=== PATIENT | female | born 1940 | race Caucasian/White ===

== ENCOUNTER 2016-10-07 08:00 | Outpatient (CLI) | payer MEDICARE, OTHER, MEDICAID | END 2016-10-07 08:01 | disposition home or self-care (01) | DX: J11.1 Influenza due to unidentified influenza virus with other respiratory manifestations (principal) ==

== ENCOUNTER 2016-10-14 08:00 | Outpatient (CLI) | payer MEDICARE, OTHER, MEDICAID | END 2016-10-14 08:01 | disposition home or self-care (01) | DX: N39.0 Urinary tract infection, site not specified (principal) ==

== ENCOUNTER 2016-11-21 10:47 | Outpatient (CLI) | payer MEDICARE, OTHER, MEDICAID | END 2016-11-21 10:48 | disposition home or self-care (01) | DX: N39.0 Urinary tract infection, site not specified (principal) ==

== ENCOUNTER 2016-12-25 18:50 | Outpatient (CLI) | payer MEDICARE, OTHER, MEDICAID | END 2016-12-25 18:51 | disposition home or self-care (01) | DX: N39.0 Urinary tract infection, site not specified (principal) ==

== ENCOUNTER 2017-03-08 06:21 | Outpatient (CLI) | payer MEDICARE, OTHER, MEDICAID ==
[2017-03-08 23:37] LABS: BILIRUBIN,URINE NEGATIVE (NEGATIVE); PH,URINE 6.5 PH (5.0-7.5)
[2017-03-09 00:02] LABS: UA CHARGE (STRIP ONLY) YES; UR CULTURE IF IND NOT INDICATED
== END 2017-03-08 06:22 | disposition home or self-care (01) ==
LOC: LAB.R 06:21
DX: R30.9 Painful micturition, unspecified (principal)
CPT/HCPCS: 81001; 81003; 87086

== ENCOUNTER 2017-04-11 16:30 | Outpatient (CLI) | payer MEDICARE, OTHER, MEDICAID ==
[2017-04-11 17:44] LABS: BILIRUBIN,URINE NEGATIVE (NEGATIVE); PH,URINE 7.5 PH (5.0-7.5)
[2017-04-11 17:52] LABS: UA w/ MICROSCOPIC CHARGE YES
[2017-04-11 17:53] LABS: WBC,URINE >25 /HPF (0-5)
[2017-04-11 17:54] LABS: UR CULTURE IF IND NOT INDICATED
== END 2017-04-11 16:31 | disposition home or self-care (01) ==
LOC: LAB.R 16:30
DX: N39.0 Urinary tract infection, site not specified (principal)
CPT/HCPCS: 81001; 81003; 87086

== ENCOUNTER 2017-04-17 08:00 | Outpatient (CLI) | payer MEDICARE, OTHER, MEDICAID ==
[2017-04-17 07:52] LABS: BASOPHILS % (AUTO) 0.5 %; EOSINOPHILS # (AUTO) 0.1 10^3/uL (0.0-0.7); HCT - HEMATOCRIT 38.2 % (37.0-47.0); HGB - HEMOGLOBIN 12.9 g/dL (12.0-16.0); LYMPHOCYTES # (AUTO) 1.6 10^3/uL (1.5-3.5); LYMPHOCYTES % (AUTO) 21.5 %; MEAN CORPUSCULAR HEMOGLOBIN 30.1 pg (27.0-31.0); MEAN CORPUSCULAR HGB CONC 33.7 g/dL (32.0-36.0); MEAN CORPUSCULAR VOLUME 89.3 fL (81.0-99.0); MEAN PLATELET VOLUME 7.9 fL (7.9-10.8); MONOCYTES # (AUTO) 0.6 10^3/uL (0.0-1.0); MONOCYTES % (AUTO) 8.3 %; NEUTROPHILS % (AUTO) 67.7 %; RED BLOOD COUNT 4.28 10^6/uL (4.20-5.40); RED CELL DISTRIBUTION WIDTH 12.5 % (12.0-15.0); UNCORRECTED WHITE BLOOD COUNT 7.4 x10^3/uL; WHITE BLOOD COUNT 7.4 x10^3/uL (4.8-10.8)
[2017-04-17 08:03] LABS: ALBUMIN/GLOBULIN RATIO 1.1 (1.0-2.2); BILIRUBIN,TOTAL 0.8 mg/dL (0.2-1.0); CALCIUM 9.6 mg/dL (8.5-10.3); CREATININE 1.1 mg/dL (0.4-1.0)
== END 2017-04-17 08:01 | disposition home or self-care (01) ==
LOC: LAB.R 08:00
DX: E07.9 Disorder of thyroid, unspecified (principal); I10 Essential (primary) hypertension
CPT/HCPCS: 80053; 84443; 85025

== ENCOUNTER 2017-04-21 01:49 | Emergency (ER) | payer MEDICARE, OTHER, MEDICAID ==
--- NOTE | 2017-04-21 05:00 | XRAY Preliminary Report ---
Exam: XR Hip w/Pelvis 2-3V RT IMPRESSION: 1. No acute fracture or dislocation seen. [facility] SITE ID: [id number]
--- NOTE | 2017-04-21 05:03 | XRAY Report ---
EXAM: RIGHT HIP AND PELVIS RADIOGRAPHY EXAM DATE: 04/21/2017 04:07 AM. HISTORY: Fall, right hip pain. COMPARISONS: None. TECHNIQUE: 1 view of the pelvis and 1 view of the hip. FINDINGS: Bones: No acute fracture seen. Joints: No dislocation. Hip joint spaces are fairly well preserved. Soft Tissues: Vascular calcifications. IMPRESSION: 1. No acute fracture or dislocation seen. [facility] Referring Provider Line: [phone] SITE ID: [id number]
--- NOTE | 2017-04-21 05:13 | ED Physician Documentation ---
PD HPI LOWER EXT INJURY - Stated complaint Stated Complaint: GLF 2 WEEKS AGO - Chief complaint Chief Complaint: General - History obtained from History obtained from: Patient, EMS - History of Present Illness PD HPI LOW EXT INJURY LOCATION: Right, Hip Type of injury: Fall Where injury occurred: Home Timing - onset: How many weeks ago (2) Timing - details: Gradual onset Improved by: Immobilization, Meds Associated symptoms: No: Weakness, Numbness, Tingling Contributing factors: No: Anticoagulated Similar symptoms before: Work up / diagnostics, Treatment Recently seen: Not recently seen - Additional information Additional information: Patient is a 77 year old snf patient who is presenting to the emergency department for hip pain. Patient fell two weeks ago and x-rays were negative at that time. patient complained of pain tonight so the snf gave the patient her pain meds, then sent the patient in for evaluation. Upon initial evaluation in the emergency department patient was pain free. Review of Systems Constitutional: denies: Fever Ears: denies: Ear pain Nose: denies: Rhinorrhea / runny nose Cardiac: denies: Chest pain / pressure Respiratory: denies: Cough GI: denies: Nausea, Vomiting Skin: denies: Rash, Lesions, Abrasion (s), Laceration (s) Musculoskeletal: reports: Extremity pain, Joint pain Neurologic: denies: Generalized weakness, Focal weakness, Numbness, Syncope, Headache, LOC Immunocompromised: denies: Immunocompromised PD PAST MEDICAL HISTORY - Past Medical History Past Medical History: Yes Cardiovascular: Hypertension, Pulmonary embolism, [place] Respiratory: Asthma Neuro: None Endocrine/Autoimmune: None GI: None 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 : None HEENT: None Psych: None Musculoskeletal: None Derm: None - Past Surgical History Past Surgical History: Yes Cardiovascular: Coronary stent HEENT: Tonsil/Adenoidectomy - Present Medications Home Medications: Ambulatory Orders Medication Instructions Recorded Confirmed Acetaminophen/Cod 300/30 [Tylenol 1 each PO Q4-6H 02/19/13 04/07/13 #3] Albuterol [Ventolin Hfa] 2 puffs INH Q4H PRN #1 inhaler 02/19/13 04/07/13 Atorvastatin Calcium [Lipitor] 20 mg PO 02/19/13 04/07/13 Metformin HCl [Glucophage] 500 mg PO 02/19/13 04/07/13 Metoprolol Tartrate [Lopressor] 12.5 mg PO BID 02/19/13 04/07/13 Oxybutynin [Ditropan] 5 mg PO BID 02/19/13 04/07/13 Valsartan [Diovan] 40 mg PO 02/19/13 04/07/13 Bisacodyl [Dulcolax] 10 mg PO BID 05/09/13 05/09/13 Furosemide [Lasix] 20 mg PO DAILY 05/09/13 05/09/13 Levofloxacin [Levaquin] 05/14/13 05/14/13 Clindamycin [Cleocin] 0 mg PO Q6H 05/20/13 05/20/13 - Allergies Allergies/Adverse Reactions: Allergies Allergy/AdvReac Type Severity Reaction Status Date / Time lisinopril Allergy Intermediate Edema Verified 04/07/13 10:19 - Social History Does the pt smoke?: Yes Smoking Status: Current every day smoker Does the pt drink ETOH?: Yes Does the pt have substance abuse?: No - Immunizations Immunizations are current?: Yes - POLST Patient has POLST: No PD ED PE NORMAL - Vitals Vital signs reviewed: Yes - General General: Alert and oriented X 3, No acute distress - HEENT HEENT: Atraumatic - Neck Neck: No bony TTP - Respiratory Respiratory: No respiratory distress - Abdomen Abdomen: Soft - Derm Derm: Normal color, Warm and dry - Neuro Neuro: Alert and oriented X 3, No sensory deficit, Normal speech - Psych Psych: Normal mood, Normal affect PD ED PE EXPANDED - Extremities Extremities: Right hip (mild tenderness to palpation of right hip, no gross deformity) Results - Vitals Vitals: Vital Signs - 24 hr 04/21/17 04/21/17 04/21/17 02:02 04:19 04:30 Temperature 36.5 C 36.0 C L Heart Rate 73 88 Respiratory 29 H 16 16 Rate Blood Pressure 133/86 H 158/93 H O2 Saturation 95 100 Oxygen O2 Source Room air - Rads (name of study) right hip x-ray Radiology: Final report received (no acute fracture or dislocation) PD MEDICAL DECISION MAKING - ED course Complexity details: reviewed old records, reviewed results, re-evaluated patient , d/w patient ED course: Patient was seen and examined at bedside. Patient was in no acute distress and was sent to imaging. When patient returned the results were reviewed. there was no new abnormalities. Patient required no further work up and was stable for discharge with outpatient follow up. Departure - Departure Disposition: 01 Home, Self Care Clinical Impression: Hip pain, right Condition: Good Instructions: ED Contusion Lower Ext Follow-Up: primary,care provider [Other] - As Needed Comments: Your diagnostics today showed no acute fracture or dislocation. You can take your prescribed pain medication and can try ice and heat. You should not be sent back to the emergency department if there is no new fall, or any other type of trauma. You can return at any time for any new injury, or new or uncontrollable symptoms.
[2017-04-21 09:57] VITALS: BP 130/78
--- NOTE | 2017-04-21 14:31 | ED Physician Documentation ---
ED Addendum - Addendum Addendum: 04/21/17 14:30 Took call from GEOVANNY RN, wanted clarification on discharge instructions. Chart reviewed. Told her that if pt needed or wanted reevaluation we would be happy to see her again despite language in discharge instructions.
== END 2017-04-21 09:48 | disposition home or self-care (01) ==
LOC: EDUNIT# → ED 01:49
DX: M25.551 Pain in right hip (principal); I10 Essential (primary) hypertension; I25.2 Old myocardial infarction; J45.909 Unspecified asthma, uncomplicated; Z86.711 Personal history of pulmonary embolism; F17.200 Nicotine dependence, unspecified, uncomplicated
CPT/HCPCS: 99283; 99284

== ENCOUNTER 2017-04-21 01:51 | Outpatient (CLI) | payer MEDICARE, OTHER, MEDICAID | END 2017-04-21 01:52 | disposition critical access hospital (66) | LOC: EMS 01:51 | PROVIDERS: ATTEND Surgery | DX: M25.551 Pain in right hip (principal) | CPT/HCPCS: A0425; A0429 ==

== ENCOUNTER 2017-04-23 10:48 | Outpatient (CLI) | payer MEDICARE, OTHER, MEDICAID ==
--- NOTE | 2017-04-23 12:38 | CT Preliminary Report ---
Exam: CT Lower Extremity Right W/O IMPRESSION: 1. Right superior and inferior pubic ramus fracture. 2. Sagittally oriented fracture through the lateral third of the sacrum on the right. [facility] SITE ID: [id number]
--- NOTE | 2017-04-23 13:24 | CT Report ---
EXAM: RIGHT HIP CT WITHOUT CONTRAST EXAM DATE: 04/23/2017 12:08 PM. CLINICAL HISTORY: Fall, right hip pain. COMPARISON: Plain x-ray 04/21/2017. TECHNIQUE: Thin-section axial images were acquired of the hip without contrast. Post-processing: Ifeoma nal and sagittal reformats. Other: None. In accordance with CT protocol optimization, one or more of the following dose reduction techniques w ere utilized for this exam: automated exposure control, adjustment of mA and/or KV based on patient s ize, or use of iterative reconstructive technique. FINDINGS: Bones: 1. Right superior and inferior pubic ramus fracture. 2. Sagittally oriented fracture through the lateral third of the sacrum on the right side. 3. Significant osteopenic changes. No other fractures. Joints: Joint spaces show symmetric narrowing, no calcified loose bodies or large joint effusions. Musculature: Normal. No fatty atrophy. Other: The visualized intraperitoneal structures are unremarkable. IMPRESSION: 1. Right superior and inferior pubic ramus fracture. 2. Sagittally oriented fracture through the lateral third of the sacrum on the right. [facility] Referring Provider Line: [phone] SITE ID: [id number]
== END 2017-04-23 10:49 | disposition home or self-care (01) ==
LOC: DI 10:48
PROVIDERS: ATTEND Family Medicine
DX: S32.591A Other specified fracture of right pubis, initial encounter for closed fracture (principal); S32.10XA Unspecified fracture of sacrum, initial encounter for closed fracture; M85.80 Other specified disorders of bone density and structure, unspecified site

== ENCOUNTER 2017-04-26 06:30 | Outpatient (CLI) | payer MEDICARE, OTHER, MEDICAID ==
[2017-04-26 07:27] LABS: CALCIUM 8.9 mg/dL (8.5-10.3); CREATININE 1.4 mg/dL (0.4-1.0); POTASSIUM 4.2 mmol/L (3.5-5.0)
== END 2017-04-26 06:31 ==
LOC: LAB.R 06:30
DX: E87.1 Hypo-osmolality and hyponatremia (principal)
CPT/HCPCS: 80048

== ENCOUNTER 2017-04-27 11:20 | Outpatient (CLI) | payer MEDICARE, OTHER, MEDICAID ==
[2017-04-27 13:24] LABS: BILIRUBIN,URINE NEGATIVE (NEGATIVE); PH,URINE 6.5 PH (5.0-7.5)
[2017-04-27 13:25] LABS: UA w/ MICROSCOPIC CHARGE YES
[2017-04-27 13:32] LABS: UR CULTURE IF IND NOT INDICATED; WBC,URINE 0-3 /HPF (0-5)
== END 2017-04-27 11:21 | disposition home or self-care (01) ==
LOC: LAB.R 11:20
DX: N39.0 Urinary tract infection, site not specified (principal)
CPT/HCPCS: 81001; 81003; 87086

== ENCOUNTER 2017-04-28 11:40 | Outpatient (CLI) | payer MEDICARE, OTHER, MEDICAID ==
[2017-04-28 16:44] LABS: BILIRUBIN,URINE NEGATIVE (NEGATIVE); PH,URINE 6.5 PH (5.0-7.5)
[2017-04-28 16:48] LABS: UA CHARGE (STRIP ONLY) YES; UR CULTURE IF IND NOT INDICATED
== END 2017-04-28 11:41 | disposition home or self-care (01) ==
LOC: LAB.R 11:40
DX: N39.0 Urinary tract infection, site not specified (principal)
CPT/HCPCS: 81001; 81003; 87086

== ENCOUNTER 2017-05-13 08:00 | Outpatient (CLI) | payer MEDICARE, OTHER, MEDICAID ==
[2017-05-13 09:52] LABS: BASOPHILS # (AUTO) 0.1 10^3/uL (0.0-0.1); BASOPHILS % (AUTO) 0.7 %; EOSINOPHILS # (AUTO) 0.3 10^3/uL (0.0-0.7); EOSINOPHILS % (AUTO) 4.3 %; HCT - HEMATOCRIT 40.6 % (37.0-47.0); HGB - HEMOGLOBIN 13.5 g/dL (12.0-16.0); LYMPHOCYTES # (AUTO) 1.5 10^3/uL (1.5-3.5); LYMPHOCYTES % (AUTO) 20.5 %; MEAN CORPUSCULAR HEMOGLOBIN 29.7 pg (27.0-31.0); MEAN CORPUSCULAR HGB CONC 33.2 g/dL (32.0-36.0); MEAN CORPUSCULAR VOLUME 89.5 fL (81.0-99.0); MEAN PLATELET VOLUME 7.8 fL (7.9-10.8); MONOCYTES # (AUTO) 0.5 10^3/uL (0.0-1.0); MONOCYTES % (AUTO) 6.1 %; NEUTROPHILS % (AUTO) 68.4 %; RED BLOOD COUNT 4.54 10^6/uL (4.20-5.40); RED CELL DISTRIBUTION WIDTH 13.2 % (12.0-15.0); UNCORRECTED WHITE BLOOD COUNT 7.4 x10^3/uL; WHITE BLOOD COUNT 7.4 x10^3/uL (4.8-10.8)
[2017-05-13 09:53] LABS: BILIRUBIN,URINE NEGATIVE (NEGATIVE)
== END 2017-05-13 08:01 | disposition home or self-care (01) ==
LOC: LAB.R 08:00
DX: R68.89 Other general symptoms and signs (principal); N39.0 Urinary tract infection, site not specified
CPT/HCPCS: 81003; 85025

== ENCOUNTER 2017-05-29 16:10 | Outpatient (CLI) | payer MEDICARE, OTHER, MEDICAID ==
[2017-05-29 22:18] LABS: BASOPHILS # (AUTO) 0.1 10^3/uL (0.0-0.1); BASOPHILS % (AUTO) 0.6 %; EOSINOPHILS # (AUTO) 0.3 10^3/uL (0.0-0.7); EOSINOPHILS % (AUTO) 3.5 %; HCT - HEMATOCRIT 39.1 % (37.0-47.0); HGB - HEMOGLOBIN 12.9 g/dL (12.0-16.0); LYMPHOCYTES # (AUTO) 1.8 10^3/uL (1.5-3.5); LYMPHOCYTES % (AUTO) 19.7 %; MEAN CORPUSCULAR HGB CONC 32.9 g/dL (32.0-36.0); MEAN CORPUSCULAR VOLUME 91.2 fL (81.0-99.0); MEAN PLATELET VOLUME 8.1 fL (7.9-10.8); MONOCYTES # (AUTO) 0.4 10^3/uL (0.0-1.0); MONOCYTES % (AUTO) 4.7 %; NEUTROPHILS # (AUTO) 6.4 10^3/uL (1.5-6.6); NEUTROPHILS % (AUTO) 71.5 %; RED BLOOD COUNT 4.29 10^6/uL (4.20-5.40); RED CELL DISTRIBUTION WIDTH 13.6 % (12.0-15.0); UNCORRECTED WHITE BLOOD COUNT 8.9 x10^3/uL; WHITE BLOOD COUNT 8.9 x10^3/uL (4.8-10.8)
[2017-05-29 23:08] LABS: BILIRUBIN,TOTAL 0.6 mg/dL (0.2-1.0); CALCIUM 9.8 mg/dL (8.5-10.3); CREATININE 1.6 mg/dL (0.4-1.0); POTASSIUM 4.8 mmol/L (3.5-5.0); TOTAL PROTEIN 6.1 g/dL (6.7-8.2)
== END 2017-05-29 16:11 | disposition home or self-care (01) ==
LOC: LAB.R 16:10
DX: J44.9 Chronic obstructive pulmonary disease, unspecified (principal)
CPT/HCPCS: 80053; 85025

== ENCOUNTER 2017-06-16 06:23 | Outpatient (CLI) | payer MEDICARE, OTHER, MEDICAID ==
[2017-06-16 19:58] LABS: CALCIUM 9.6 mg/dL (8.5-10.3); CREATININE 1.2 mg/dL (0.4-1.0); POTASSIUM 4.1 mmol/L (3.5-5.0)
== END 2017-06-16 06:24 | disposition home or self-care (01) ==
LOC: LAB.R 06:23
DX: E88.9 Metabolic disorder, unspecified (principal)
CPT/HCPCS: 80048

== ENCOUNTER 2017-06-19 13:45 | Outpatient (CLI) | payer MEDICARE, OTHER, MEDICAID ==
[2017-06-19 20:08] LABS: BILIRUBIN,URINE NEGATIVE (NEGATIVE); PH,URINE 8.5 PH (5.0-7.5)
[2017-06-19 20:10] LABS: UA w/ MICROSCOPIC CHARGE YES
[2017-06-19 20:23] LABS: UR CULTURE IF IND INDICATED; WBC,URINE >25 /HPF (0-5)
== END 2017-06-19 13:46 | disposition home or self-care (01) ==
LOC: LAB.R 13:45
DX: R39.0 Extravasation of urine (principal)
CPT/HCPCS: 81001; 81003; 87077; 87086

== ENCOUNTER 2017-07-02 08:00 | Outpatient (CLI) | payer MEDICARE, OTHER, MEDICAID ==
[2017-07-02 17:48] LABS: HEMOGLOBIN A1C 0.45 g/dL
== END 2017-07-02 08:01 | disposition home or self-care (01) ==
LOC: LAB.R 08:00
DX: E03.9 Hypothyroidism, unspecified (principal); E11.9 Type 2 diabetes mellitus without complications
CPT/HCPCS: 83036; 84443

== ENCOUNTER 2017-08-09 08:00 | Outpatient (CLI) | payer MEDICARE, OTHER, MEDICAID ==
[2017-08-09 17:06] LABS: CALCIUM 9.5 mg/dL (8.5-10.3); CREATININE 1.1 mg/dL (0.4-1.0); POTASSIUM 4.3 mmol/L (3.5-5.0)
== END 2017-08-09 08:01 | disposition home or self-care (01) ==
LOC: LAB.R 08:00
DX: R79.89 Other specified abnormal findings of blood chemistry (principal)
CPT/HCPCS: 80048

== ENCOUNTER → 2017-08-14 | Outpatient (CLI) | payer MEDICARE, OTHER, MEDICAID ==
[2017-08-14 14:40] LABS: CALCIUM 9.6 mg/dL (8.5-10.3); CREATININE 1.2 mg/dL (0.4-1.0); POTASSIUM 4.4 mmol/L (3.5-5.0)
== END ==
LOC: LAB.R 10:55
DX: R79.89 Other specified abnormal findings of blood chemistry (principal)
CPT/HCPCS: 80048

== ENCOUNTER 2017-08-21 14:25 | Outpatient (CLI) | payer MEDICARE, OTHER, MEDICAID ==
[2017-08-21 13:41] LABS: POTASSIUM 3.9 mmol/L (3.5-5.0)
[2017-08-21 13:42] LABS: CALCIUM 9.5 mg/dL (8.5-10.3); CREATININE 1.2 mg/dL (0.4-1.0)
== END 2017-08-21 14:26 | disposition home or self-care (01) ==
LOC: LAB.WCP 14:25 → LAB.R 14:26
DX: I50.9 Heart failure, unspecified (principal)
CPT/HCPCS: 80048

== ENCOUNTER 2017-08-27 10:43 | Outpatient (CLI) | payer MEDICARE, OTHER, MEDICAID ==
[2017-08-27 12:51] LABS: CALCIUM 9.5 mg/dL (8.5-10.3); CREATININE 1.1 mg/dL (0.4-1.0); POTASSIUM 4.2 mmol/L (3.5-5.0)
== END 2017-08-27 10:44 | disposition home or self-care (01) ==
LOC: LAB.R 10:43
DX: R79.89 Other specified abnormal findings of blood chemistry (principal)
CPT/HCPCS: 80048; 83880

== ENCOUNTER 2017-09-07 11:25 | Outpatient (CLI) | payer MEDICARE, OTHER, MEDICAID ==
[2017-09-07 11:59] LABS: CALCIUM 9.5 mg/dL (8.5-10.3); CREATININE 1.4 mg/dL (0.4-1.0); POTASSIUM 3.8 mmol/L (3.5-5.0)
== END 2017-09-07 11:26 | disposition home or self-care (01) ==
LOC: LAB.R 11:25
DX: I50.9 Heart failure, unspecified (principal)
CPT/HCPCS: 80048

== ENCOUNTER 2017-09-13 10:25 | Outpatient (CLI) | payer MEDICARE, OTHER, MEDICAID ==
[2017-09-13 12:04] LABS: CALCIUM 9.2 mg/dL (8.5-10.3); CREATININE 1.2 mg/dL (0.4-1.0); POTASSIUM 3.8 mmol/L (3.5-5.0)
== END 2017-09-13 10:26 | disposition home or self-care (01) ==
LOC: LAB.R 10:25
DX: I50.9 Heart failure, unspecified (principal)
CPT/HCPCS: 80048

== ENCOUNTER 2017-10-16 08:00 | Outpatient (CLI) | payer MEDICARE, OTHER, MEDICAID ==
[2017-10-17 01:55] LABS: BACTERIA,URINE Moderate /HPF (None Seen); BILIRUBIN,URINE NEGATIVE (NEGATIVE); CLARITY,URINE HAZY (CLEAR); GLUCOSE, URINE (UA) NEGATIVE (NEGATIVE); KETONES,URINE (UA) NEGATIVE (NEGATIVE); LEUKOCYTE ESTERASE, URINE TRACE (NEGATIVE); NITRITE,URINE NEGATIVE (NEGATIVE); OCCULT BLOOD,URINE NEGATIVE (NEGATIVE); PROTEIN,URINE NEGATIVE (NEGATIVE); RBC,URINE 0-5 /HPF (0-5); SQUAMOUS EPITHELIAL CELL,UR RARE Squamous (<= Few); UROBILINOGEN,URINE 0.2 (NORMAL) E.U./dL (NORMAL)
== END 2017-10-16 23:59 | disposition home or self-care (01) ==
LOC: LAB.R 08:00
DX: R30.0 Dysuria (principal); I50.9 Heart failure, unspecified
CPT/HCPCS: 80048; 81001; 81003; 87077; 87086

== ENCOUNTER 2017-10-16 19:15 | Outpatient (CLI) | payer MEDICARE, OTHER, MEDICAID ==
[2017-10-16 23:54] LABS: CREATININE 1.1 mg/dL (0.4-1.0)
== END 2017-10-16 19:16 | disposition home or self-care (01) ==
LOC: LAB.R 19:15
DX: I50.9 Heart failure, unspecified (principal)
CPT/HCPCS: 80048

== ENCOUNTER 2017-12-27 08:00 | Outpatient (CLI) | payer MEDICARE, OTHER, MEDICAID | END 2017-12-27 08:01 | disposition home or self-care (01) | LOC: LAB.R 08:00 | DX: A08.11 Acute gastroenteropathy due to Norwalk agent (principal) | CPT/HCPCS: 87493; 87798 ==

== ENCOUNTER 2018-01-14 11:41 | Outpatient (CLI) | payer MEDICARE, OTHER, MEDICAID | END 2018-01-14 11:42 | disposition critical access hospital (66) | LOC: EMS 11:41 | PROVIDERS: ATTEND Surgery | DX: R41.0 Disorientation, unspecified (principal) | CPT/HCPCS: A0425; A0429 ==

== ENCOUNTER 2018-01-14 11:48 | Emergency (ER) | payer MEDICARE, OTHER, MEDICAID ==
--- NOTE | 2018-01-14 12:19 | CT Report ---
EXAM: CT HEAD EXAM DATE: 01/14/2018 12:10 PM. CLINICAL HISTORY: Weakness right sided. COMPARISON: CT head 04/10/2013. TECHNIQUE: Multiaxial CT images were obtained from the foramen magnum to the vertex. Reformats: Coron al. IV contrast: None. In accordance with CT protocol optimization, one or more of the following dose reduction techniques w ere utilized for this exam: automated exposure control, adjustment of mA and/or KV based on patient s ize, or use of iterative reconstructive technique. FINDINGS: Parenchyma: No intraparenchymal hemorrhage. No evidence of mass, midline shift, or CT findings of acu te infarction. Chronic appearing small right basal ganglia lacunar infarct. Brown-white differentiatio n is otherwise distinct. Diffuse chronic microangiopathic white matter changes are evident. Extraaxial Spaces: Normal for age. No subdural or epidural collections identified. Ventricles: The ventricles and cortical sulci are mildly enlarged, consistent with age-related tissue loss. Sinuses and orbits: Imaged paranasal sinuses, orbits, and mastoids show no significant abnormality. Bones: No evidence of fracture or calvarial defect. Other: None. IMPRESSION: Generalized age-related cortical atrophic and probable chronic microvascular changes with out evidence of acute intracranial abnormality. [facility] The call report notification system was initiated by Dr. Sam Coppola at 12:15 hrs on 01/14/18. The above findings were discussed with Dr. Perrin by Dr. Sam Coppola at 12:17 hrs on 01/14/18. Referring Provider Line: [phone] SITE ID: [id number]
--- NOTE | 2018-01-14 12:24 | ED Physician Documentation ---
PD HPI FOCAL NEURO - Stated complaint Stated Complaint: Weakness - Chief complaint Chief Complaint: Neuro - History obtained from History obtained from: Patient, Caregiver (Rn from [facility] [place] bedside, [place]) - History of Present Illness Timing - onset: Today (This is a 77-year-old woman who presents from a detention. She has a history of PE, A. fib, and aortofemoral thrombus, only on aspirin, no other anticoagulation. She also has reported dementia. Starting around 1115 she developed slurred speech and a right facial droop and confusion which persists. Patient denies headache. No history of TIA or stroke. 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 : None HEENT: None Psych: None Musculoskeletal: None Derm: None - Past Surgical History Past Surgical History: Yes Cardiovascular: Coronary stent HEENT: Tonsil/Adenoidectomy - Present Medications Home Medications: Ambulatory Orders Medication Instructions Recorded Confirmed Oxybutynin [Ditropan] 5 mg PO BID 02/19/13 01/14/18 Valsartan [Diovan] 40 mg PO DAILY 02/19/13 01/14/18 Acetaminophen [Tylenol] 650 mg PO BID 01/14/18 01/14/18 Aspirin Chewable [[place] 81 mg PO DAILY 01/14/18 01/14/18 Aspirin] Chlorthalidone 25 mg PO DAILY 01/14/18 01/14/18 Hydrocodone/Acetaminophen 1 each PO Q3H PRN 01/14/18 01/14/18 [Hydrocodone-Acetamin 5-325 mg] Levothyroxine Sodium [Synthroid] 50 mcg PO MOTUWETHFRSA 01/14/18 01/14/18 Levothyroxine Sodium [Synthroid] 100 mcg PO MATTHEWS 01/14/18 01/14/18 Metoprolol Succinate [Toprol Xl] 25 mg PO DAILY 01/14/18 01/14/18 QUEtiapine [SEROquel] 75 mg PO DAILY 01/14/18 01/14/18 QUEtiapine [SEROquel] 100 mg PO QPM 01/14/18 01/14/18 Saccharomyces Boulardii [Florastor] 250 mg PO BID 01/14/18 01/14/18 traMADol [Ultram] 25 mg PO BID 01/14/18 01/14/18 - Allergies Allergies/Adverse Reactions: Allergies Allergy/AdvReac Type Severity Reaction Status Date / Time lisinopril Allergy Intermediate Edema Verified 04/07/13 10:19 - Social History Does the pt smoke?: Yes Smoking Status: Current every day smoker Does the pt drink ETOH?: Yes Does the pt have substance abuse?: No - Immunizations Immunizations are current?: Yes - POLST Patient has POLST: No PD ED PE NORMAL - Vitals Vital signs reviewed: Yes - General General: No acute distress, Well developed/nourished, Other (She has trouble coming up with the date, she quickly identifies the month as December, with difficulty she eventually says it is the year , but she seems to think it is 1917.) - HEENT HEENT: PERRL, EOMI - Neck Neck: Supple, no meningeal sign, No bony TTP - Cardiac Cardiac: Other (Irregularly irregular) - Respiratory Respiratory: No respiratory distress, Clear bilaterally - Abdomen Abdomen: Normal bowel sounds, Soft, Non tender - Neuro Neuro: Alert and oriented X 3 Eye Opening: Spontaneous Motor: Obeys Commands Verbal: Oriented GCS Score: 15 - Psych Psych: Normal mood, Normal affect NIHSS - Time Time: 12:15 - Level of Consciousness Level of consciousness: (0) Alert, Keenly responsive LOC Questions: (1) Answers one Q correctly LOC Commands: (0) Performs both correctly - Gaze Best Gaze: (0) Normal - Visual Visual: (0) No loss - Facial Palsy Facial Palsy: (1) Minor paralysis (Right side) - Motor Arms (both separate) Motor Arm (right): (0) No drift Motor Arm (left): (0) No drift - Motor Legs (both separate) Motor Leg (right): (0) No drift Motor Leg (left): (0) No drift - Limb Ataxia Limb Ataxia: (0) Absent - Sensory Sensory: (0) Normal - Best Language Best Language: (1) [id number] - Dysarthria Dysarthria: (0) Normal - Extinction and Inattention (formally neg Extinction and inattention: (0) No abnormality - Total Score/Results Total Score/Result: 3 Results - Vitals Vitals: Vital Signs - 24 hr 01/14/18 01/14/18 01/14/18 11:54 13:33 15:00 Temperature 36.6 C Heart Rate 68 81 97 Respiratory 17 14 22 Rate Blood Pressure 156/96 H 140/97 H O2 Saturation 97 100 97 Oxygen O2 Source Room air - EKG (time done) 1257 Rate: Rate (enter#) (79) Rhythm: NSR [place]: Normal Intervals: Normal PA Ischemia: Q waves (inferior) Computer interpretation: Agree with computer - Labs Labs: Laboratory Tests 01/14/18 01/14/18 01/14/18 11:55 11:55 11:55 WBC 6.9 RBC 4.50 Hgb 13.6 Hct 40.6 MCV 90.3 MCH 30.3 MCHC 33.6 RDW 13.5 Plt Count 184 MPV 7.7 L Neut # 4.3 Lymph # 1.6 [place] # 0.5 Eos # 0.5 Baso # 0.1 Absolute Nucleated RBC 0.00 Nucleated RBC % 0.0 PT 11.9 INR 1.1 Whole Blood INR Sodium 131 L Potassium 4.4 Chloride 99 L Carbon Dioxide 24 Anion Gap 8.0 BUN 17 Creatinine 1.1 H Estimated GFR (MDRD) 48 L Glucose 92 Calcium 9.6 Total Bilirubin 0.6 AST 24 ALT 18 Alkaline Phosphatase 104 Total Protein 7.5 Albumin 3.9 Globulin 3.6 Albumin/Globulin Ratio 1.1 Lipase 29 Urine Color Urine Clarity Urine pH Ur Specific [place] Urine Protein Urine Glucose (UA) Urine Ketones Urine Occult Blood Urine Nitrite Urine Bilirubin Urine Urobilinogen Ur Leukocyte Esterase Ur Microscopic Review Urine Culture Comments 01/14/18 01/14/18 12:39 12:48 WBC RBC Hgb Hct MCV MCH MCHC RDW Plt Count MPV Neut # Lymph # [place] # Eos # Baso # Absolute Nucleated RBC Nucleated RBC % PT INR Whole Blood INR < 0.9 Sodium Potassium Chloride Carbon Dioxide Anion Gap BUN Creatinine Estimated GFR (MDRD) Glucose Calcium Total Bilirubin AST ALT Alkaline Phosphatase Total Protein Albumin Globulin Albumin/Globulin Ratio Lipase Urine Color YELLOW Urine Clarity CLEAR Urine pH 7.0 Ur Specific [place] <=1.005 Urine Protein NEGATIVE Urine Glucose (UA) NEGATIVE Urine Ketones NEGATIVE Urine Occult Blood NEGATIVE Urine Nitrite NEGATIVE Urine Bilirubin NEGATIVE Urine Urobilinogen 0.2 (NORMAL) Ur Leukocyte Esterase NEGATIVE Ur Microscopic Review NOT INDICATED Urine Culture Comments NOT INDICATED - Rads (name of study) Ct Head and Neck Angio Radiology: EMP read contemporaneously (Lot's of atherosclerosis and DJD neck, no lg vessel occlusion) PD MEDICAL DECISION MAKING - ED course ED course: 77-year-old woman presents with symptoms of an acute CVA in the window for TPA. Her functional status at baseline is not great and she is comfort care only. I am not sure what the historical reason for her not being on anticoagulation is , she certainly has several reasons that she would be, the note that accompanies her from the detention from Dr. Odom states that he did not know the historical reason for her not being on anticoagulation. I assume there may be have been some contraindication. I discussed the case with [place] tele-stroke, Dr. Mike who recommended against TPA but recommended for vessel imaging to rule out a large vessel occlusion, if negative he recommends this be treated conservatively without TPA and consideration for starting of anticoagulation in a couple of weeks. Spoke with Dr Christian for obs at 241pm However when I went to tell her this she adamantly refused staying in the hospital. She has a listed history of dementia but I believe she is capable of making decisions in her own healthcare. She is alert and oriented and is able to verbalize back to me the risks of leaving AGAINST MEDICAL ADVICE. I updated Dr. Christian I also left a voicemail for Dr. Odom, the medical control for [facility] regarding what had transpired. Departure - Departure Disposition: 07 Against Medical Advice Clinical Impression: Cerebrovascular accident (CVA) Qualifiers: CVA mechanism: embolism Precerebral and cerebral artery: unspecified precerebral artery Qualified Code(s): I63.10 - Cerebral infarction due to embolism of unspecified precerebral artery Condition: Serious Discharge Date/Time: 01/14/18 15:57
[2018-01-14 12:35] LABS: BASOPHILS # (AUTO) 0.1 10^3/uL (0.0-0.1); BASOPHILS % (AUTO) 0.9 %; EOSINOPHILS # (AUTO) 0.5 10^3/uL (0.0-0.7); EOSINOPHILS % (AUTO) 7.8 %; HGB - HEMOGLOBIN 13.6 g/dL (12.0-16.0); LYMPHOCYTES # (AUTO) 1.6 10^3/uL (1.5-3.5); LYMPHOCYTES % (AUTO) 22.9 %; MEAN CORPUSCULAR HEMOGLOBIN 30.3 pg (27.0-31.0); MEAN CORPUSCULAR HGB CONC 33.6 g/dL (32.0-36.0); MEAN CORPUSCULAR VOLUME 90.3 fL (81.0-99.0); MEAN PLATELET VOLUME 7.7 fL (7.9-10.8); MONOCYTES # (AUTO) 0.5 10^3/uL (0.0-1.0); MONOCYTES % (AUTO) 6.5 %; NEUTROPHILS # (AUTO) 4.3 10^3/uL (1.5-6.6); NEUTROPHILS % (AUTO) 61.9 %; PLT - PLATELET COUNT 184 10^3/uL (130-450); RED CELL DISTRIBUTION WIDTH 13.5 % (12.0-15.0); WHITE BLOOD COUNT 6.9 x10^3/uL (4.8-10.8)
[2018-01-14 12:40] LABS: ALBUMIN 3.9 g/dL (3.2-5.5); ALBUMIN/GLOBULIN RATIO 1.1 (1.0-2.2); BILIRUBIN,TOTAL 0.6 mg/dL (0.2-1.0); CALCIUM 9.6 mg/dL (8.5-10.3); CREATININE 1.1 mg/dL (0.4-1.0); TOTAL PROTEIN 7.5 g/dL (6.7-8.2)
[2018-01-14 12:48] LABS: INR 1.1 (0.8-1.2); PT - PROTHROMBIN TIME 11.9 secs (9.9-12.6)
[2018-01-14] MEDS ORDERED: IOPAMIDOL-300 100 ML VIAL ONE (12:59)
[2018-01-14 13:09] LABS: BILIRUBIN,URINE NEGATIVE (NEGATIVE); GLUCOSE, URINE (UA) NEGATIVE (NEGATIVE); KETONES,URINE (UA) NEGATIVE (NEGATIVE); LEUKOCYTE ESTERASE, URINE NEGATIVE (NEGATIVE); NITRITE,URINE NEGATIVE (NEGATIVE); OCCULT BLOOD,URINE NEGATIVE (NEGATIVE); PROTEIN,URINE NEGATIVE (NEGATIVE); UROBILINOGEN,URINE 0.2 (NORMAL) E.U./dL (NORMAL)
[2018-01-14 13:10] LABS: CLARITY,URINE CLEAR (CLEAR)
[2018-01-14] MEDS ORDERED: IOPAMIDOL-300 100 ML VIAL IVP ONE (13:37)
--- NOTE | 2018-01-14 14:06 | CT Preliminary Report ---
Exam: CT NECK ANGIO Impression: 1. Atherosclerotic disease at the carotid bifurcations gives rise to narrowing in both carotid bulbs. There appears be about 25% NASCET type stenosis in the right carotid bulb with roughly 40% narrowing in the left carotid bulb. 2. There is calcified plaque in proximal V1 segment right vertebral artery. It is difficult to assess associated stenosis due to the small size of the vessel and prominent tortuosity in the proximal V1 segment. There probably is 50% or close to 50% stenosis in the V1 segment. The extracranial vertebral arteries are otherwise unremarkable. No stenosis is identified in dominant left vertebral artery. 3. Multilevel degenerative change in the cervical spine with associated spinal canal narrowing. The n arrowing appears most pronounced at the C5-C6 disk level where the mid sagittal canal diameter is red uced to about 7 mm. The possibility of cord impingement cannot be excluded. Consider further assessme nt with a dedicated imaging of the cervical spine if there is any clinical evidence of cervical myelo shira. SITE ID: [id number]
--- NOTE | 2018-01-14 14:22 | CT Preliminary Report ---
Exam: CT HEAD ANGIO Impression: CT angiogram head 1. There is calcified plaque in the carotid siphons and both vertebral arteries without associated, h emodynamically significant ICA or vertebral artery stenosis. 2. Otherwise unremarkable intracranial CT angiogram. In particular, no evidence of occlusion or hemodynamically significant stenosis affecting main branch es of the anterior or posterior circulations. Postcontrast head CT No enhancing space-occupying mass lesion is demonstrated. SITE ID: [id number]
--- NOTE | 2018-01-14 14:57 | CT Report ---
CT ANGIOGRAM NECK INDICATION: 77-year-old female with right-sided weakness. Concern for CVA. Please assess. COMPARISON: None. TECHNIQUE: 100 mL of Isovue-300 contrast were injected at a rapid rate through a large bore right antecubital in travenous catheter. The neck was scanned helically and data was reconstructed into 0.5 mm axial image s. In addition, MIP reconstructions have been generated in multiple projections to allow better asses sment of the extracranial carotid and vertebral arteries. FINDINGS: There is normal branching of the aortic arch. There is atherosclerotic disease in the arch. Calcified atherosclerotic plaques are seen in the proximal first-order supra-aortic arteries without significa nt associated stenosis. Right carotid artery: There is calcified plaque along the medial and lateral miles at the carotid bif urcation extending into the carotid bulb. Associated narrowing in the carotid bulb. At the level of m aximal stenosis the transverse luminal diameter is reduced to about 3 mm. More distally via ICA measu res about 4 mm. This is consistent with a 25% NASCET-type stenosis. Left carotid artery: There is calcified plaque at the carotid bifurcation, extending into the carotid bulb. There is assoc iated narrowing in the bulb. Level of maximal stenosis. The lumen is reduced to roughly 3 mm. More di stally, the artery measures close to 5 mm. This is consistent with a 40% NASCET-type stenosis. Right vertebral artery: There is calcified plaque at the origin and throughout the first 9 or so mill imeters of the V1 segment. The small size of the vessel and tortuosity within the vessel make it diff icult to evaluate for associated stenosis. However, there probably is at least 50% diameter narrowing . The V1 segment is otherwise unremarkable. The V2 and V3 segments are patent. Left vertebral artery: Patent origin. There is calcified plaque in the wall of the proximal V1 segmen t without significant associated stenosis. Mid and distal V1 segment appear widely patent. V2 and V3 segments are patent. Incidentally noted are fairly advanced degenerative changes in the cervical spine with associated mul tilevel spinal canal narrowing. The narrowing appears to be most pronounced at the C5-C6 disk level, where mid sagittal canal diameter is reduced to about 7 mm. The possibility of mild cord impingement cannot be excluded. There are significant multilevel bony foraminal stenoses as well. IMPRESSION: 1. Atherosclerotic disease at the carotid bifurcations gives rise to narrowing in both carotid bulbs. There appears to be about 25% NASCET type stenosis in the right carotid bulb with roughly 40% narrow ing in the left carotid bulb. 2. There is calcified plaque in proximal V1 segment right vertebral artery. It is difficult to assess associated stenosis due to the small size of the vessel and prominent tortuosity in the proximal V1 segment. There probably is 50% or close to 50% stenosis in the V1 segment. The extracranial vertebral arteries are otherwise unremarkable. No stenosis is identified in dominant left vertebral artery. 3. Multilevel degenerative change in the cervical spine with associated spinal canal narrowing. The n arrowing appears to be most pronounced at the C5-C6 disk level where the mid sagittal canal diameter is reduced to about 7 mm. The possibility of cord impingement cannot be excluded. Consider further as sessment with dedicated imaging of the cervical spine if there is any clinical evidence of cervical m yelopathy. Referring Provider Line: [phone] SITE ID: [id number]
--- NOTE | 2018-01-14 14:57 | CT Report ---
CT ANGIOGRAM HEAD AND POSTCONTRAST HEAD CT EXAM DATE: 01/14/2018. INDICATION: 77-year-old female with right-sided weakness. Concern for acute CVA. Please assess. COMPARISON: None. TECHNIQUE: CT Angiogram Head 100 cc of Isovue-300 contrast were injected at a rapid rate through a large bore antecubital intraven ous catheter. The head was scanned helically during arterial phase. Data was reconstructed into 0.5 m m axial images. In addition, MIP reconstructions have been generated in multiple projections to allow better assessment of the intracranial arteries. Postcontrast Head CT Sequential 5 mm axial images were obtained through the brain following the CT angiogram. FINDINGS: CT Angiogram Head Anterior circulation: There is minor calcified atherosclerotic plaque scattered throughout the carotid siphons without asso ciated ICA stenosis. No ICA aneurysm is identified. The A1 segments of the anterior cerebral arteries are essentially codominant. There probably is a tiny anterior communicating artery. There appears to be good filling of the A2 and distal JANET branches. No obvious JANET branch occlusion is identified. The middle cerebral arteries are unremarkable. No aneurysm is demonstrated and there is no evidence o f occlusion or hemodynamically significant stenosis affecting main branches of either middle cerebral artery. There appear to be a similar number of opacified M3 and M4 branches bilaterally. Posterior circulation: There is calcified plaque in the proximal/middle thirds of both vertebral arteries. Associated, mild vertebral artery stenoses. No hemodynamically significant vertebral artery narrowing is demonstrated. There is filling of both PICAs. No aneurysm at either PICA origin. The basilar artery is tortuous bu t widely patent. There appears to be good filling of the superior cerebellar arteries. In addition, t here appears to be good filling of the main branches of both concrete mixer operator helper. The P1 segment of the right cable respooler ior cerebral artery is either extremely hypoplastic or developmentally absent. There is a large right posterior communicating artery that supplies the P2 and distal right SEPTIC TANK INSTALLER branches. 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 No definite left posterior communicator is see n. No aneurysms are demonstrated arising from the basilar artery trunk or apex. Postcontrast Head CT No enhancing space-occupying mass lesion is demonstrated. There appears to be normal intravascular co ntrast enhancement in the dural venous sinuses and deep venous structures. IMPRESSION: CT Angiogram Head 1. There is calcified plaque in the carotid siphons and both vertebral arteries without associated, h emodynamically significant ICA or vertebral artery stenosis. 2. Otherwise unremarkable intracranial CT angiogram. In particular, no evidence of occlusion or hemodynamically significant stenosis affecting main branch es of the anterior or posterior circulations. Postcontrast Head CT No enhancing space-occupying mass lesion is demonstrated. Referring Provider Line: [phone] SITE ID: [id number]
[2018-01-14 15:32] VITALS: BP 140/97
== END 2018-01-14 15:57 | disposition left against medical advice (07) ==
LOC: EDUNIT# → ED 11:48
DX: I63.10 Cerebral infarction due to embolism of unspecified precerebral artery (principal); Z53.29 Procedure and treatment not carried out because of patient's decision for other reasons; I48.91 Unspecified atrial fibrillation; Z86.711 Personal history of pulmonary embolism; Z79.82 Long term (current) use of aspirin; F03.90 Unspecified dementia, unspecified severity, without behavioral disturbance, psychotic disturbance, mood disturbance, and anxiety; I10 Essential (primary) hypertension; I25.2 Old myocardial infarction; F17.200 Nicotine dependence, unspecified, uncomplicated
CPT/HCPCS: 51701; 70450; 70496; 70498; 80053; 81003; 83690; 85025; 85610; 93005; 99284; 99285; Q9967; 36415; 81001; 87086

== ENCOUNTER 2018-02-09 10:36 | Outpatient (CLI) | payer MEDICARE, OTHER, MEDICAID | END 2018-02-09 10:37 | disposition critical access hospital (66) | LOC: EMS 10:36 | PROVIDERS: ATTEND Surgery | DX: R03.1 Nonspecific low blood-pressure reading (principal); R19.7 Diarrhea, unspecified; R52 Pain, unspecified | CPT/HCPCS: A0425; A0427 ==

== ENCOUNTER 2018-02-09 10:45 | Emergency (ER) | payer MEDICARE, OTHER, MEDICAID ==
--- NOTE | 2018-02-09 11:27 | ED Physician Documentation ---
History of Present Illness - Stated complaint Stated Complaint: DIARRHEA - Chief complaint Chief Complaint: Abd Pain - History obtained from History obtained from: Patient, EMS - History of Present Illness Timing: Yesterday Pain level max: 0 Pain level now: 0 Improved by: nothing Worsened by: nothing - Additonal information Additional information: 77 year old female, lives at [facility]. States had diarrhea last night 5-7 times. Tmax 101 last night. Today staff thought she was more confused than usual today. EMS states SBP was 70 today at breakfast. no diarrhea today. Review of Systems Unable to obtain: Dementia Constitutional: reports: Fever. 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 : None HEENT: None Psych: None Musculoskeletal: None Derm: None - Past Surgical History Past Surgical History: Yes Cardiovascular: Coronary stent HEENT: Tonsil/Adenoidectomy - Present Medications Home Medications: Ambulatory Orders Medication Instructions Recorded Confirmed Oxybutynin [Ditropan] 5 mg PO BID 02/19/13 01/14/18 Valsartan [Diovan] 40 mg PO DAILY 02/19/13 01/14/18 Acetaminophen [Tylenol] 650 mg PO BID 01/14/18 01/14/18 Aspirin Chewable [[place] 81 mg PO DAILY 01/14/18 01/14/18 Aspirin] Chlorthalidone 25 mg PO DAILY 01/14/18 01/14/18 Hydrocodone/Acetaminophen 1 each PO Q3H PRN 01/14/18 01/14/18 [Hydrocodone-Acetamin 5-325 mg] Levothyroxine Sodium [Synthroid] 50 mcg PO MOTUWETHFRSA 01/14/18 01/14/18 Levothyroxine Sodium [Synthroid] 100 mcg PO MATTHEWS 01/14/18 01/14/18 Metoprolol Succinate [Toprol Xl] 25 mg PO DAILY 01/14/18 01/14/18 QUEtiapine [SEROquel] 75 mg PO DAILY 01/14/18 01/14/18 QUEtiapine [SEROquel] 100 mg PO QPM 01/14/18 01/14/18 Saccharomyces Boulardii [Florastor] 250 mg PO BID 01/14/18 01/14/18 traMADol [Ultram] 25 mg PO BID 01/14/18 01/14/18 Cephalexin [Keflex] 500 mg PO Q6H #28 capsule 02/09/18 - Allergies Allergies/Adverse Reactions: Allergies Allergy/AdvReac Type Severity Reaction Status Date / Time lisinopril Allergy Intermediate Edema Verified 04/07/13 10:19 egg AdvReac Severe Anaphylaxis Verified 02/09/18 10:57 flu vaccine Allergy Mild Anaphylaxis Uncoded 02/09/18 10:59 - Social History Does the pt smoke?: Yes Smoking Status: Current every day smoker Does the pt drink ETOH?: Yes Does the pt have substance abuse?: No - Immunizations Immunizations are current?: Yes - POLST Patient has POLST: No PD ED PE NORMAL - Vitals Vital signs reviewed: Yes - General General: Alert and oriented X 3, No acute distress - HEENT HEENT: Moist mucous membranes - Neck Neck: Supple, no meningeal sign - Cardiac Cardiac: RRR, Strong equal pulses - Respiratory Respiratory: No respiratory distress, Clear bilaterally - Abdomen Abdomen: Soft, Non tender, Non distended - Derm Derm: Warm and dry - Neuro Neuro: Other (alert, oriented x 4) Results - Vitals Vitals: Vital Signs - 24 hr 02/09/18 02/09/18 02/09/18 10:51 12:30 13:28 Temperature 36.9 C Heart Rate 74 69 67 Respiratory 15 15 16 Rate Blood Pressure 120/100 H 103/79 126/74 O2 Saturation 95 95 95 Oxygen O2 Source Room air - EKG (time done) 1141 Rate: Rate (enter#) (69) Rhythm: NSR [place]: Anterior hemiblock (LAFB) Intervals: Normal [place] QRS: LVH Ischemia: Normal ST segments - Labs Labs: Laboratory Tests 02/09/18 02/09/18 02/09/18 11:34 11:34 11:34 WBC 7.5 RBC 4.10 L Hgb 12.5 Hct 37.6 MCV 91.7 MCH 30.6 MCHC 33.4 RDW 13.1 Plt Count 157 MPV 7.9 Neut # 4.3 Lymph # 2.1 [place] # 0.6 Eos # 0.4 Baso # 0.1 Absolute Nucleated RBC 0.00 Nucleated RBC % 0.0 Sodium 135 Potassium 3.5 Chloride 103 Carbon Dioxide 24 Anion Gap 8.0 BUN 29 H Creatinine 1.4 H Estimated GFR (MDRD) 36 L Glucose 95 Calcium 9.0 Total Bilirubin 0.8 AST 20 ALT 14 Alkaline Phosphatase 98 Troponin I < 0.04 Total Protein 6.6 L Albumin 3.4 Globulin 3.2 Albumin/Globulin Ratio 1.1 Lipase 25 Urine Color Urine Clarity Urine pH Ur Specific [place] Urine Protein Urine Glucose (UA) Urine Ketones Urine Occult Blood Urine Nitrite Urine Bilirubin Urine Urobilinogen Ur Leukocyte Esterase Urine RBC Urine WBC Urine WBC Clumps Ur Squamous Epith Cells Urine Bacteria Ur Microscopic Review Urine Culture Comments 02/09/18 12:00 WBC RBC Hgb Hct MCV MCH MCHC RDW Plt Count MPV Neut # Lymph # [place] # Eos # Baso # Absolute Nucleated RBC Nucleated RBC % Sodium Potassium Chloride Carbon Dioxide Anion Gap BUN Creatinine Estimated GFR (MDRD) Glucose Calcium Total Bilirubin AST ALT Alkaline Phosphatase Troponin I Total Protein Albumin Globulin Albumin/Globulin Ratio Lipase Urine Color YELLOW Urine Clarity CLEAR Urine pH 6.0 Ur Specific [place] 1.015 Urine Protein NEGATIVE Urine Glucose (UA) NEGATIVE Urine Ketones NEGATIVE Urine Occult Blood NEGATIVE Urine Nitrite NEGATIVE Urine Bilirubin NEGATIVE Urine Urobilinogen 0.2 (NORMAL) Ur Leukocyte Esterase SMALL H Urine RBC 0-5 Urine WBC >25 H Urine WBC Clumps PRESENT Ur Squamous Epith Cells RARE Squamous Urine Bacteria Few Ur Microscopic Review INDICATED Urine Culture Comments INDICATED - Rads (name of study) cxr Radiology: Prelim report reviewed, EMP read contemporaneously, See rad report ( Right hemidiaphragm elevation has developed since prior chest x-ray 10/15/2015. No consolidation) PD MEDICAL DECISION MAKING - ED course Complexity details: reviewed results, re-evaluated patient, considered differential, d/w patient, d/w family ED course: Patient is a 77-year-old female who had diarrhea last night. None today. She appears to have a UTI and this may explain her earlier altered mental status. No other acute laboratory abnormalities. She is very well-appearing, nontoxic. Afebrile here. Tolerating p.o. without difficulty. Will have her follow-up with her doctor for further care. Appears to be at her mental baseline currently. Patient counseled regarding signs and symptoms for which I believe and urgent re-evaluation would be necessary. Patient with good understanding of and agreement to plan and is comfortable going home at this time This document was made in part using voice recognition software. While efforts are made to proofread this document, sound alike and grammatical errors may occur. Departure - Departure Disposition: Home, Self Care Clinical Impression: UTI (urinary tract infection) Qualifiers: Urinary tract infection type: acute cystitis Hematuria presence: without hematuria Qualified Code(s): N30.00 - Acute cystitis without hematuria Condition: Good Instructions: ED UTI Cystitis Female Follow-Up: Roberto Odom, [Credentialed Staff Provider] - Within 3 Days Prescriptions: Cephalexin [Keflex] 500 mg PO Q6H #28 capsule Comments: Take all antibiotics until gone. Return if Randa worsens. Discharge Date/Time: 02/09/18 13:58
[2018-02-09] MEDS ORDERED: SODIUM CHLORIDE 0.9% 1,000 ML IV ONE (11:28)
[2018-02-09 11:54] LABS: BASOPHILS # (AUTO) 0.1 10^3/uL (0.0-0.1); BASOPHILS % (AUTO) 1.2 %; EOSINOPHILS # (AUTO) 0.4 10^3/uL (0.0-0.7); EOSINOPHILS % (AUTO) 5.7 %; HGB - HEMOGLOBIN 12.5 g/dL (12.0-16.0); LYMPHOCYTES # (AUTO) 2.1 10^3/uL (1.5-3.5); LYMPHOCYTES % (AUTO) 28.1 %; MEAN CORPUSCULAR HEMOGLOBIN 30.6 pg (27.0-31.0); MEAN CORPUSCULAR HGB CONC 33.4 g/dL (32.0-36.0); MEAN CORPUSCULAR VOLUME 91.7 fL (81.0-99.0); MEAN PLATELET VOLUME 7.9 fL (7.9-10.8); MONOCYTES # (AUTO) 0.6 10^3/uL (0.0-1.0); MONOCYTES % (AUTO) 8.3 %; NEUTROPHILS # (AUTO) 4.3 10^3/uL (1.5-6.6); NEUTROPHILS % (AUTO) 56.7 %; PLT - PLATELET COUNT 157 10^3/uL (130-450); RED CELL DISTRIBUTION WIDTH 13.1 % (12.0-15.0); WHITE BLOOD COUNT 7.5 x10^3/uL (4.8-10.8)
[2018-02-09 12:11] LABS: ALBUMIN 3.4 g/dL (3.2-5.5); ALBUMIN/GLOBULIN RATIO 1.1 (1.0-2.2); BILIRUBIN,TOTAL 0.8 mg/dL (0.2-1.0); CREATININE 1.4 mg/dL (0.4-1.0); TOTAL PROTEIN 6.6 g/dL (6.7-8.2)
[2018-02-09 12:15] LABS: BILIRUBIN,URINE NEGATIVE (NEGATIVE); GLUCOSE, URINE (UA) NEGATIVE (NEGATIVE); KETONES,URINE (UA) NEGATIVE (NEGATIVE); LEUKOCYTE ESTERASE, URINE SMALL (NEGATIVE); NITRITE,URINE NEGATIVE (NEGATIVE); OCCULT BLOOD,URINE NEGATIVE (NEGATIVE); PROTEIN,URINE NEGATIVE (NEGATIVE); UROBILINOGEN,URINE 0.2 (NORMAL) E.U./dL (NORMAL)
[2018-02-09 12:16] LABS: CLARITY,URINE CLEAR (CLEAR)
--- NOTE | 2018-02-09 12:23 | XRAY Report ---
EXAM: CHEST RADIOGRAPHY EXAM DATE: 02/09/2018 11:53 AM. CLINICAL HISTORY: Chest pain. COMPARISON: Chest x-ray 10/15/2015. TECHNIQUE: 1 view. FINDINGS: Lungs/Pleura: No focal opacities evident. No pleural effusion. No pneumothorax. Mediastinum: Tortuous and potentially ectatic thoracic aorta with atherosclerotic calcifications. Other: Right hemidiaphragm elevation with hepatic flexure of colon noted beneath hemidiaphragm. Mild thoracic scoliosis. IMPRESSION: 1. Right hemidiaphragm elevation has developed since prior chest x-ray 10/15/2015. 2. No consolidation demonstrated. [facility] Referring Provider Line: [phone] SITE ID: [id number]
[2018-02-09 12:37] LABS: BACTERIA,URINE Few /HPF (None Seen); RBC,URINE 0-5 /HPF (0-5); SQUAMOUS EPITHELIAL CELL,UR RARE Squamous (<= Few); WBC CLUMPS,URINE PRESENT
[2018-02-09] MEDS ORDERED: cefTRIAXone 1 GM VIAL IVP STA (12:43)
[2018-02-09 13:29] VITALS: BP 126/74
== END 2018-02-09 13:58 | disposition home or self-care (01) ==
LOC: EDUNIT# → ED 10:45
DX: N30.00 Acute cystitis without hematuria (principal); I44.4 Left anterior fascicular block; I10 Essential (primary) hypertension; I25.2 Old myocardial infarction; F17.200 Nicotine dependence, unspecified, uncomplicated; Z86.711 Personal history of pulmonary embolism; Z95.5 Presence of coronary angioplasty implant and graft; Z79.82 Long term (current) use of aspirin
CPT/HCPCS: 36415; 71045; 80053; 81001; 81003; 83690; 84484; 85025; 87086; 93005; 96361; 96374; 99284

== ENCOUNTER 2018-05-10 18:30 | Outpatient (CLI) | payer MEDICARE, OTHER, MEDICAID ==
[2018-05-10 19:33] LABS: CALCIUM 9.4 mg/dL (8.5-10.3); CREATININE 1.1 mg/dL (0.4-1.0)
[2018-05-10 19:54] LABS: THYROID STIMULATING HORMONE 1.64 uIU/mL (0.34-5.60)
[2018-05-10 19:56] LABS: FREE T4 (FREE THYROXINE) 0.85 ng/dL (0.58-1.64)
== END 2018-05-10 18:31 | disposition home or self-care (01) ==
LOC: LAB.R 18:30
DX: N18.2 Chronic kidney disease, stage 2 (mild) (principal); E03.9 Hypothyroidism, unspecified; E11.65 Type 2 diabetes mellitus with hyperglycemia
CPT/HCPCS: 80048; 83036; 84439; 84443

== ENCOUNTER 2018-07-31 12:30 | Outpatient (CLI) | payer MEDICARE, OTHER, MEDICAID ==
[2018-07-31 15:05] LABS: BILIRUBIN,URINE NEGATIVE (NEGATIVE); GLUCOSE, URINE (UA) NEGATIVE (NEGATIVE); KETONES,URINE (UA) NEGATIVE (NEGATIVE); LEUKOCYTE ESTERASE, URINE TRACE (NEGATIVE); NITRITE,URINE NEGATIVE (NEGATIVE); OCCULT BLOOD,URINE NEGATIVE (NEGATIVE); PH,URINE 6.5 PH (5.0-7.5); PROTEIN,URINE NEGATIVE (NEGATIVE); UROBILINOGEN,URINE 0.2 (NORMAL) E.U./dL (NORMAL)
[2018-07-31 15:06] LABS: CLARITY,URINE CLEAR (CLEAR)
[2018-07-31 16:09] LABS: BACTERIA,URINE None Seen /HPF (None Seen); RBC,URINE 0-5 /HPF (0-5); SQUAMOUS EPITHELIAL CELL,UR MOD Squamous (<= Few)
== END 2018-07-31 12:31 ==
LOC: LAB.R 12:30
DX: R30.0 Dysuria (principal)
CPT/HCPCS: 81001; 81003; 87086

== ENCOUNTER 2018-08-26 05:25 | Emergency (ER) | payer MEDICARE, OTHER, MEDICAID ==
[2018-08-26 05:48] LABS: BASOPHILS % (AUTO) 0.8 %; EOSINOPHILS # (AUTO) 0.2 10^3/uL (0.0-0.7); EOSINOPHILS % (AUTO) 3.4 %; HGB - HEMOGLOBIN 13.1 g/dL (12.0-16.0); LYMPHOCYTES % (AUTO) 38.6 %; MEAN CORPUSCULAR HEMOGLOBIN 30.9 pg (27.0-31.0); MEAN CORPUSCULAR HGB CONC 33.1 g/dL (32.0-36.0); MEAN CORPUSCULAR VOLUME 93.2 fL (81.0-99.0); MEAN PLATELET VOLUME 7.3 fL (7.9-10.8); MONOCYTES # (AUTO) 0.5 10^3/uL (0.0-1.0); MONOCYTES % (AUTO) 9.3 %; NEUTROPHILS # (AUTO) 2.4 10^3/uL (1.5-6.6); NEUTROPHILS % (AUTO) 47.9 %; PLT - PLATELET COUNT 176 10^3/uL (130-450); RED BLOOD COUNT 4.25 10^6/uL (4.20-5.40); RED CELL DISTRIBUTION WIDTH 12.9 % (12.0-15.0); WHITE BLOOD COUNT 5.1 x10^3/uL (4.8-10.8)
[2018-08-26 05:53] LABS: INR 1.1 (0.8-1.2); PT - PROTHROMBIN TIME 12.1 secs (9.9-12.6)
--- NOTE | 2018-08-26 05:56 | ED Physician Documentation ---
PD HPI ALTERED MENTAL STATUS - Stated complaint Stated Complaint: AMS - Chief complaint Chief Complaint: Neuro - History obtained from History obtained from: Patient, EMS - History of Present Illness Timing - onset: Enter time (0500), Today Timing - duration: Minutes Timing - details: Abrupt onset, Still present Quality / character: Less responsive, Confused Associated symptoms: No: Fever, Headache, Stiff neck Contributing factors: No: Anticoagulated Basline status: Ambulatory, Independent, Confused Similar symptoms before: Diagnosis (CVA) Recently seen: Not recently seen - Additional information Additional information: 78-year-old female with history of atrial fibrillation dementia pulmonary embolism and TIA CVA who is not anticoagulated went to the nurses station today and although she walked up there she became unresponsive and medics were called to the scene. The patient has become responsive in route to the hospital and medics noted a left facial droop which the indicated was worse than her usual. They were not able to elicit definite lateralizing weakness as the patient was unable to cooperate with examination. Review of Systems Unable to obtain: Dementia Constitutional: denies: Fever Eyes: denies: Decreased vision Ears: denies: Ear pain Nose: denies: Congestion Throat: denies: Sore throat Cardiac: denies: Chest pain / pressure Respiratory: denies: Dyspnea, Cough GI: denies: Abdominal Pain, Nausea, Vomiting : denies: Dysuria, Frequency Skin: denies: Rash Musculoskeletal: denies: Neck pain, Back pain, Extremity pain Neurologic: reports: Altered mental status. 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 : None HEENT: None Psych: None Musculoskeletal: None Derm: None - Past Surgical History Past Surgical History: Yes Cardiovascular: Coronary stent HEENT: Tonsil/Adenoidectomy - Present Medications Home Medications: Ambulatory Orders Medication Instructions Recorded Confirmed Oxybutynin [Ditropan] 5 mg PO BID 02/19/13 01/14/18 Valsartan [Diovan] 40 mg PO DAILY 02/19/13 01/14/18 Acetaminophen [Tylenol] 650 mg PO BID 01/14/18 01/14/18 Aspirin Chewable [[place] 81 mg PO DAILY 01/14/18 01/14/18 Aspirin] Chlorthalidone 25 mg PO DAILY 01/14/18 01/14/18 Hydrocodone/Acetaminophen 1 each PO Q3H PRN 01/14/18 01/14/18 [Hydrocodone-Acetamin 5-325 mg] Levothyroxine Sodium [Synthroid] 50 mcg PO MOTUWETHFRSA 01/14/18 01/14/18 Levothyroxine Sodium [Synthroid] 100 mcg PO MATTHEWS 01/14/18 01/14/18 Metoprolol Succinate [Toprol Xl] 25 mg PO DAILY 01/14/18 01/14/18 QUEtiapine [SEROquel] 75 mg PO DAILY 01/14/18 01/14/18 QUEtiapine [SEROquel] 100 mg PO QPM 01/14/18 01/14/18 Saccharomyces Boulardii [Florastor] 250 mg PO BID 01/14/18 01/14/18 traMADol [Ultram] 25 mg PO BID 01/14/18 01/14/18 Cephalexin [Keflex] 500 mg PO Q6H #28 capsule 02/09/18 - Allergies Allergies/Adverse Reactions: Allergies Allergy/AdvReac Type Severity Reaction Status Date / Time lisinopril Allergy Intermediate Edema Verified 08/26/18 05:34 egg AdvReac Severe Anaphylaxis Verified 08/26/18 05:34 flu vaccine Allergy Mild Anaphylaxis Uncoded 08/26/18 05:34 - Social History Does the pt smoke?: Yes Smoking Status: Current every day smoker Does the pt drink ETOH?: Yes Does the pt have substance abuse?: No - Immunizations Immunizations are current?: Yes - POLST Patient has POLST: No PD ED PE NORMAL - Vitals Vital signs reviewed: Yes (hypertensive ) - General General: No acute distress, Well developed/nourished, Other (oriented to hospital and year ) - HEENT HEENT: Atraumatic, PERRL, EOMI, Other (left facial droop is mild ) - Neck Neck: Supple, no meningeal sign, No bony TTP - Cardiac Cardiac: No murmur, Other (irregularly irregular ) - Respiratory Respiratory: No respiratory distress, Other (diminished breath sounds ) - Abdomen Abdomen: Soft, Non tender - Back Back: No CVA TTP, No spinal TTP - Derm Derm: Normal color, Warm and dry, No rash - Extremities Extremities: No deformity, Other (There is mild bilateral edema with venous stasis disease) - Neuro 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, No motor deficit, No sensory deficit, Other (mildly dysarthric speech) Eye Opening: Spontaneous Motor: Obeys Commands Verbal: Confused GCS Score: 14 - Psych Psych: Normal mood, Normal affect Results - Vitals Vitals: Vital Signs - 24 hr 08/26/18 08/26/18 08/26/18 05:25 06:03 06:24 Temperature 36.2 C L Heart Rate 72 68 66 Respiratory 18 Rate Blood Pressure 154/92 H 136/94 H 136/94 H O2 Saturation 100 100 97 08/26/18 07:32 Temperature Heart Rate 49 L Respiratory 21 Rate Blood Pressure 111/71 O2 Saturation 96 Oxygen O2 Source Room air - EKG (time done) 0559 Rate: Rate (enter#) (69) Rhythm: NSR [place]: LAD Intervals: Wide QRS QRS: LVH Compare to prior EKG: Unchanged from prior EKG (02-09-18) Computer interpretation: Agree with computer - Labs Labs: Laboratory Tests 08/26/18 08/26/18 08/26/18 05:40 05:40 05:40 WBC 5.1 RBC 4.25 Hgb 13.1 Hct 39.6 MCV 93.2 MCH 30.9 MCHC 33.1 RDW 12.9 Plt Count 176 MPV 7.3 L Neut # (Auto) 2.4 Lymph # (Auto) 2.0 [place] # (Auto) 0.5 Eos # (Auto) 0.2 Baso # (Auto) 0.0 Absolute Nucleated RBC 0.00 Nucleated RBC % 0.0 PT 12.1 INR 1.1 Sodium 132 L Potassium 4.0 Chloride 98 L Carbon Dioxide 25 Anion Gap 9.0 BUN 29 H Creatinine 1.3 H Estimated GFR (MDRD) 39 L Glucose 98 Calcium 9.7 Total Bilirubin 0.9 AST 25 ALT 17 Alkaline Phosphatase 83 Troponin I Total Protein 7.1 Albumin 3.9 Globulin 3.2 Albumin/Globulin Ratio 1.2 Lipase 27 Urine Color Urine Clarity Urine pH Ur Specific [place] Urine Protein Urine Glucose (UA) Urine Ketones Urine Occult Blood Urine Nitrite Urine Bilirubin Urine Urobilinogen Ur Leukocyte Esterase Ur Microscopic Review Urine Culture Comments 08/26/18 08/26/18 05:40 06:15 WBC RBC Hgb Hct MCV MCH MCHC RDW Plt Count MPV Neut # (Auto) Lymph # (Auto) [place] # (Auto) Eos # (Auto) Baso # (Auto) Absolute Nucleated RBC Nucleated RBC % PT INR Sodium Potassium Chloride Carbon Dioxide Anion Gap BUN Creatinine Estimated GFR (MDRD) Glucose Calcium Total Bilirubin AST ALT Alkaline Phosphatase Troponin I < 0.04 Total Protein Albumin Globulin Albumin/Globulin Ratio Lipase Urine Color YELLOW Urine Clarity CLEAR Urine pH 6.5 Ur Specific [place] 1.010 Urine Protein NEGATIVE Urine Glucose (UA) NEGATIVE Urine Ketones NEGATIVE Urine Occult Blood NEGATIVE Urine Nitrite NEGATIVE Urine Bilirubin NEGATIVE Urine Urobilinogen 0.2 (NORMAL) Ur Leukocyte Esterase NEGATIVE Ur Microscopic Review NOT INDICATED Urine Culture Comments NOT INDICATED - Rads (name of study) CT head without Radiology: Prelim report reviewed (Impression: 1. No acute evidence of acute intracranial process. 2. Moderate microvascular white matter disease.), EMP read indepedently, See rad report PD MEDICAL DECISION MAKING - ED course Complexity details: reviewed old records, reviewed results, re-evaluated patient, considered differential, d/w patient ED course: 78 y/o female with a history of CVA/TIA afib and CHF has had an event this morning with acute altered LOC. She presents to the ED appearing to be withdrawn and not conversant. She has improvement shortly after arrival to the ED and she has no lateralizing signs. Her CT is unchanged from earlier in the year. She has resolution of her symptoms and the episode is consistent with a TIA. She has refused inpatient treatment earlier in the year and today she is not refusing treatment. She is willing to stay in the hospital today but I am not convinced this is necessary. She does not walk and this morning she took her medications and became unresponsive for a brief time. She appears back to baseline and we have not found an obvious underlying cause. Departure - Departure Disposition: 01 Home, Self Care Clinical Impression: Altered mental status Qualifiers: Altered mental status type: transient alteration of awareness Qualified Code(s): R40.4 - Transient alteration of awareness Condition: Stable Instructions: ED Altered Loc Follow-Up: Roberto Odom, [Primary Care Provider] -
[2018-08-26 06:00] LABS: ALBUMIN 3.9 g/dL (3.2-5.5); ALBUMIN/GLOBULIN RATIO 1.2 (1.0-2.2); BILIRUBIN,TOTAL 0.9 mg/dL (0.2-1.0); CALCIUM 9.7 mg/dL (8.5-10.3); CREATININE 1.3 mg/dL (0.4-1.0); TOTAL PROTEIN 7.1 g/dL (6.7-8.2)
--- NOTE | 2018-08-26 06:05 | CT Report ---
Reason: altered LOC Procedure Date: 08/26/2018 Accession Number: [id number] / [id number] Procedure: CT - Head W/O Stroke Protocol CPT Code: FULL RESULT: EXAM: CT HEAD EXAM DATE: 08/26/2018 05:56 AM. CLINICAL HISTORY: Left-sided weakness COMPARISON: Head CT 01/14/2018. TECHNIQUE: Multiaxial CT images were obtained from the foramen magnum to the vertex. Reformats: Sagittal and coronal. IV contrast: None. In accordance with CT protocol optimization, one or more of the following dose reduction techniques were utilized for this exam: automated exposure control, adjustment of mA and/or KV based on patient size, or use of iterative reconstructive technique. FINDINGS: Parenchyma: No intraparenchymal hemorrhage. No evidence of mass, midline shift, or CT findings of acute infarction. There are patchy areas of low density involving white matter bilateral cerebral hemispheres. There are areas of low density in bilateral basal ganglia regions. Right MCA ASPECT score equals 9. Extraaxial Spaces: No subdural or epidural collections identified. Ventricles: There is moderate dilatation of lateral ventricles. No mass-effect. No midline shift. Sinuses and Orbits: Imaged paranasal sinuses, orbits, and mastoids show no significant abnormality. Bones: No evidence of fracture or calvarial defect. Other: None. IMPRESSION: 1. No CT evidence of acute intracranial process. 2. Moderate microvascular white matter disease. [facility] The call report notification system was initiated by Dr. Juan Bonilla at 06:02 hrs on 08/26/18. The above findings were discussed with Dr. Perrin by Dr. Juan Bonilla at 06:03 hrs on 08/26/18.
[2018-08-26 06:21] LABS: BILIRUBIN,URINE NEGATIVE (NEGATIVE); GLUCOSE, URINE (UA) NEGATIVE (NEGATIVE); KETONES,URINE (UA) NEGATIVE (NEGATIVE); LEUKOCYTE ESTERASE, URINE NEGATIVE (NEGATIVE); NITRITE,URINE NEGATIVE (NEGATIVE); OCCULT BLOOD,URINE NEGATIVE (NEGATIVE); PH,URINE 6.5 PH (5.0-7.5); PROTEIN,URINE NEGATIVE (NEGATIVE); UROBILINOGEN,URINE 0.2 (NORMAL) E.U./dL (NORMAL)
[2018-08-26 06:24] LABS: CLARITY,URINE CLEAR (CLEAR)
--- NOTE | 2018-08-26 06:33 | XRAY Report ---
Reason: chest pain Procedure Date: 08/26/2018 Accession Number: [id number] / [id number] Procedure: XR - Chest 1 View X-Ray CPT Code: 03737 FULL RESULT: EXAM: CHEST RADIOGRAPHY EXAM DATE: 08/26/2018 06:21 AM. CLINICAL HISTORY: Chest pain. COMPARISON: CHEST 1 VIEW 02/09/2018 11:41 AM. TECHNIQUE: 1 view. FINDINGS: Lungs/Pleura: No focal opacities evident. No pleural effusion. No pneumothorax. Mediastinum: Myocardial megaly. Stable mildly tortuous and calcified thoracic aorta. Other: Stable right hemidiaphragm elevation. IMPRESSION: Mild cardiomegaly without acute process seen in the chest. [facility]
[2018-08-26 07:39] VITALS: BP 111/71
== END 2018-08-26 09:01 | disposition home or self-care (01) ==
LOC: EDUNIT# → ED 05:25
DX: R40.4 Transient alteration of awareness (principal); I10 Essential (primary) hypertension; I48.91 Unspecified atrial fibrillation; F17.200 Nicotine dependence, unspecified, uncomplicated; I51.7 Cardiomegaly; R60.0 Localized edema; I87.8 Other specified disorders of veins; Z79.82 Long term (current) use of aspirin; Z86.73 Personal history of transient ischemic attack (TIA), and cerebral infarction without residual deficits
CPT/HCPCS: 36415; 70450; 71045; 80053; 81001; 81003; 83690; 84484; 85025; 85610; 87086; 93005; 99284; 99285

== ENCOUNTER 2018-12-16 08:00 | Outpatient (CLI) | payer MEDICARE, OTHER, MEDICAID ==
[2018-12-16 16:45] LABS: ALBUMIN 3.7 g/dL (3.2-5.5); ALBUMIN/GLOBULIN RATIO 1.5 (1.0-2.2); BILIRUBIN,TOTAL 0.8 mg/dL (0.2-1.0); CALCIUM 9.3 mg/dL (8.5-10.3); CREATININE 1.2 mg/dL (0.4-1.0); TOTAL PROTEIN 6.2 g/dL (6.7-8.2)
== END 2018-12-16 23:59 | disposition home or self-care (01) ==
LOC: LAB.R 08:00
DX: I10 Essential (primary) hypertension (principal)
CPT/HCPCS: 80053

== ENCOUNTER 2019-02-07 08:00 | Outpatient (CLI) | payer MEDICARE, OTHER, MEDICAID ==
[2019-02-07 19:16] LABS: BASOPHILS # (AUTO) 0.1 10^3/uL (0.0-0.1); BASOPHILS % (AUTO) 0.7 %; EOSINOPHILS # (AUTO) 0.5 10^3/uL (0.0-0.7); EOSINOPHILS % (AUTO) 6.5 %; HGB - HEMOGLOBIN 12.8 g/dL (12.0-16.0); LYMPHOCYTES # (AUTO) 2.2 10^3/uL (1.5-3.5); LYMPHOCYTES % (AUTO) 29.2 %; MEAN CORPUSCULAR HEMOGLOBIN 30.3 pg (27.0-31.0); MEAN CORPUSCULAR HGB CONC 32.7 g/dL (32.0-36.0); MEAN CORPUSCULAR VOLUME 92.4 fL (81.0-99.0); MEAN PLATELET VOLUME 8.5 fL (7.9-10.8); MONOCYTES # (AUTO) 0.4 10^3/uL (0.0-1.0); MONOCYTES % (AUTO) 5.5 %; NEUTROPHILS # (AUTO) 4.4 10^3/uL (1.5-6.6); NEUTROPHILS % (AUTO) 58.1 %; PLT - PLATELET COUNT 173 10^3/uL (130-450); RED BLOOD COUNT 4.24 10^6/uL (4.20-5.40); RED CELL DISTRIBUTION WIDTH 12.3 % (12.0-15.0); WHITE BLOOD COUNT 7.6 x10^3/uL (4.8-10.8)
[2019-02-07 19:18] LABS: CALCIUM 9.1 mg/dL (8.5-10.3); CREATININE 1.2 mg/dL (0.4-1.0)
== END 2019-02-07 23:59 | disposition home or self-care (01) ==
LOC: LAB.R 08:00
DX: R41.82 Altered mental status, unspecified (principal)
CPT/HCPCS: 80048; 85025

== ENCOUNTER 2019-03-19 08:00 | Outpatient (CLI) | payer MEDICARE, OTHER, MEDICAID ==
[2019-03-19 12:14] LABS: BILIRUBIN,URINE NEGATIVE (NEGATIVE); GLUCOSE, URINE (UA) NEGATIVE (NEGATIVE); KETONES,URINE (UA) NEGATIVE (NEGATIVE); LEUKOCYTE ESTERASE, URINE NEGATIVE (NEGATIVE); NITRITE,URINE NEGATIVE (NEGATIVE); OCCULT BLOOD,URINE NEGATIVE (NEGATIVE); PH,URINE 6.5 PH (5.0-7.5); PROTEIN,URINE NEGATIVE (NEGATIVE); UROBILINOGEN,URINE 0.2 (NORMAL) E.U./dL (NORMAL)
[2019-03-19 12:15] LABS: CLARITY,URINE CLEAR (CLEAR)
== END 2019-03-19 08:01 | disposition home or self-care (01) ==
LOC: LAB.R 08:00
DX: R39.0 Extravasation of urine (principal)
CPT/HCPCS: 81001; 81003

== ENCOUNTER 2019-07-18 11:45 | Outpatient (CLI) | payer MEDICARE, MEDICAID ==
[2019-07-18 13:28] LABS: BILIRUBIN,URINE NEGATIVE (NEGATIVE); GLUCOSE, URINE (UA) NEGATIVE (NEGATIVE); KETONES,URINE (UA) NEGATIVE (NEGATIVE); LEUKOCYTE ESTERASE, URINE NEGATIVE (NEGATIVE); NITRITE,URINE NEGATIVE (NEGATIVE); OCCULT BLOOD,URINE NEGATIVE (NEGATIVE); PH,URINE 7.5 PH (5.0-7.5); PROTEIN,URINE NEGATIVE (NEGATIVE); UROBILINOGEN,URINE 0.2 (NORMAL) E.U./dL (NORMAL)
[2019-07-18 13:32] LABS: CLARITY,URINE CLEAR (CLEAR)
[2019-07-18 13:41] LABS: BACTERIA,URINE Rare /HPF (None Seen); RBC,URINE 0-5 /HPF (0-5); SQUAMOUS EPITHELIAL CELL,UR RARE Squamous (<= Few)
== END 2019-07-18 23:59 | disposition home or self-care (01) ==
LOC: LAB.R 11:45
DX: N39.0 Urinary tract infection, site not specified (principal)
CPT/HCPCS: 81001; 87086

== ENCOUNTER 2019-07-23 11:30 | Outpatient (CLI) | payer MEDICARE, MEDICAID ==
[2019-07-23 13:11] LABS: BASOPHILS # (AUTO) 0.1 10^3/uL (0.0-0.1); BASOPHILS % (AUTO) 0.7 %; EOSINOPHILS # (AUTO) 0.1 10^3/uL (0.0-0.7); EOSINOPHILS % (AUTO) 1.1 %; HGB - HEMOGLOBIN 13.8 g/dL (12.0-16.0); LYMPHOCYTES # (AUTO) 0.7 10^3/uL (1.5-3.5); LYMPHOCYTES % (AUTO) 7.9 %; MEAN CORPUSCULAR HEMOGLOBIN 30.9 pg (27.0-31.0); MEAN CORPUSCULAR HGB CONC 31.9 g/dL (32.0-36.0); MEAN CORPUSCULAR VOLUME 96.6 fL (81.0-99.0); MEAN PLATELET VOLUME 10.1 fL (7.9-10.8); MONOCYTES # (AUTO) 0.6 10^3/uL (0.0-1.0); MONOCYTES % (AUTO) 6.4 %; NEUTROPHILS # (AUTO) 7.5 10^3/uL (1.5-6.6); NEUTROPHILS % (AUTO) 83.3 %; PLT - PLATELET COUNT 161 10^3/uL (130-450); RED BLOOD COUNT 4.47 10^6/uL (4.20-5.40); RED CELL DISTRIBUTION WIDTH 12.3 % (12.0-15.0)
[2019-07-23 13:20] LABS: ALBUMIN 4.4 g/dL (3.2-5.5); ALBUMIN/GLOBULIN RATIO 1.2 (1.0-2.2); BILIRUBIN,TOTAL 0.7 mg/dL (0.2-1.0); CALCIUM 9.8 mg/dL (8.5-10.3); CREATININE 1.1 mg/dL (0.4-1.0); TOTAL PROTEIN 8.1 g/dL (6.7-8.2)
== END 2019-07-23 23:59 | disposition home or self-care (01) ==
LOC: LAB.R 11:30
DX: E11.9 Type 2 diabetes mellitus without complications (principal)
CPT/HCPCS: 80053; 85025

== ENCOUNTER 2019-08-13 13:33 | Outpatient (CLI) | payer MEDICARE, MEDICAID ==
--- NOTE | 2019-08-14 10:37 | XRAY Report ---
Reason: RT HILAR NODULAR OPACITY Procedure Date: 08/13/2019 Accession Number: [id number] / [id number] Procedure: XR - Chest 2 View X-Ray CPT Code: 09656 Final Report FULL RESULT: EXAM: CHEST RADIOGRAPHY EXAM DATE: 08/13/2019 02:27 PM. CLINICAL HISTORY: RT HILAR NODULAR OPACITY. COMPARISON: CHEST 1 VIEW 08/26/2018 6:08 AM CHEST 1 VIEW 02/09/2018 11:41 AM. TECHNIQUE: 2 views. FINDINGS: Lungs/Pleura: No focal opacities evident. No pleural effusion. No pneumothorax. Normal volumes. Mediastinum: Heart and mediastinal contours are unremarkable. Mild aortic calcification. Other: Mild left convex upper and right convex lower thoracic scoliosis. IMPRESSION: 1. Lungs are clear. 2. [place] are unremarkable. 3. None of the available prior studies reference a right hilar nodular opacity, so the area of concern is unknown. If there is persistent concern, CT chest with contrast could be used to further assess. [facility]
== END 2019-08-13 13:34 | disposition home or self-care (01) ==
LOC: DI 13:33
PROVIDERS: ATTEND Family Medicine
DX: R91.8 Other nonspecific abnormal finding of lung field (principal)
CPT/HCPCS: 71046

== ENCOUNTER 2019-09-02 08:00 | Outpatient (CLI) | payer MEDICARE, MEDICAID | END 2019-09-02 23:59 | disposition home or self-care (01) | LOC: LAB.R 08:00 | DX: E03.9 Hypothyroidism, unspecified (principal) | CPT/HCPCS: 84443 ==

== ENCOUNTER 2019-12-05 06:00 | Outpatient (CLI) | payer MEDICARE, MEDICAID ==
[2019-12-05 07:12] LABS: BILIRUBIN,URINE NEGATIVE (NEGATIVE); GLUCOSE, URINE (UA) NEGATIVE (NEGATIVE); KETONES,URINE (UA) NEGATIVE (NEGATIVE); LEUKOCYTE ESTERASE, URINE SMALL (NEGATIVE); NITRITE,URINE NEGATIVE (NEGATIVE); OCCULT BLOOD,URINE NEGATIVE (NEGATIVE); PH,URINE 6.5 PH (5.0-7.5); PROTEIN,URINE NEGATIVE (NEGATIVE); UROBILINOGEN,URINE 0.2 (NORMAL) E.U./dL (NORMAL)
[2019-12-05 07:14] LABS: CLARITY,URINE CLOUDY (CLEAR)
[2019-12-05 07:38] LABS: RBC,URINE 0-5 /HPF (0-5); SQUAMOUS EPITHELIAL CELL,UR MANY Squamous (<= Few)
[2019-12-05 07:39] LABS: BACTERIA,URINE Many /HPF (None Seen)
== END 2019-12-05 23:59 | disposition home or self-care (01) ==
LOC: LAB.R 06:00
DX: R30.0 Dysuria (principal)
CPT/HCPCS: 81001; 81003; 87086

== ENCOUNTER 2019-12-07 14:30 | Outpatient (CLI) | payer MEDICARE, MEDICAID ==
[2019-12-07 18:02] LABS: BILIRUBIN,URINE NEGATIVE (NEGATIVE); GLUCOSE, URINE (UA) NEGATIVE (NEGATIVE); KETONES,URINE (UA) NEGATIVE (NEGATIVE); LEUKOCYTE ESTERASE, URINE NEGATIVE (NEGATIVE); NITRITE,URINE POSITIVE (NEGATIVE); OCCULT BLOOD,URINE SMALL (NEGATIVE); PH,URINE 5.5 PH (5.0-7.5); PROTEIN,URINE TRACE mg/dL (NEGATIVE); UROBILINOGEN,URINE 1 (NORMAL) E.U./dL (NORMAL)
[2019-12-07 18:03] LABS: CLARITY,URINE CLEAR (CLEAR)
[2019-12-07 18:07] LABS: RBC,URINE 0-5 /HPF (0-5)
[2019-12-07 18:08] LABS: AMORPHOUS SEDIMENT,UR Moderate /LPF; BACTERIA,URINE Few /HPF (None Seen); SQUAMOUS EPITHELIAL CELL,UR MANY Squamous (<= Few)
== END 2019-12-07 23:59 | disposition home or self-care (01) ==
LOC: LAB.R 14:30
PROVIDERS: ATTEND Family Medicine
DX: Z87.440 Personal history of urinary (tract) infections (principal)
CPT/HCPCS: 81001; 81003; 87086

== ENCOUNTER 2019-12-10 12:21 | Outpatient (CLI) | payer MEDICARE, MEDICAID | END 2019-12-10 12:22 | disposition critical access hospital (66) | LOC: EMS 12:21 | PROVIDERS: ATTEND Surgery | DX: R06.00 Dyspnea, unspecified (principal) | CPT/HCPCS: A0425; A0429 ==

== ENCOUNTER 2019-12-10 12:26 | Inpatient (IN) | payer MEDICARE, MEDICAID ==
--- NOTE | 2019-12-10 12:45 | ED Physician Documentation ---
PD HPI DYSPNEA - Stated complaint Stated Complaint: SOA - Chief complaint Chief Complaint: Resp - History obtained from History obtained from: Patient, EMS, Other (PMD) - History of Present Illness Timing - onset: Today Timing - onset during: Rest Timing - duration: Hours Timing - details: Gradual onset, Still present Inciting event(s): URI Improved by: O2, Inhaler/neb Worsened by: Exertion, Coughing Associated symptoms: Cough. No: Wheezing, Chest pain / discomfort Similar symptoms before: Has not had sx before Recently seen: Not recently seen - Additional information Additional information: Report from [facility] medical transcription supervisor Ebenezer Odom DO: patient has become hypoxic was tachypneic at rest symptoms progressed rapidly despite no significant illness. More confused than usual. Has a history of schizophrenia. Review of Systems Unable to obtain: Confused PD PAST MEDICAL HISTORY - Past Medical History Cardiovascular: Hypertension, Pulmonary embolism, [place] Respiratory: Asthma Neuro: Dementia Endocrine/Autoimmune: None GI: None CLASS C DRIVER: None : None HEENT: None Psych: None Musculoskeletal: None Derm: None - Past Surgical History Past Surgical History: Yes Cardiovascular: Coronary stent HEENT: Tonsil/Adenoidectomy - Present Medications Home Medications: Ambulatory Orders Medication Instructions Recorded Confirmed Oxybutynin [Ditropan] 5 mg PO BID 02/19/13 01/14/18 Valsartan [Diovan] 40 mg PO DAILY 02/19/13 01/14/18 Acetaminophen [Tylenol] 650 mg PO BID 01/14/18 01/14/18 Aspirin Chewable [St Chucky 81 mg PO DAILY 01/14/18 01/14/18 Aspirin] Chlorthalidone 25 mg PO DAILY 01/14/18 01/14/18 Hydrocodone/Acetaminophen 1 each PO Q3H PRN 01/14/18 01/14/18 [Hydrocodone-Acetamin 5-325 mg] Levothyroxine Sodium [Synthroid] 50 mcg PO MOTUWETHFRSA 01/14/18 01/14/18 Levothyroxine Sodium [Synthroid] 100 mcg PO MATTHEWS 01/14/18 01/14/18 Metoprolol Succinate [Toprol Xl] 25 mg PO DAILY 01/14/18 01/14/18 QUEtiapine [SEROquel] 75 mg PO DAILY 01/14/18 01/14/18 QUEtiapine [SEROquel] 100 mg PO QPM 01/14/18 01/14/18 Saccharomyces Boulardii [Florastor] 250 mg PO BID 01/14/18 01/14/18 traMADol [Ultram] 25 mg PO BID 01/14/18 01/14/18 Cephalexin [Keflex] 500 mg PO Q6H #28 capsule 02/09/18 - Allergies Allergies/Adverse Reactions: Allergies Allergy/AdvReac Type Severity Reaction Status Date / Time lisinopril Allergy Intermediate Edema Verified 12/10/19 12:42 egg AdvReac Severe Anaphylaxis Verified 12/10/19 12:42 flu vaccine Allergy Mild Anaphylaxis Uncoded 12/10/19 12:42 - Social History Does the pt smoke?: Yes Smoking Status: Current every day smoker Does the pt drink ETOH?: Yes Does the pt have substance abuse?: No - Immunizations Immunizations are current?: Yes - POLST Patient has POLST: No PD ED PE NORMAL - Vitals Vital signs reviewed: Yes (normal ) - General General: No acute distress, Well developed/nourished - HEENT HEENT: Atraumatic, PERRL, EOMI, Ears normal, Other (dry mucous membranes ) - Neck Neck: Supple, no meningeal sign - Cardiac Cardiac: RRR, No murmur - Respiratory Respiratory: No respiratory distress, Clear bilaterally - Abdomen Abdomen: Soft, Non tender - Back Back: No CVA TTP, No spinal TTP - Derm Derm: Normal color, No rash - Extremities Extremities: No deformity, Other (trace edema bilat) - Neuro Neuro: No motor deficit, No sensory deficit, Normal speech Eye Opening: Spontaneous Motor: Obeys Commands Verbal: Confused GCS Score: 14 Results - Vitals Vitals: Vital Signs - 24 hr 12/10/19 12/10/19 12/10/19 12:38 13:35 14:47 Temperature 36.5 C Heart Rate 87 78 84 Respiratory 20 17 18 Rate Blood Pressure 123/75 130/82 H 119/50 L O2 Saturation 94 98 97 Oxygen O2 Source Nasal cannula - Labs Labs: Laboratory Tests 12/10/19 12/10/19 12/10/19 12:55 13:20 13:20 WBC 2.9 L RBC 4.01 L Hgb 12.6 Hct 39.1 MCV 97.5 MCH 31.4 H MCHC 32.2 RDW 12.4 Plt Count 162 MPV 9.3 Neut # (Auto) 1.6 Lymph # (Auto) 0.[address] # (Auto) 0.4 Eos # (Auto) 0.0 Baso # (Auto) 0.0 Absolute Nucleated RBC 0.00 Nucleated RBC % 0.0 Manual Slide Review Indicated RBC Morph Micro Appear 1+ ANISOCYTOSIS D-Dimer Sodium 138 Potassium 4.5 Chloride 104 Carbon Dioxide 24 Anion Gap 10.0 BUN 38 H Creatinine 1.4 H Estimated GFR (MDRD) 36 L Glucose 103 H Lactic Acid Calcium 9.1 Total Bilirubin 0.6 AST 53 H ALT 25 Alkaline Phosphatase 66 B-Natriuretic Peptide Total Protein 7.1 Albumin 3.5 Globulin 3.6 Albumin/Globulin Ratio 1.0 Lipase 47 Urine Color DARK YELLOW Urine Clarity CLEAR Urine pH 5.5 Ur Specific [place] 1.025 Urine Protein TRACE Urine Glucose (UA) NEGATIVE Urine Ketones NEGATIVE Urine Occult Blood NEGATIVE Urine Nitrite POSITIVE H Urine Bilirubin NEGATIVE Urine Urobilinogen 0.2 (NORMAL) Ur Leukocyte Esterase TRACE H Urine RBC 0-5 Urine WBC 11-25 H Ur Squamous Epith Cells FEW Squamous Urine Bacteria Many H Ur Microscopic Review INDICATED Urine Culture Comments INDICATED Influenza A (Rapid) Influenza B (Rapid) 12/10/19 12/10/19 12/10/19 13:20 13:20 13:20 WBC RBC Hgb Hct MCV MCH MCHC RDW Plt Count MPV Neut # (Auto) Lymph # (Auto) Lane # (Auto) Eos # (Auto) Baso # (Auto) Absolute Nucleated RBC Nucleated RBC % Manual Slide Review RBC Morph Micro Appear D-Dimer 374.9 H Sodium Potassium Chloride Carbon Dioxide Anion Gap BUN Creatinine Estimated GFR (MDRD) Glucose Lactic Acid 1.1 Calcium Total Bilirubin AST ALT Alkaline Phosphatase B-Natriuretic Peptide 39 Total Protein Albumin Globulin Albumin/Globulin Ratio Lipase Urine Color Urine Clarity Urine pH Ur Specific [place] Urine Protein Urine Glucose (UA) Urine Ketones Urine Occult Blood Urine Nitrite Urine Bilirubin Urine Urobilinogen Ur Leukocyte Esterase Urine RBC Urine WBC Ur Squamous Epith Cells Urine Bacteria Ur Microscopic Review Urine Culture Comments Influenza A (Rapid) Influenza B (Rapid) 12/10/19 13:20 WBC RBC Hgb Hct MCV MCH MCHC RDW Plt Count MPV Neut # (Auto) Lymph # (Auto) Lane # (Auto) Eos # (Auto) Baso # (Auto) Absolute Nucleated RBC Nucleated RBC % Manual Slide Review RBC Morph Micro Appear D-Dimer Sodium Potassium Chloride Carbon Dioxide Anion Gap BUN Creatinine Estimated GFR (MDRD) Glucose Lactic Acid Calcium Total Bilirubin AST ALT Alkaline Phosphatase B-Natriuretic Peptide Total Protein Albumin Globulin Albumin/Globulin Ratio Lipase Urine Color Urine Clarity Urine pH Ur Specific [place] Urine Protein Urine Glucose (UA) Urine Ketones Urine Occult Blood Urine Nitrite Urine Bilirubin Urine Urobilinogen Ur Leukocyte Esterase Urine RBC Urine WBC Ur Squamous Epith Cells Urine Bacteria Ur Microscopic Review Urine Culture Comments Influenza A (Rapid) Negative Influenza B (Rapid) Negative - Rads (name of study) chest Radiology: Prelim report reviewed (Impression: 1. Interval development of interstitial opacities in the lungs bilaterally. Differential diagnosis includes pulmonary edema and interstitial pneumonia. 2. No evidence of for pulmonary vascular congestion or pleural effusions. 3. Other stable chronic degenerative changes.), EMP read indepedently, See rad report PD MEDICAL DECISION MAKING - ED course Complexity details: reviewed old records, reviewed results, re-evaluated patient, considered differential, d/w patient ED course: 79 y/o schizophrenic female with a 2 day history of cough has become hypoxic today and is transferred to the ED for evaluation. Her illness has progressed r apidly she is developed hypoxia she has a marked atypical infiltrate on her chest x-ray and she does respond to bronchodilators. I have consulted our day hospitalist Dr. Mildred Hawk and she is concerned about COVID-19 as the patient does fit criteria with hypoxia atypical chest x-ray and lymphopenia. The patient has been in droplet precautions since arriving to the emergency department and all specimens were obtained with protective equipment. The patient is not much help for history and her chart indicates that she is a full code. She is admitted to the hospital with suspected viral pneumonia with hypoxia. Departure - Departure Disposition: [facility] DC/Xfer Clinical Impression: Atypical pneumonia UTI (urinary tract infection) Qualifiers: Urinary tract infection type: acute cystitis Hematuria presence: without hematu robert Qualified Code(s): N30.00 - Acute cystitis without hematuria Condition: Fair
--- NOTE | 2019-12-10 13:17 | XRAY Report ---
Reason: soa Procedure Date: 12/10/2019 Accession Number: [id number] / [id number] Procedure: XR - Chest 1 View X-Ray CPT Code: 34391 Final Report FULL RESULT: EXAM: CHEST RADIOGRAPHY EXAM DATE: 12/10/2019 01:00 PM. CLINICAL HISTORY: Shortness of breath. COMPARISON: CHEST 2 VIEW 08/13/2019 1:39 PM. TECHNIQUE: 1 view. FINDINGS: Lungs/Pleura: Symmetric low lung volumes. Interval development of interstitial opacities in the lungs bilaterally, with relative sparing of the right lung base. No pleural effusion or pneumothorax. Differential diagnosis includes pulmonary edema and interstitial pneumonia. Mediastinum: The cardiac silhouette size is normal. Tortuous thoracic aorta with arteriosclerosis. Other: Stable degenerative changes in the spine. IMPRESSION: 1. Interval development of interstitial opacities in the lungs bilaterally. Differential diagnosis includes pulmonary edema and interstitial pneumonia. 2. No evidence for pulmonary vascular congestion or pleural effusions. 3. Other stable chronic degenerative changes. RADIA
[2019-12-10 13:36] LABS: BASOPHILS % (AUTO) 0.3 %; EOSINOPHILS % (AUTO) 0.7 %; HGB - HEMOGLOBIN 12.6 g/dL (12.0-16.0); LYMPHOCYTES # (AUTO) 0.9 10^3/uL (1.5-3.5); LYMPHOCYTES % (AUTO) 29.4 %; MEAN CORPUSCULAR HEMOGLOBIN 31.4 pg (27.0-31.0); MEAN CORPUSCULAR HGB CONC 32.2 g/dL (32.0-36.0); MEAN CORPUSCULAR VOLUME 97.5 fL (81.0-99.0); MEAN PLATELET VOLUME 9.3 fL (7.9-10.8); MONOCYTES # (AUTO) 0.4 10^3/uL (0.0-1.0); MONOCYTES % (AUTO) 12.8 %; NEUTROPHILS # (AUTO) 1.6 10^3/uL (1.5-6.6); NEUTROPHILS % (AUTO) 55.8 %; PLT - PLATELET COUNT 162 10^3/uL (130-450); RED BLOOD COUNT 4.01 10^6/uL (4.20-5.40); RED CELL DISTRIBUTION WIDTH 12.4 % (12.0-15.0); WHITE BLOOD COUNT 2.9 x10^3/uL (4.8-10.8)
[2019-12-10 13:41] LABS: BILIRUBIN,URINE NEGATIVE (NEGATIVE); GLUCOSE, URINE (UA) NEGATIVE (NEGATIVE); KETONES,URINE (UA) NEGATIVE (NEGATIVE); LEUKOCYTE ESTERASE, URINE TRACE (NEGATIVE); NITRITE,URINE POSITIVE (NEGATIVE); OCCULT BLOOD,URINE NEGATIVE (NEGATIVE); PH,URINE 5.5 PH (5.0-7.5); PROTEIN,URINE TRACE mg/dL (NEGATIVE); UROBILINOGEN,URINE 0.2 (NORMAL) E.U./dL (NORMAL)
[2019-12-10 13:48] LABS: ALBUMIN 3.5 g/dL (3.2-5.5); BILIRUBIN,TOTAL 0.6 mg/dL (0.2-1.0); CALCIUM 9.1 mg/dL (8.5-10.3); CREATININE 1.4 mg/dL (0.4-1.0); TOTAL PROTEIN 7.1 g/dL (6.7-8.2)
[2019-12-10 13:53] LABS: CLARITY,URINE CLEAR (CLEAR)
[2019-12-10 13:53] LABS: RBC MORPHOLOGY (MULTIPLE) 1+ ANISOCYTOSIS (NORMAL)
[2019-12-10 14:05] LABS: BACTERIA,URINE Many /HPF (None Seen); RBC,URINE 0-5 /HPF (0-5); SQUAMOUS EPITHELIAL CELL,UR FEW Squamous (<= Few)
[2019-12-10] MEDS ORDERED: ALBUTEROL NEB 2.5 MG/3 ML INH STA (15:10)
[2019-12-10] MEDS ORDERED: cefTRIAXone 1 GM in SODIUM CHLORIDE 0.9% MINIBAG 100 ML IV STA (15:19)
[2019-12-10] MEDS ORDERED: AZITHROMYCIN INJ 500 MG in SODIUM CHLORIDE 0.9% 250 ML IV STA (15:19)
[2019-12-10] MEDS ORDERED: ONDANSETRON 4 MG/2 ML VIAL IVP PRN (15:40)
[2019-12-10] MEDS ORDERED: HYDROcod/ACETAM 5/325 MG TABLET PO PRN (15:56)
[2019-12-10] MEDS ORDERED: ALBUTEROL NEB 2.5 MG/3 ML INH PRN (15:57)
--- NOTE | 2019-12-10 16:14 | HISTORY & PHYSICAL EXAMINATION ---
Chief Complaint - Chief Complaint Chief Complaint: confused, hypoxia History of Present Illness - Admitted From Admitted From:: ER - History Obtained From Exam Limitations: confused - History of Present Illness HPI Comment/Other: This is 79-yrs-old female with a PMH significant for Hypertension, hx of Pulmonary embolism, [place], Asthma, Dementia, schizophrenia, hypothyroidism, alcoholic abuse, COPD with hx of cigarette smoker, who present ER for dyspnea. pt is confused today and she could not provide information. Per ER provider's report from [facility] patient has became hypoxic and tachypneic at rest, and her symptoms including shortness of breath progressed rapidly. CXR reveals interval development of interstitial opacities in the lungs bilaterally in which Differential diagnosis includes pulmonary edema and interstitial pneumonia, with no evidence for pulmonary vascular congestion or pleural effusions. In route lab test in ER, pt has WBC 2.9, elevated creatinine 1.4, slight AST 53, and slight elevated D-dimer 375. pt is afebrile now and require 2 liter of O2 to remain 98% sats now. ER provider ordered Covid 19 virus lung infection, and result is pending. pt is admitted for further evaluation and treatment in medical floor. pt has new PLOST which reveal full code status. History - Past Medical History Cardiovascular: reports: Hypertension, Pulmonary embolism, [place] Respiratory: reports: Asthma Neuro: reports: Dementia Endocrine/Autoimmune: reports: None GI: reports: None CENTRAL SUPPLY TECHNICIAN: reports: None : reports: None HEENT: reports: None Psych: reports: None Musculoskeletal: reports: None Derm: reports: None MRSA Hx?: No - Past Surgical History Cardiovascular: reports: Coronary stent HEENT: reports: Tonsil/Adenoidectomy - Family & Social History Family History Comment/Other: pt confused and could not provide family hx Social History Notes: pt confused and could not provide social hx - POLST Patient has POLST: No Meds/Allgy - Home Medications Home Medications: Ambulatory Orders Medication Instructions Recorded Confirmed Aspirin Chewable [St Chucky 81 mg PO DAILY 01/14/18 12/10/19 Aspirin] Levothyroxine Sodium [Synthroid] 50 mcg PO MOTUWETHFRSA 01/14/18 12/10/19 Levothyroxine Sodium [Synthroid] 100 mcg PO MATTHEWS 01/14/18 12/10/19 Metoprolol Succinate [Toprol Xl] 25 mg PO DAILY 01/14/18 12/10/19 Saccharomyces Boulardii [Florastor] 250 mg PO DAILY 01/14/18 12/10/19 traMADol [Ultram] 25 mg PO BID 01/14/18 12/10/19 Acetaminophen [Tylenol Extra 1,000 mg PO TID 12/10/19 12/10/19 Strength] Ipratropium/Albuterol Sulfate 3 ml IH Q6H PRN 12/10/19 12/10/19 [Iprat-Albut 0.5-3(2.5) mg/3 ml] Melatonin 3 mg PO QPM 12/10/19 12/10/19 Menthol [Cough Drops] 1 brynn MM Q2H PRN 12/10/19 12/10/19 Mirabegron [Myrbetriq] 25 mg PO DAILY 12/10/19 12/10/19 Nitroglycerin [Nitrostat] 0.4 mg SL Q5MIN PRN 12/10/19 12/10/19 Quetiapine Fumarate 75 mg PO BID 12/10/19 12/10/19 Valsartan 40 mg PO DAILY 12/10/19 12/10/19 - Allergies Allergies/Adverse Reactions: Allergies Allergy/AdvReac Type Severity Reaction Status Date / Time egg Allergy Severe Anaphylaxis Verified 12/10/19 16:44 Influenza Virus Vaccines Allergy Severe Anaphylaxis Verified 12/10/19 16:44 lisinopril Allergy Intermediate Edema Verified 12/10/19 12:42 Review of Systems - Other Findings Other Findings: pt confused and could not answer ROS questions Exam - Vital Signs Vital Signs: Vital Signs x48h Temp Pulse Resp BP Pulse Ox 12/10/19 15:47 91 20 138/81 H 94 12/10/19 15:35 86 20 12/10/19 14:47 84 18 119/50 L 97 12/10/19 13:35 78 17 130/82 H 98 12/10/19 12:38 36.5 C 87 20 123/75 94 - Physical Exam General Appearance: positive: Alert, Mild distress. negative: Lethargic Eyes Bilateral: positive: Normal inspection, PERRL ENT: positive: ENT inspection nml, Pharynx nml, Dry mucous membranes. negative: Purulent nasal drainage Neck: positive: Nml inspection, Thyroid nml, No JVD, Trachea midline. negative: Thyromegaly, Lymphadenopathy (R), Lymphadenopathy (L), Stiff neck, Tracheal deviation Respiratory: positive: Chest non-tender, Rales, Rhonchi. negative: No respiratory distress, Breath sounds nml, Wheezes Cardiovascular: positive: Regular rate & rhythm, No murmur, No gallop. negative: Irregularly irregular, Extrasystoles, Tachycardia, Bradycardia, JVD present, Systolic murmur, Diastolic murmur Peripheral Pulses: positive: 2+ Abdomen: positive: Non-tender, No organomegaly, Nml bowel sounds, No distention. negative: Tenderness, Guarding, Rebound Back: positive: Nml inspection. negative: CVA tenderness (R), CVA tenderness (L) Skin: positive: Color nml, No rash, Warm, Dry. negative: Cyanosis, Diaphoresis, Pallor Extremities: positive: Non-tender, Nml appearance. negative: Calf tenderness, Miguel's sign/cords Neurologic/Psychiatric: positive: Sensation nml. negative: Weakness, Sensory loss, Facial droop, Slurred/abnml speech Conclusion/Plan - Problem List (1) Altered mental status Conclusion/Plan: pt is confusing. pt has hx of dementia and schizophrenia, and with acute pneumonia and UTI. pt dd not present unilateral focus neurological deficits. treat underline of infection with antibiotics, resume home quetiapine, neuro check Qualifiers: Altered mental status type: transient alteration of awareness Qualified Code(s): R40.4 - Transient alteration of awareness (2) Atypical pneumonia Conclusion/Plan: pt was order Covid 19. pt has bilateral atypical pneumonia, elevated AST, D- dimer, and lower WBC, but pt has no fever now. pt present significant SOB, suspension COVID 19. will check CK, and PT/INR according to recent publication in [place] droplet precaution strictly, Covid 19 test is pending treat with antibiotics until Covid 19 result come back (3) UTI (urinary tract infection) Conclusion/Plan: route lab test indicate UTI. UA analysis is pending now, will treat with Rocephin Qualifiers: Urinary tract infection type: acute cystitis Hematuria presence: without hematuria Qualified Code(s): N30.00 - Acute cystitis without hematuria (4) COPD (chronic obstructive pulmonary disease) Conclusion/Plan: CXR reveals pt's pulmonary distress is likely from lung infection. PRN for albuterol and Duoneb. supplement of O2 as needed (5) Schizophrenia Conclusion/Plan: pt is confusing, resume home Quetiapine now (6) HTN (hypertension) Conclusion/Plan: stable, will resume home BP meds, BP monitor (7) Hypothyroidism Conclusion/Plan: resume home Levothyroxine and check TSH (8) Hx of myocardial infarction Conclusion/Plan: pt has no chest pain, will check troponin. resume home Aspirin and nitro PRN (9) Dementia Conclusion/Plan: pt has hx of dementia, will continue support - Lab Results Fish Bones: 12/10/19 13:20 12/10/19 13:20 Core Measures - Anticipated LOS I expect patient to be DC'd or transferred within 96 hours.: Yes - DVT/VTE - Prophylaxis VTE/DVT Device ordered at admit?: Yes VTE/DVT Prophylaxis med ordered at admit?: Yes
--- NOTE | 2019-12-10 16:59 | PHARMACY PROGRESS NOTE ---
- Best Possible Medication History Admit Date and Time: 12/10/19 1540 Processed by: Pharmacy Medication History completed: Yes Patient Interview: Pt unable to participate Secondary Source(s): Facility MAR as ONLY source As the person ultimately responsible for medication therapy, providers are able to order a medication from an existing home medication list in [facility] via the "Reconcile Routine" prior to Confirmation of that medication by technology support analyst. Such practice is discouraged except when the physician, in their clinical judgment, deems that a medical need exists for a medication without regard to previous use.
[2019-12-10] MEDS: SODIUM CHLORIDE FLUSH 0.9% 10 ML SYRINGE IVP SCH (17:10)
[2019-12-10] MEDS: SACCHAROMYCES BOULARDII 250 MG CAPSULE PO SCH (17:10)
[2019-12-10] MEDS: SODIUM CHLORIDE 0.9% 1,000 ML IV SCH (17:11)
[2019-12-10] MEDS ORDERED: NITROGLYCERIN SL 0.4 MG TABLET SL PRN (18:00)
[2019-12-10] MEDS ORDERED: NON FORMULARY MED (Melatonin [Melatonin] 3 MG) PO SCH (21:00)
[2019-12-10] MEDS ORDERED: QUEtiapine 100 MG TABLET PO SCH (21:00)
[2019-12-10] MEDS: traMADol 50 MG TABLET PO SCH (21:01)
[2019-12-10] MEDS: QUEtiapine 25 MG TABLET PO SCH (21:01)
[2019-12-10] MEDS: FAMOTIDINE 20 MG TABLET PO SCH (21:01)
[2019-12-11] MEDS: SODIUM CHLORIDE 0.9% 1,000 ML IV SCH ×2 (05:34→20:06)
[2019-12-11] MEDS: SODIUM CHLORIDE FLUSH 0.9% 10 ML SYRINGE IVP SCH ×3 (05:34→18:43)
[2019-12-11] MEDS: ACETAMINOPHEN 325 MG TABLET PO PRN ×2 (05:34→16:24)
[2019-12-11 05:44] LABS: BASOPHILS % (AUTO) 0.3 %; EOSINOPHILS # (AUTO) 0.1 10^3/uL (0.0-0.7); EOSINOPHILS % (AUTO) 2.2 %; HGB - HEMOGLOBIN 11.6 g/dL (12.0-16.0); LYMPHOCYTES # (AUTO) 0.9 10^3/uL (1.5-3.5); LYMPHOCYTES % (AUTO) 29.9 %; MEAN CORPUSCULAR HEMOGLOBIN 30.3 pg (27.0-31.0); MEAN CORPUSCULAR HGB CONC 30.9 g/dL (32.0-36.0); MEAN CORPUSCULAR VOLUME 97.9 fL (81.0-99.0); MEAN PLATELET VOLUME 9.4 fL (7.9-10.8); MONOCYTES # (AUTO) 0.4 10^3/uL (0.0-1.0); MONOCYTES % (AUTO) 11.5 %; NEUTROPHILS # (AUTO) 1.7 10^3/uL (1.5-6.6); NEUTROPHILS % (AUTO) 55.1 %; PLT - PLATELET COUNT 153 10^3/uL (130-450); RED BLOOD COUNT 3.83 10^6/uL (4.20-5.40); RED CELL DISTRIBUTION WIDTH 12.4 % (12.0-15.0); WHITE BLOOD COUNT 3.1 x10^3/uL (4.8-10.8)
[2019-12-11 05:48] LABS: INR 1.2 (0.8-1.2)
[2019-12-11 05:54] LABS: HB2 TOTAL 12.1 g/dL; HEMOGLOBIN A1C 0.52 g/dL; HEMOGLOBIN A1C % 6.1 % (4.6-6.2)
[2019-12-11 05:59] LABS: BILIRUBIN,TOTAL 0.5 mg/dL (0.2-1.0); CALCIUM 8.4 mg/dL (8.5-10.3); CREATININE 1.1 mg/dL (0.4-1.0); TOTAL PROTEIN 6.1 g/dL (6.7-8.2)
[2019-12-11] MEDS: IPRATROPIUM/ALBUTEROL 3 ML NEB INH PRN (06:10)
[2019-12-11] MEDS: LEVOTHYROXINE 25 MCG TABLET PO SCH (06:39)
[2019-12-11] MEDS: ASPIRIN CHEW 81 MG TABLET PO SCH (08:50)
[2019-12-11] MEDS: traMADol 50 MG TABLET PO SCH ×2 (08:50→20:06)
[2019-12-11] MEDS: METOPROLOL SUCCINATE 25 MG TABLET PO SCH (08:50)
[2019-12-11] MEDS: QUEtiapine 25 MG TABLET PO SCH ×2 (08:50→20:06)
[2019-12-11] MEDS: SACCHAROMYCES BOULARDII 250 MG CAPSULE PO SCH ×2 (08:51→16:25)
[2019-12-11] MEDS ORDERED: ENOXAPARIN 30 MG/0.3 ML SYRINGE SUBQ SCH (09:00)
[2019-12-11] MEDS ORDERED: AZITHROMYCIN INJ 500 MG in SODIUM CHLORIDE 0.9% 250 ML IV SCH (09:00)
[2019-12-11] MEDS: cefTRIAXone 2 GM in SODIUM CHLORIDE 0.9% MINIBAG 100 ML IV SCH (09:08)
[2019-12-11] MEDS: FAMOTIDINE 20 MG TABLET PO SCH ×3 (10:21→20:07)
--- NOTE | 2019-12-11 13:42 | PROVIDER PROGRESS NOTE ---
Subjective - Prog Note Date Prog Note Date: 12/11/19 - Subjective Pt reports feeling: Worse Subjective: pt is alert but still confused, could not answer questions. pt present more difficult for breathing. new CXR reveals increase density in bilateral lung. Covid 19 test is still pending. I called pt's Guardian Anabell at [phone] update pt's medical conditions, discussed with her about care plan and care goal. Anabell state for pt's quality of life, she do think pt should have DNR/DNI. Current Medications - Current Medications Current Medications: Active Medications Acetaminophen (Tylenol) 650 mg PO Q4HR PRN PRN Reason: Pain 1 to 4 Last Admin: 12/11/19 05:34 Dose: 650 mg Albuterol () 2.5 mg INH RTQ4H PRN PRN Reason: Wheezing Albuterol/Ipratropium (Duoneb) 3 ml INH RTQID PRN PRN Reason: Shortness of Air/Wheezing Last Admin: 12/11/19 06:10 Dose: 3 ml Aspirin ([place] Chucky Aspirin) 81 mg PO DAILY [facility] Last Admin: 12/11/19 08:50 Dose: 81 mg Enoxaparin Sodium (Lovenox) 30 mg SUBQ DAILY [facility] Last Admin: 12/11/19 08:51 Dose: 30 mg Famotidine (Pepcid) 10 mg PO BID [facility] Last Admin: 12/11/19 10:26 Dose: 10 mg Sodium Chloride (Normal Saline 0.9%) 1,000 mls @ 75 mls/hr IV .[id number] [facility] Last Admin: 12/11/19 05:34 Dose: 75 mls/hr Azithromycin 500 mg/ Sodium (Chloride) 250 mls @ 250 mls/hr IV DAILY [facility] Stop: 12/12/19 09:59 Last Infusion: 12/11/19 11:25 Dose: Infused Ceftriaxone Sodium 2 gm/ (Sodium Chloride) 100 mls @ 200 mls/hr IV DAILY [facility] Stop: 12/14/19 09:29 Last Infusion: 12/11/19 09:38 Dose: Infused Levothyroxine Sodium (Synthroid) 100 mcg PO [id number] [facility] Levothyroxine Sodium (Synthroid) 50 mcg PO [id number]@0700 [facility] Last Admin: 03/19/20 06:39 Dose: Not Given Metoprolol Succinate (Toprol Xl) 25 mg PO DAILY [facility] Last Admin: 12/11/19 08:50 Dose: 25 mg Morphine Sulfate (Morphine (Carpuject)) 2 mg IVP Q2HR PRN PRN Reason: PAIN Last Admin: 12/11/19 13:59 Dose: 2 mg Nitroglycerin (Nitrostat) 0.4 mg SL Q5MIN PRN PRN Reason: Chest Pain Ondansetron HCl (Zofran Inj) 4 mg IVP Q6HR PRN PRN Reason: Nausea / Vomiting Quetiapine Fumarate (Seroquel) 75 mg PO BID [facility] Last Admin: 12/11/19 08:50 Dose: 75 mg Saccharomyces Boulardii ([facility]) [facility] [place] Last Admin: 12/11/19 08:51 Dose: 250 mg Sodium Chloride (Normal Saline Flush 0.9%) 10 ml IVP PRN PRN PRN Reason: NEEDED PER PROVIDER ORDERS Sodium Chloride (Normal Saline Flush 0.9%) 10 ml IVP 0100,0900,1700 [facility] Last Admin: 12/11/19 08:51 Dose: Not Given Tramadol HCl (Ultram) 25 mg PO BID [facility] Last Admin: 12/11/19 08:50 Dose: 25 mg Aspirin Chewable [St Chucky Aspirin] 81 mg PO DAILY 01/14/18 Levothyroxine Sodium [Synthroid] 50 mcg PO [id number] 01/14/18 Levothyroxine Sodium [Synthroid] 100 mcg PO FOLEY 01/14/18 Metoprolol Succinate [Toprol Xl] 25 mg PO DAILY 01/14/18 Saccharomyces Boulardii [Florastor] 250 mg PO DAILY 01/14/18 traMADol [Ultram] 25 mg PO BID 01/14/18 Acetaminophen [Tylenol Extra Strength] 1,000 mg PO TID 12/10/19 Ipratropium/Albuterol Sulfate [Iprat-Albut 0.5-3(2.5) mg/3 ml] 3 ml IH Q6H PRN 12/10/19 Melatonin 3 mg PO QPM 12/10/19 Menthol [Cough Drops] 1 brynn MM Q2H PRN 12/10/19 Mirabegron [Myrbetriq] 25 mg PO DAILY 12/10/19 Nitroglycerin [Nitrostat] 0.4 mg SL Q5MIN PRN 12/10/19 Quetiapine Fumarate 75 mg PO BID 12/10/19 Valsartan 40 mg PO DAILY 12/10/19 Objective - Vital Signs/Intake & Output Vital Signs: Vital Signs x48h Temp Pulse Pulse Resp BP Pulse Ox 12/11/19 12:24 92 12/11/19 11:51 37.1 C 75 32 H 117/80 94 12/11/19 09:00 92 12/11/19 08:07 36.6 C 87 22 143/69 H 91 L 12/11/19 06:10 84 22 Intake & Output: Intake & Output 12/08/19 12/09/19 12/10/19 12/11/19 23:59 23:59 23:59 23:59 Intake Total 500 1213.75 Output Total 200 450 Balance 300 763.75 - Objective General Appearance: positive: Alert, Moderate distress. negative: Lethargic Eyes Bilateral: positive: Normal inspection, PERRL, No lid inflammation ENT: positive: ENT inspection nml, Pharynx nml, No signs of dehydration. negative: Purulent nasal drainage Neck: positive: Nml inspection, Thyroid nml, No JVD, Trachea midline. negative: Thyromegaly, Lymphadenopathy (R), Lymphadenopathy (L), Stiff neck, Tracheal deviation Respiratory: positive: Chest non-tender, Rales, Rhonchi. negative: No respiratory distress, Breath sounds nml, Wheezes Cardiovascular: positive: Regular rate & rhythm, No murmur, No gallop. negative: Irregularly irregular, Extrasystoles, Tachycardia, Bradycardia, JVD present, Systolic murmur, Diastolic murmur Peripheral Pulses: 2+ Radial (R), 2+ Radial (L), 2+ Dorsalis pedis (R), 2+ Dorsalis pedis (L) Abdomen: positive: Non-tender, No organomegaly, Nml bowel sounds, No distention. negative: Tenderness, Guarding, Rebound Back: negative: Nml inspection Skin: positive: Color nml, No rash, Warm, Dry. negative: Cyanosis, Diaphoresis, Pallor Extremities: positive: Non-tender, Nml appearance. negative: Calf tenderness, Miguel's sign/cords Neurologic/Psychiatric: positive: Sensation nml. negative: Weakness, Sensory loss, Facial droop, Slurred/abnml speech - Lab Results Fish Bones: 12/11/19 05:10 12/11/19 05:10 Other Labs: Lab Results x24hrs 12/11/19 12/11/19 12/11/19 Range/Units 05:10 05:10 05:10 WBC (4.8-10.8) x10^3/uL RBC (4.20-5.40) 10^6/uL Hgb (12.0-16.0) g/dL Hct (37.0-47.0) % MCV (81.0-99.0) fL MCH (27.0-31.0) pg MCHC (32.0-36.0) g/dL RDW (12.0-15.0) % Plt Count (130-450) 10^3/uL MPV (7.9-10.8) fL Neut # (Auto) (1.5-6.6) 10^3/uL Lymph # (Auto) (1.5-3.5) 10^3/uL [place] # (Auto) (0.0-1.0) 10^3/uL Eos # (Auto) (0.0-0.7) 10^3/uL Baso # (Auto) (0.0-0.1) 10^3/uL Absolute Nucleated RBC x10^3/uL Nucleated RBC % /100WBC Manual Slide Review RBC Morph Micro Appear (NORMAL) PT 13.0 H (9.9-12.6) secs INR 1.2 (0.8-1.2) D-Dimer (200.0-255.0) ng/mL Sodium (135-145) mmol/L Potassium (3.5-5.0) mmol/L Chloride (101-111) mmol/L Carbon Dioxide (21-32) mmol/L Anion Gap (6-13) BUN (6-20) mg/dL Creatinine (0.4-1.0) mg/dL Estimated GFR (MDRD) (>89) Glucose (70-100) mg/dL Glycated Hemoglobin 6.1 (4.6-6.2) % Estim Average Glucose 128 H (70-100) Lactic Acid (0.5-2.2) mmol/L Calcium (8.5-10.3) mg/dL Magnesium (1.7-2.8) mg/dL Total Bilirubin (0.2-1.0) mg/dL AST (10-42) IU/L ALT (10-60) IU/L Alkaline Phosphatase (42-121) IU/L Total Creatine Kinase (22-269) IU/L Troponin I High Sens (2.3-14.8) ng/L B-Natriuretic Peptide (5-100) pg/mL Total Protein (6.7-8.2) g/dL Albumin (3.2-5.5) g/dL Globulin (2.1-4.2) g/dL Albumin/Globulin Ratio (1.0-2.2) Lipase (22-51) U/L TSH 1.76 (0.34-5.60) uIU/mL Urine Color Urine Clarity (CLEAR) Urine pH (5.0-7.5) PH Ur Specific Morris (1.002-1.030) Urine Protein (NEGATIVE) mg/dL Urine Glucose (UA) (NEGATIVE) mg/dL Urine Ketones (NEGATIVE) mg/dL Urine Occult Blood (NEGATIVE) Urine Nitrite (NEGATIVE) Urine Bilirubin (NEGATIVE) Urine Urobilinogen (NORMAL) E.U./dL Ur Leukocyte Esterase (NEGATIVE) Urine RBC (0-5) /HPF Urine WBC (0-5) /HPF Ur Squamous Epith Cells (<= Few) Urine Bacteria (None Seen) /HPF Ur Microscopic Review Urine Culture Comments Influenza A (Rapid) (Negative) Influenza B (Rapid) (Negative) 12/11/19 12/11/19 12/10/19 Range/Units 05:10 05:10 22:06 WBC 3.1 L (4.8-10.8) x10^3/uL RBC 3.83 L (4.20-5.40) 10^6/uL Hgb 11.6 L (12.0-16.0) g/dL Hct 37.5 (37.0-47.0) % MCV 97.9 (81.0-99.0) fL MCH 30.3 (27.0-31.0) pg MCHC 30.9 L (32.0-36.0) g/dL RDW 12.4 (12.0-15.0) % Plt Count 153 (130-450) 10^3/uL MPV 9.4 (7.9-10.8) fL Neut # (Auto) 1.7 (1.5-6.6) 10^3/uL Lymph # (Auto) 0.9 L (1.5-3.5) 10^3/uL Horry # (Auto) 0.4 (0.0-1.0) 10^3/uL Eos # (Auto) 0.1 (0.0-0.7) 10^3/uL Baso # (Auto) 0.0 (0.0-0.1) 10^3/uL Absolute Nucleated RBC 0.00 x10^3/uL Nucleated RBC % 0.0 /100WBC Manual Slide Review RBC Morph Micro Appear (NORMAL) PT (9.9-12.6) secs INR (0.8-1.2) D-Dimer (200.0-255.0) ng/mL Sodium 139 (135-145) mmol/L Potassium 4.3 (3.5-5.0) mmol/L Chloride 112 H (101-111) mmol/L Carbon Dioxide 24 (21-32) mmol/L Anion Gap 3.0 L (6-13) BUN 28 H (6-20) mg/dL Creatinine 1.1 H (0.4-1.0) mg/dL Estimated GFR (MDRD) 48 L (>89) Glucose 85 (70-100) mg/dL Glycated Hemoglobin (4.6-6.2) % Estim Average Glucose (70-100) Lactic Acid (0.5-2.2) mmol/L Calcium 8.4 L (8.5-10.3) mg/dL Magnesium 2.0 (1.7-2.8) mg/dL Total Bilirubin 0.5 (0.2-1.0) mg/dL AST 51 H (10-42) IU/L ALT 22 (10-60) IU/L Alkaline Phosphatase 57 (42-121) IU/L Total Creatine Kinase 512 H (22-269) IU/L Troponin I High Sens 21.7 H* (2.3-14.8) ng/L B-Natriuretic Peptide (5-100) pg/mL Total Protein 6.1 L (6.7-8.2) g/dL Albumin 3.0 L (3.2-5.5) g/dL Globulin 3.1 (2.1-4.2) g/dL Albumin/Globulin Ratio 1.0 (1.0-2.2) Lipase (22-51) U/L TSH (0.34-5.60) uIU/mL Urine Color Urine Clarity (CLEAR) Urine pH (5.0-7.5) PH Ur Specific Morris (1.002-1.030) Urine Protein (NEGATIVE) mg/dL Urine Glucose (UA) (NEGATIVE) mg/dL Urine Ketones (NEGATIVE) mg/dL Urine Occult Blood (NEGATIVE) Urine Nitrite (NEGATIVE) Urine Bilirubin (NEGATIVE) Urine Urobilinogen (NORMAL) E.U./dL Ur Leukocyte Esterase (NEGATIVE) Urine RBC (0-5) /HPF Urine WBC (0-5) /HPF Ur Squamous Epith Cells (<= Few) Urine Bacteria (None Seen) /HPF Ur Microscopic Review Urine Culture Comments Influenza A (Rapid) (Negative) Influenza B (Rapid) (Negative) 12/10/19 12/10/19 12/10/19 Range/Units 18:40 13:20 13:20 WBC (4.8-10.8) x10^3/uL RBC (4.20-5.40) 10^6/uL Hgb (12.0-16.0) g/dL Hct (37.0-47.0) % MCV (81.0-99.0) fL MCH (27.0-31.0) pg MCHC (32.0-36.0) g/dL RDW (12.0-15.0) % Plt Count (130-450) 10^3/uL MPV (7.9-10.8) fL Neut # (Auto) (1.5-6.6) 10^3/uL Lymph # (Auto) (1.5-3.5) 10^3/uL Horry # (Auto) (0.0-1.0) 10^3/uL Eos # (Auto) (0.0-0.7) 10^3/uL Baso # (Auto) (0.0-0.1) 10^3/uL Absolute Nucleated RBC x10^3/uL Nucleated RBC % /100WBC Manual Slide Review RBC Morph Micro Appear (NORMAL) PT (9.9-12.6) secs INR (0.8-1.2) D-Dimer 374.9 H (200.0-255.0) ng/mL Sodium (135-145) mmol/L Potassium (3.5-5.0) mmol/L Chloride (101-111) mmol/L Carbon Dioxide (21-32) mmol/L Anion Gap (6-13) BUN (6-20) mg/dL Creatinine (0.4-1.0) mg/dL Estimated GFR (MDRD) (>89) Glucose (70-100) mg/dL Glycated Hemoglobin (4.6-6.2) % Estim Average Glucose (70-100) Lactic Acid (0.5-2.2) mmol/L Calcium (8.5-10.3) mg/dL Magnesium (1.7-2.8) mg/dL Total Bilirubin (0.2-1.0) mg/dL AST (10-42) IU/L ALT (10-60) IU/L Alkaline Phosphatase (42-121) IU/L Total Creatine Kinase (22-269) IU/L Troponin I High Sens 21.7 H* (2.3-14.8) ng/L B-Natriuretic Peptide (5-100) pg/mL Total Protein (6.7-8.2) g/dL Albumin (3.2-5.5) g/dL Globulin (2.1-4.2) g/dL Albumin/Globulin Ratio (1.0-2.2) Lipase (22-51) U/L TSH (0.34-5.60) uIU/mL Urine Color Urine Clarity (CLEAR) Urine pH (5.0-7.5) PH Ur Specific Morris (1.002-1.030) Urine Protein (NEGATIVE) mg/dL Urine Glucose (UA) (NEGATIVE) mg/dL Urine Ketones (NEGATIVE) mg/dL Urine Occult Blood (NEGATIVE) Urine Nitrite (NEGATIVE) Urine Bilirubin (NEGATIVE) Urine Urobilinogen (NORMAL) E.U./dL Ur Leukocyte Esterase (NEGATIVE) Urine RBC (0-5) /HPF Urine WBC (0-5) /HPF Ur Squamous Epith Cells (<= Few) Urine Bacteria (None Seen) /HPF Ur Microscopic Review Urine Culture Comments Influenza A (Rapid) Negative (Negative) Influenza B (Rapid) Negative (Negative) 12/10/19 12/10/19 12/10/19 Range/Units 13:20 13:20 13:20 WBC (4.8-10.8) x10^3/uL RBC (4.20-5.40) 10^6/uL Hgb (12.0-16.0) g/dL Hct (37.0-47.0) % MCV (81.0-99.0) fL MCH (27.0-31.0) pg MCHC (32.0-36.0) g/dL RDW (12.0-15.0) % Plt Count (130-450) 10^3/uL MPV (7.9-10.8) fL Neut # (Auto) (1.5-6.6) 10^3/uL Lymph # (Auto) (1.5-3.5) 10^3/uL [place] # (Auto) (0.0-1.0) 10^3/uL Eos # (Auto) (0.0-0.7) 10^3/uL Baso # (Auto) (0.0-0.1) 10^3/uL Absolute Nucleated RBC x10^3/uL Nucleated RBC % /100WBC Manual Slide Review RBC Morph Micro Appear (NORMAL) PT (9.9-12.6) secs INR (0.8-1.2) D-Dimer (200.0-255.0) ng/mL Sodium 138 (135-145) mmol/L Potassium 4.5 (3.5-5.0) mmol/L Chloride 104 (101-111) mmol/L Carbon Dioxide 24 (21-32) mmol/L Anion Gap 10.0 (6-13) BUN 38 H (6-20) mg/dL Creatinine 1.4 H (0.4-1.0) mg/dL Estimated GFR (MDRD) 36 L (>89) Glucose 103 H (70-100) mg/dL Glycated Hemoglobin (4.6-6.2) % Estim Average Glucose (70-100) Lactic Acid 1.1 (0.5-2.2) mmol/L Calcium 9.1 (8.5-10.3) mg/dL Magnesium (1.7-2.8) mg/dL Total Bilirubin 0.6 (0.2-1.0) mg/dL AST 53 H (10-42) IU/L ALT 25 (10-60) IU/L Alkaline Phosphatase 66 (42-121) IU/L Total Creatine Kinase (22-269) IU/L Troponin I High Sens (2.3-14.8) ng/L B-Natriuretic Peptide 39 (5-100) pg/mL Total Protein 7.1 (6.7-8.2) g/dL Albumin 3.5 (3.2-5.5) g/dL Globulin 3.6 (2.1-4.2) g/dL Albumin/Globulin Ratio 1.0 (1.0-2.2) Lipase 47 (22-51) U/L TSH (0.34-5.60) uIU/mL Urine Color Urine Clarity (CLEAR) Urine pH (5.0-7.5) PH Ur Specific Morris (1.002-1.030) Urine Protein (NEGATIVE) mg/dL Urine Glucose (UA) (NEGATIVE) mg/dL Urine Ketones (NEGATIVE) mg/dL Urine Occult Blood (NEGATIVE) Urine Nitrite (NEGATIVE) Urine Bilirubin (NEGATIVE) Urine Urobilinogen (NORMAL) E.U./dL Ur Leukocyte Esterase (NEGATIVE) Urine RBC (0-5) /HPF Urine WBC (0-5) /HPF Ur Squamous Epith Cells (<= Few) Urine Bacteria (None Seen) /HPF Ur Microscopic Review Urine Culture Comments Influenza A (Rapid) (Negative) Influenza B (Rapid) (Negative) 12/10/19 12/10/19 Range/Units 13:20 12:55 WBC 2.9 L (4.8-10.8) x10^3/uL RBC 4.01 L (4.20-5.40) 10^6/uL Hgb 12.6 (12.0-16.0) g/dL Hct 39.1 (37.0-47.0) % MCV 97.5 (81.0-99.0) fL MCH 31.4 H (27.0-31.0) pg MCHC 32.2 (32.0-36.0) g/dL RDW 12.4 (12.0-15.0) % Plt Count 162 (130-450) 10^3/uL MPV 9.3 (7.9-10.8) fL Neut # (Auto) 1.6 (1.5-6.6) 10^3/uL Lymph # (Auto) 0.9 L (1.5-3.5) 10^3/uL [place] # (Auto) 0.4 (0.0-1.0) 10^3/uL Eos # (Auto) 0.0 (0.0-0.7) 10^3/uL Baso # (Auto) 0.0 (0.0-0.1) 10^3/uL Absolute Nucleated RBC 0.00 x10^3/uL Nucleated RBC % 0.0 /100WBC Manual Slide Review Indicated RBC Morph Micro Appear 1+ ANISOCYTOSIS (NORMAL) PT (9.9-12.6) secs INR (0.8-1.2) D-Dimer (200.0-255.0) ng/mL Sodium (135-145) mmol/L Potassium (3.5-5.0) mmol/L Chloride (101-111) mmol/L Carbon Dioxide (21-32) mmol/L Anion Gap (6-13) BUN (6-20) mg/dL Creatinine (0.4-1.0) mg/dL Estimated GFR (MDRD) (>89) Glucose (70-100) mg/dL Glycated Hemoglobin (4.6-6.2) % Estim Average Glucose (70-100) Lactic Acid (0.5-2.2) mmol/L Calcium (8.5-10.3) mg/dL Magnesium (1.7-2.8) mg/dL Total Bilirubin (0.2-1.0) mg/dL AST (10-42) IU/L ALT (10-60) IU/L Alkaline Phosphatase (42-121) IU/L Total Creatine Kinase (22-269) IU/L Troponin I High Sens (2.3-14.8) ng/L B-Natriuretic Peptide (5-100) pg/mL Total Protein (6.7-8.2) g/dL Albumin (3.2-5.5) g/dL Globulin (2.1-4.2) g/dL Albumin/Globulin Ratio (1.0-2.2) Lipase (22-51) U/L TSH (0.34-5.60) uIU/mL Urine Color DARK YELLOW Urine Clarity CLEAR (CLEAR) Urine pH 5.5 (5.0-7.5) PH Ur Specific Morris 1.025 (1.002-1.030) Urine Protein TRACE (NEGATIVE) mg/dL Urine Glucose (UA) NEGATIVE (NEGATIVE) mg/dL Urine Ketones NEGATIVE (NEGATIVE) mg/dL Urine Occult Blood NEGATIVE (NEGATIVE) Urine Nitrite POSITIVE H (NEGATIVE) Urine Bilirubin NEGATIVE (NEGATIVE) Urine Urobilinogen 0.2 (NORMAL) (NORMAL) E.U./dL Ur Leukocyte Esterase TRACE H (NEGATIVE) Urine RBC 0-5 (0-5) /HPF Urine WBC 11-25 H (0-5) /HPF Ur Squamous Epith Cells FEW Squamous (<= Few) Urine Bacteria Many H (None Seen) /HPF Ur Microscopic Review INDICATED Urine Culture Comments INDICATED Influenza A (Rapid) (Negative) Influenza B (Rapid) (Negative) ABX Reporting Has patient been on IV antibiotics over the past 48 hours?: Yes Assessment/Plan - Problem List (1) Altered mental status Impression: 12/10, still confused. pt still has severe lung infection. continue treat with antibiotics, IVF gently, Covid 19 test is pending. pt is confusing. pt has hx of dementia and schizophrenia, and with acute pneumonia and UTI. pt dd not present unilateral focus neurological deficits. treat underline of infection with antibiotics, resume home quetiapine, neuro check (2) Atypical pneumonia Conclusion/Plan: 12/10 present more respiratory distress. Lung sound is worsening with more crackles bilaterally, CXR reveal increase of bilateral density. continue treat bacteremian infection now, covid 19 is pending, continue supplement of O2 as needed pt was order Covid 19. pt has bilateral atypical pneumonia, elevated AST, D- dimer, and lower WBC, but pt has no fever now. pt present significant SOB, suspension COVID 19. will check CK, and PT/INR according to recent publication in [place] droplet precaution strictly, Covid 19 test is pending treat with antibiotics until Covid 19 result come back (3) respiratory distress with hypoxia 12/10 pt present more respiratory distress, RR increase. pt present 93% sats on 7 liter of O2 and worsening than yesterday. CXR reveal increase of bilateral density continue to treat with antibiotics now, continue support and IV of NS gently. Covid 19 is pending. (3) UTI (urinary tract infection) Conclusion/Plan: route lab test indicate UTI. UA analysis is pending now, will treat with Rocephin (4) COPD (chronic obstructive pulmonary disease) Conclusion/Plan: CXR reveals pt's pulmonary distress is likely from lung infection. PRN for albuterol and Duoneb. supplement of O2 as needed (5) Schizophrenia Conclusion/Plan: pt is confusing, resume home Quetiapine now (6) HTN (hypertension) Conclusion/Plan: stable, will resume home BP meds, BP monitor (7) Hypothyroidism Conclusion/Plan: resume home Levothyroxine and check TSH (8) Hx of myocardial infarction Conclusion/Plan: pt has no chest pain, will check troponin. resume home Aspirin and nitro PRN (9) Dementia Conclusion/Plan: pt has hx of dementia, will continue support Qualifiers: Altered mental status type: transient alteration of awareness Qualified Code(s): R40.4 - Transient alteration of awareness (3) UTI (urinary tract infection) Qualifiers: Urinary tract infection type: acute cystitis Hematuria presence: without hematuria Qualified Code(s): N30.00 - Acute cystitis without hematuria
--- NOTE | 2019-12-11 13:52 | XRAY Report ---
Reason: SOB Procedure Date: 12/11/2019 Accession Number: [id number] / [id number] Procedure: XR - Chest 1 View X-Ray CPT Code: 08411 Final Report FULL RESULT: EXAM: CHEST RADIOGRAPHY EXAM DATE: 12/11/2019 01:36 PM. CLINICAL HISTORY: Shortness of breath. COMPARISON: CHEST 1 VIEW 12/10/2019 12:41 PM CHEST 2 VIEW 08/13/2019 1:39 PM. TECHNIQUE: 1 view. FINDINGS: Lungs/Pleura: Since 12/10/2019, further increase in density in the right lung base. Increased density in the left chest and right upper lobe appear similar. Mediastinum: Within exam limitations, the cardiomediastinal contour is normal. Other: None. IMPRESSION: 1. Since 12/10/2019, increase in density in the right lung base. 2. Increased density in the left chest and right upper lobe appears similar to previous. RADIA
[2019-12-11] MEDS: MORPHINE 2 MG/ML CARPUJECT IVP PRN ×3 (13:59→20:28)
[2019-12-12] MEDS: MORPHINE 2 MG/ML CARPUJECT IVP PRN ×4 (00:38→09:47)
[2019-12-12] MEDS: SODIUM CHLORIDE FLUSH 0.9% 10 ML SYRINGE IVP SCH ×3 (00:39→21:19)
[2019-12-12 05:44] LABS: BASOPHILS % (AUTO) 0.3 %; EOSINOPHILS # (AUTO) 0.1 10^3/uL (0.0-0.7); EOSINOPHILS % (AUTO) 2.5 %; HGB - HEMOGLOBIN 11.4 g/dL (12.0-16.0); LYMPHOCYTES % (AUTO) 24.6 %; MEAN CORPUSCULAR HEMOGLOBIN 31.2 pg (27.0-31.0); MEAN CORPUSCULAR HGB CONC 30.9 g/dL (32.0-36.0); MEAN CORPUSCULAR VOLUME 101.1 fL (81.0-99.0); MEAN PLATELET VOLUME 8.9 fL (7.9-10.8); MONOCYTES # (AUTO) 0.4 10^3/uL (0.0-1.0); NEUTROPHILS # (AUTO) 2.4 10^3/uL (1.5-6.6); NEUTROPHILS % (AUTO) 60.6 %; PLT - PLATELET COUNT 172 10^3/uL (130-450); RED BLOOD COUNT 3.65 10^6/uL (4.20-5.40); RED CELL DISTRIBUTION WIDTH 12.6 % (12.0-15.0)
[2019-12-12 05:57] LABS: ALBUMIN 2.6 g/dL (3.2-5.5); ALBUMIN/GLOBULIN RATIO 0.8 (1.0-2.2); BILIRUBIN,TOTAL 0.7 mg/dL (0.2-1.0); CALCIUM 8.1 mg/dL (8.5-10.3); CREATININE 1.1 mg/dL (0.4-1.0); TOTAL PROTEIN 5.7 g/dL (6.7-8.2)
[2019-12-12] MEDS: LEVOTHYROXINE 25 MCG TABLET PO SCH (06:07)
[2019-12-12] MEDS: cefTRIAXone 2 GM in SODIUM CHLORIDE 0.9% MINIBAG 100 ML IV SCH (08:13)
[2019-12-12] MEDS: SODIUM CHLORIDE 0.9% 1,000 ML IV SCH (08:13)
[2019-12-12] MEDS: ENOXAPARIN 40 MG/0.4 ML SYRINGE SUBQ SCH (08:14)
[2019-12-12] MEDS ORDERED: ACETAMINOPHEN 650 MG SUPP PR PRN (08:39)
[2019-12-12] MEDS: IPRATROPIUM/ALBUTEROL 3 ML NEB INH PRN ×2 (08:44→18:06)
[2019-12-12] MEDS ORDERED: VANCOMYCIN PER PHARMACY 1 GM in SODIUM CHLORIDE 0.9% 250 ML IV SCH (09:00)
[2019-12-12] MEDS: CEFEPIME 2 GM in SODIUM CHLORIDE 0.9% MINIBAG 100 ML IV SCH ×2 (09:50→20:18)
[2019-12-12] MEDS ORDERED: VANCOMYCIN INJ 2 GM in SODIUM CHLORIDE 0.9% 500 ML IV ONE (10:00)
[2019-12-12] MEDS: SACCHAROMYCES BOULARDII 250 MG CAPSULE PO SCH ×2 (10:20→19:16)
[2019-12-12] MEDS: METOPROLOL SUCCINATE 25 MG TABLET PO SCH (10:21)
[2019-12-12] MEDS: DOCUSATE SODIUM 250 MG CAPSULE PO SCH (10:21)
[2019-12-12] MEDS: FAMOTIDINE 20 MG TABLET PO SCH ×2 (10:21→20:18)
[2019-12-12] MEDS: polyethylene glycoL 3350 17 GM PACKET PO SCH (10:21)
[2019-12-12] MEDS: ASPIRIN CHEW 81 MG TABLET PO SCH (10:21)
[2019-12-12] MEDS: QUEtiapine 25 MG TABLET PO SCH ×2 (10:21→20:18)
[2019-12-12] MEDS: SENNA 8.6 MG TABLET PO SCH (10:22)
[2019-12-12] MEDS: traMADol 50 MG TABLET PO SCH ×2 (10:22→20:18)
--- NOTE | 2019-12-12 12:31 | PHARMACY PROGRESS NOTE ---
- Therapy Status Vancomycin regimen day #: 1 (Per protocol: Loading dose = 2 g IV x 1, Maintenance dose = 1.5 g IV q24h; Per [facility] vanco pharmacokinetic mult Ke calculation, dosing regimen would achieve trough of ~17) Therapy status: Awaiting steady state Basis for treatment: Empirical Treatment indication: HCAP per provider Trough goal: 15-20 Concurrent antibiotics: cefepime - KAVYA Risk Acute Kidney Injury risk factors: Baseline CrCl <50, Goal trough >15, Chronic baseline hypertension - Monitoring and Recommendation Clinical response to treatment: I&O Previous 24 hours 12/10/19 12/11/19 12/12/19 23:59 23:59 23:59 Intake Total 500 2453.75 1108.75 Output Total 200 1250 325 Balance 300 1203.75 783.75 Lab Results 12/12/19 12/11/19 12/10/19 05:25 05:10 13:20 BUN 21 H 28 H 38 H Creatinine 1.1 H 1.1 H 1.4 H Estimated GFR (MDRD) 48 L 48 L 36 L Cultures 12/10/19 12:55 Urine,Catheterized Urine Culture - Preliminary 12/10/19 13:20 Blood - Right Iv-Start Blood Culture - Preliminary NO GROWTH AFTER 1 DAY Monitoring plan: Daily serum creatinine Next trough due prior to maintenance dose #: 3 (Per protocol) Next trough due (date/time): 12/13 at 0930 Areas for additional monitoring: IV to PO when appropriate, Therapy de- escalation based on culture results, Acute Kidney Injury Pharmacy recommendation: Continue current regime
[2019-12-12] MEDS ORDERED: HYDROmorphone 1 MG/ML CARPUJECT IVP PRN (13:00)
--- NOTE | 2019-12-12 14:54 | PROVIDER PROGRESS NOTE ---
Assessment/Plan - Problem List (1) Altered mental status Qualifiers: Altered mental status type: transient alteration of awareness Qualified Code(s): R40.4 - Transient alteration of awareness Assessment/Plan: 12/11 pt remain confused. pt still has severe lung infection. will continue treat with antibiotics now, IVF gently, Covid 19 test is pending. 12/10, still confused. pt still has severe lung infection. continue treat with antibiotics, IVF gently, Covid 19 test is pending. pt is confusing. pt has hx of dementia and schizophrenia, and with acute pneumonia and UTI. pt dd not present unilateral focus neurological deficits. treat underline of infection with antibiotics, resume home quetiapine, neuro check (2) Atypical pneumonia Conclusion/Plan: 12/11 pt has lower degree fever and CXR reveals worsening. switch to more aggressive antibiotics treatment with Cefepime and Vancomycin, pt's Covid 19 test is still pending, continue gently IVF of NS, continue lab monitor pt's code status is DNR/DNI 12/10 present more respiratory distress. Lung sound is worsening with more crackles bilaterally, CXR reveal increase of bilateral density. continue treat bacteremian infection now, covid 19 is pending, continue supplement of O2 as needed pt was order Covid 19. pt has bilateral atypical pneumonia, elevated AST, D- dimer, and lower WBC, but pt has no fever now. pt present significant SOB, suspension COVID 19. will check CK, and PT/INR according to recent publication in [place] droplet precaution strictly, Covid 19 test is pending treat with antibiotics until Covid 19 result come back (3)fever 12/11 pt had 38.1 degree fever. pt is already on antibiotics treatment, she had blood culture is negative for bacteremia, it is likely not caused by bacterial. clinically indication pt might have virus lung infection. Covid 19 test is still in pending. At this point, continue antibiotics, Tylenol PRN (4) respiratory distress with hypoxia 12/11 condition is becoming worsening. consulted with RT, continue breath t reatment, supplement of O2 as needed. pt's code status is DNR/DNI 12/10 pt present more respiratory distress, RR increase. pt present 93% sats on 7 liter of O2 and worsening than yesterday. CXR reveal increase of bilateral density continue to treat with antibiotics now, continue support and IV of NS gently. Covid 19 is pending. (5) UTI (urinary tract infection) Conclusion/Plan: route lab test indicate UTI. UA analysis is pending now, will treat with Rocep hin (6) COPD (chronic obstructive pulmonary disease) Conclusion/Plan: CXR reveals pt's pulmonary distress is likely from lung infection. PRN for albuterol and Duoneb. supplement of O2 as needed (7) Schizophrenia Conclusion/Plan: pt is confusing, resume home Quetiapine now (8) HTN (hypertension) Conclusion/Plan: stable, will resume home BP meds, BP monitor (9) Hypothyroidism Conclusion/Plan: resume home Levothyroxine and check TSH (10) Hx of myocardial infarction Conclusion/Plan: pt has no chest pain, will check troponin. resume home Aspirin and nitro PRN (11) Dementia Conclusion/Plan: pt has hx of dementia, will continue support (3) UTI (urinary tract infection) Qualifiers: Urinary tract infection type: acute cystitis Hematuria presence: without hematuria Qualified Code(s): N30.00 - Acute cystitis without hematuria - Current Meds Current Meds: Current Medications Generic Name Dose Route Start Last Admin Trade Name Freq PRN Reason Stop Dose Admin Acetaminophen 650 mg 12/12/19 08:39 12/12/19 09:45 Tylenol IA 650 mg Q6HR PRN Administration Pain or Fever > 38C (100.4F) Albuterol/Ipratropium 3 ml 12/10/19 16:36 12/12/19 08:44 Duoneb INH 3 ml RTQID PRN Administration Shortness of Air/Wheezing Aspirin 81 mg 12/11/19 09:00 12/12/19 10:21 [facility] [place] Aspirin PO Not Given DAILY [facility] Docusate Sodium 250 - 500 mg 12/12/19 09:00 12/12/19 10:21 Colace 250mg Capsule PO Not Given DAILY TERRA Enoxaparin Sodium 40 mg 12/12/19 09:00 12/12/19 08:14 Lovenox SUBQ 40 mg DAILY [facility] Administration Famotidine 10 mg 12/10/19 21:00 12/12/19 10:21 Pepcid PO Not Given BID TERRA Hydromorphone HCl 1 mg 12/12/19 13:00 12/12/19 12:41 Dilaudid Inj Carp IVP 1 mg Q4HR PRN Administration PAIN Sodium Chloride 1,000 mls @ 75 mls/hr 12/10/19 16:00 12/12/19 08:13 Normal Saline 0.9% IV 75 mls/hr .[id number] TERRA Administration Cefepime HCl 2 gm/ Sodium 100 mls @ 200 mls/hr 12/12/19 09:20 12/12/19 10:23 Chloride IV Infused BID [facility] Infusion Levothyroxine Sodium 50 mcg 12/11/19 07:00 12/12/19 06:07 Synthroid PO Not Given [id number] [facility] Metoprolol Succinate 25 mg 12/11/19 09:00 12/12/19 10:21 Toprol Xl PO Not Given DAILY [facility] Polyethylene Glycol 17 gm 12/12/19 09:00 12/12/19 10:21 Miralax PO Not Given DAILY [facility] Quetiapine Fumarate 75 mg 12/10/19 21:00 12/12/19 10:21 Seroquel PO Not Given BID [facility] Saccharomyces Boulardii 250 mg 12/10/19 17:00 12/12/19 10:20 Florastor PO Not Given BIDWM [facility] Senna 8.6 - 17.2 mg 12/12/19 09:00 12/12/19 10:22 Senokot PO Not Given DAILY [facility] Sodium Chloride 10 ml 12/10/19 17:00 12/12/19 00:39 Normal Saline Flush 0.9% IVP 10 ml 0100,0900,1700 [facility] Administration Tramadol HCl 25 mg 12/10/19 21:00 12/12/19 10:22 Ultram PO Not Given BID [facility] - Lab Result Fish Bone Diagrams: 12/12/19 05:25 12/12/19 05:25 - Additional Planning My Orders: My Active Orders 12/11/19 14:14 Code Status [OTHERS] Routine 12/12/19 08:39 Acetaminophen [Tylenol] 650 mg IA Q6HR PRN 12/12/19 09:00 Docusate Sodium 250Mg Capsule [Colace 250Mg Capsule] 250 - 500 mg PO DAILY Enoxaparin [Lovenox] 40 mg SUBQ DAILY Senna [Senokot] 8.6 - 17.2 mg PO DAILY polyethylene glycoL 3350 [Miralax] 17 gm PO DAILY 12/12/19 09:20 Cefepime 2 gm Sodium Chloride 0.9% Minibag [Normal Saline 0.9% Minibag] 100 ml IV BID 12/12/19 13:00 HYDROmorphone INJ CARP [Dilaudid Inj Carp] 1 mg IVP Q4HR PRN 12/13/19 05:00 CBC - COMP BLD CT W/AUTO DIFF [HEME] DAILYLAB CMP [COMPREHENSIVE METABOLIC PANEL] [CHEM] DAILYLAB CRP - C-REACTIVE PROTEIN [CHEM] DAILYLAB 12/13/19 10:00 Vancomycin Inj [Vancomycin] 1.5 gm Sodium Chloride 0.9% [Normal Saline 0.9%] 500 ml IV Q24H 12/14/19 05:00 CBC - COMP BLD CT W/AUTO DIFF [HEME] DAILYLAB CMP [COMPREHENSIVE METABOLIC PANEL] [CHEM] DAILYLAB CRP - C-REACTIVE PROTEIN [CHEM] DAILYLAB 12/14/19 07:00 Levothyroxine [Synthroid] 100 mcg PO Foley@0700 12/14/19 09:30 VANCOMYCIN TROUGH [CHEM] Timed 12/15/19 05:00 CBC - COMP BLD CT W/AUTO DIFF [HEME] DAILYLAB CMP [COMPREHENSIVE METABOLIC PANEL] [CHEM] DAILYLAB CRP - C-REACTIVE PROTEIN [CHEM] DAILYLAB 12/16/19 05:00 CRP - C-REACTIVE PROTEIN [CHEM] DAILYLAB Subjective - Subjective Patient Reports: Cough Objective Vital Signs: Vital Signs - 24 hr 12/11/19 12/11/19 12/11/19 16:09 16:30 17:46 Temperature 37.8 C H Heart Rate Heart Rate [ 84 Monitoring electrodes] Respiratory 26 H 26 H 24 Rate Blood Pressure 136/79 H [Left Brachial artery] O2 Saturation 97 93 12/11/19 12/11/19 12/11/19 18:44 20:09 20:15 Temperature 37.2 C Heart Rate 86 Heart Rate [ 86 Monitoring electrodes] Respiratory 22 27 H 27 H Rate Blood Pressure 107/59 L [Left Brachial artery] O2 Saturation 89 L 12/12/19 12/12/19 12/12/19 00:03 03:42 08:12 Temperature 36.9 C 36.5 C Heart Rate Heart Rate [ 86 89 88 Monitoring electrodes] Respiratory 26 H 24 24 Rate Blood Pressure 124/67 112/89 H 138/93 H [Left Brachial artery] O2 Saturation 95 90 L 86 L 12/12/19 12/12/19 12/12/19 08:20 08:51 10:59 Temperature 38.1 C H 37.3 C Heart Rate 94 Heart Rate [ Monitoring electrodes] Respiratory 24 24 Rate Blood Pressure [Left Brachial artery] O2 Saturation 87 L 12/12/19 12:45 Temperature 37.4 C Heart Rate Heart Rate [ 89 Monitoring electrodes] Respiratory 16 Rate Blood Pressure 120/70 [Left Brachial artery] O2 Saturation 86 L Oxygen O2 Source Oxymask I&O (Last 24 Hrs): Intake and Output Totals x24h 12/10/19 12/11/19 12/12/19 23:59 23:59 23:59 Intake Total 500 2453.75 1608.75 Output Total 200 1250 625 Balance 300 1203.75 983.75 General: Alert, Moderate distress HEENT: Atraumatic Neck: Supple Lymphatic: no adenopathy Neuro: Alert, Disoriented Cardiovascular: Regular rate Respiratory: Chest non-tender, Rales, Rhonchi Abdomen: Normal bowel sounds, Soft Extremities: Normal pulses - Results Results: Laboratory Results WBC 4.0 x10^3/uL (4.8-10.8) L 12/12/19 05:25 RBC 3.65 10^6/uL (4.20-5.40) L 12/12/19 05:25 Hgb 11.4 g/dL (12.0-16.0) L 12/12/19 05:25 Hct 36.9 % (37.0-47.0) L 12/12/19 05:25 MCV 101.1 fL (81.0-99.0) H 12/12/19 05:25 MCH 31.2 pg (27.0-31.0) H 12/12/19 05:25 MCHC 30.9 g/dL (32.0-36.0) L 12/12/19 05:25 RDW 12.6 % (12.0-15.0) 12/12/19 05:25 Plt Count 172 10^3/uL (130-450) 12/12/19 05:25 MPV 8.9 fL (7.9-10.8) 12/12/19 05:25 Neut # (Auto) 2.4 10^3/uL (1.5-6.6) 12/12/19 05:25 Lymph # (Auto) 1.0 10^3/uL (1.5-3.5) L 12/12/19 05:25 [place] # (Auto) 0.4 10^3/uL (0.0-1.0) 12/12/19 05:25 Eos # (Auto) 0.1 10^3/uL (0.0-0.7) 12/12/19 05:25 Baso # (Auto) 0.0 10^3/uL (0.0-0.1) 12/12/19 05:25 Absolute Nucleated RBC 0.00 x10^3/uL 12/12/19 05:25 Nucleated RBC % 0.0 /100WBC 12/12/19 05:25 Manual Slide Review Indicated 12/10/19 13:20 RBC Morph Micro Appear 1+ ANISOCYTOSIS (NORMAL) 12/10/19 13:20 PT 13.0 secs (9.9-12.6) H 12/11/19 05:10 INR 1.2 (0.8-1.2) 12/11/19 05:10 D-Dimer 374.9 ng/mL (200.0-255.0) H 12/10/19 13:20 Sodium 140 mmol/L (135-145) 12/12/19 05:25 Potassium 4.5 mmol/L (3.5-5.0) 12/12/19 05:25 Chloride 111 mmol/L (101-111) 12/12/19 05:25 Carbon Dioxide 23 mmol/L (21-32) 12/12/19 05:25 Anion Gap 6.0 (6-13) 12/12/19 05:25 BUN 21 mg/dL (6-20) H 12/12/19 05:25 Creatinine 1.1 mg/dL (0.4-1.0) H 12/12/19 05:25 Estimated GFR (MDRD) 48 (>89) L 12/12/19 05:25 Glucose 78 mg/dL (70-100) 12/12/19 05:25 Glycated Hemoglobin 6.1 % (4.6-6.2) 12/11/19 05:10 Estim Average Glucose 128 (70-100) H 12/11/19 05:10 Lactic Acid 1.1 mmol/L (0.5-2.2) 12/10/19 13:20 Calcium 8.1 mg/dL (8.5-10.3) L 12/12/19 05:25 Magnesium 2.0 mg/dL (1.7-2.8) 12/11/19 05:10 Total Bilirubin 0.7 mg/dL (0.2-1.0) 12/12/19 05:25 AST 46 IU/L (10-42) H 12/12/19 05:25 ALT 19 IU/L (10-60) 12/12/19 05:25 Alkaline Phosphatase 54 IU/L (42-121) 12/12/19 05:25 Total Creatine Kinase 512 IU/L (22-269) H 12/11/19 05:10 Troponin I High Sens 21.7 ng/L (2.3-14.8) H* 12/10/19 22:06 B-Natriuretic Peptide 39 pg/mL (5-100) 12/10/19 13:20 Total Protein 5.7 g/dL (6.7-8.2) L 12/12/19 05:25 Albumin 2.6 g/dL (3.2-5.5) L 12/12/19 05:25 Globulin 3.1 g/dL (2.1-4.2) 12/12/19 05:25 Albumin/Globulin Ratio 0.8 (1.0-2.2) L 12/12/19 05:25 Lipase 47 U/L (22-51) 12/10/19 13:20 TSH 1.76 uIU/mL (0.34-5.60) 12/11/19 05:10 Urine Color DARK YELLOW 12/10/19 12:55 Urine Clarity CLEAR (CLEAR) 12/10/19 12:55 Urine pH 5.5 PH (5.0-7.5) 12/10/19 12:55 Ur Specific [place] 1.025 (1.002-1.030) 12/10/19 12:55 Urine Protein TRACE mg/dL (NEGATIVE) 12/10/19 12:55 Urine Glucose (UA) NEGATIVE mg/dL (NEGATIVE) 12/10/19 12:55 Urine Ketones NEGATIVE mg/dL (NEGATIVE) 12/10/19 12:55 Urine Occult Blood NEGATIVE (NEGATIVE) 12/10/19 12:55 Urine Nitrite POSITIVE (NEGATIVE) H 12/10/19 12:55 Urine Bilirubin NEGATIVE (NEGATIVE) 12/10/19 12:55 Urine Urobilinogen 0.2 (NORMAL) E.U./dL (NORMAL) 12/10/19 12:55 Ur Leukocyte Esterase TRACE (NEGATIVE) H 12/10/19 12:55 Urine RBC 0-5 /HPF (0-5) 12/10/19 12:55 Urine WBC 11-25 /HPF (0-5) H 12/10/19 12:55 Ur Squamous Epith Cells FEW Squamous (<= Few) 12/10/19 12:55 Urine Bacteria Many /HPF (None Seen) H 12/10/19 12:55 Ur Microscopic Review INDICATED 12/10/19 12:55 Urine Culture Comments INDICATED 12/10/19 12:55 Influenza A (Rapid) Negative (Negative) 12/10/19 13:20 Influenza B (Rapid) Negative (Negative) 12/10/19 13:20 - Procedures Procedures: Procedures INJECT/INFUSE THROMBOLYTIC AGENT (04/07/13) VENOUS CATHETERIZATION NEC (04/07/13) ABX Reporting Has patient been on IV antibiotics over the past 48 hours?: Yes Current Medications - Current Medications Current Medications: Active Medications Acetaminophen (Tylenol) 650 mg IA Q6HR PRN PRN Reason: Pain or Fever > 38C (100.4F) Last Admin: 12/12/19 09:45 Dose: 650 mg Albuterol () 2.5 mg INH RTQ4H PRN PRN Reason: Wheezing Albuterol/Ipratropium (Duoneb) 3 ml INH RTQID PRN PRN Reason: Shortness of Air/Wheezing Last Admin: 12/12/19 08:44 Dose: 3 ml Aspirin ([facility] [place] Aspirin) 81 mg PO DAILY [facility] Last Admin: 12/12/19 10:21 Dose: Not Given Docusate Sodium (Colace 250mg Capsule) 250 - 500 mg PO DAILY [facility] Last Admin: 12/12/19 10:21 Dose: Not Given Enoxaparin Sodium (Lovenox) 40 mg SUBQ DAILY [facility] Last Admin: 12/12/19 08:14 Dose: 40 mg Famotidine (Pepcid) 10 mg PO BID [facility] Last Admin: 12/12/19 10:21 Dose: Not Given Hydromorphone HCl (Dilaudid Inj Carp) 1 mg IVP Q4HR PRN PRN Reason: PAIN Last Admin: 12/12/19 12:41 Dose: 1 mg Sodium Chloride (Normal Saline 0.9%) 1,000 mls @ 75 mls/hr IV .[id number] [facility] Last Admin: 12/12/19 08:13 Dose: 75 mls/hr Cefepime HCl 2 gm/ Sodium (Chloride) 100 mls @ 200 mls/hr IV BID [facility] Last Infusion: 12/12/19 10:23 Dose: Infused Vancomycin HCl 1.5 gm/ Sodium (Chloride) 500 mls @ 250 mls/hr IV Q24H [facility] Levothyroxine Sodium (Synthroid) 100 mcg PO Foley@0700 [facility] Levothyroxine Sodium (Synthroid) 50 mcg PO MoTuWeThFrSa@0700 [facility] Last Admin: 12/12/19 06:07 Dose: Not Given Metoprolol Succinate (Toprol Xl) 25 mg PO DAILY [facility] Last Admin: 12/12/19 10:21 Dose: Not Given Nitroglycerin (Nitrostat) 0.4 mg SL Q5MIN PRN PRN Reason: Chest Pain Ondansetron HCl (Zofran Inj) 4 mg IVP Q6HR PRN PRN Reason: Nausea / Vomiting Polyethylene Glycol (Miralax) 17 gm PO DAILY [facility] Last Admin: 12/12/19 10:21 Dose: Not Given Quetiapine Fumarate (Seroquel) 75 mg PO BID [facility] Last Admin: 12/12/19 10:21 Dose: Not Given Saccharomyces Boulardii (Florastor) 250 mg PO BIDWM [facility] Last Admin: 12/12/19 10:20 Dose: Not Given Senna (Senokot) 8.6 - 17.2 mg PO DAILY [facility] Last Admin: 12/12/19 10:22 Dose: Not Given Sodium Chloride (Normal Saline Flush 0.9%) 10 ml IVP PRN PRN PRN Reason: NEEDED PER PROVIDER ORDERS Sodium Chloride (Normal Saline Flush 0.9%) 10 ml IVP 0100,0900,1700 [facility] Last Admin: 12/12/19 15:05 Dose: Not Given Tramadol HCl (Ultram) 25 mg PO BID [facility] Last Admin: 12/12/19 10:22 Dose: Not Given Aspirin Chewable [[facility] [place] Aspirin] 81 mg PO DAILY 01/14/18 Levothyroxine Sodium [Synthroid] 50 mcg PO [id number] 01/14/18 Levothyroxine Sodium [Synthroid] 100 mcg PO FOLEY 01/14/18 Metoprolol Succinate [Toprol Xl] 25 mg PO DAILY 01/14/18 Saccharomyces Boulardii [Florastor] 250 mg PO DAILY 01/14/18 traMADol [Ultram] 25 mg PO BID 01/14/18 Acetaminophen [Tylenol Extra Strength] 1,000 mg PO TID 12/10/19 Ipratropium/Albuterol Sulfate [Iprat-Albut 0.5-3(2.5) mg/3 ml] 3 ml IH Q6H PRN 12/10/19 Melatonin 3 mg PO QPM 12/10/19 Menthol [Cough Drops] 1 brynn MM Q2H PRN 12/10/19 Mirabegron [Myrbetriq] 25 mg PO DAILY 12/10/19 Nitroglycerin [Nitrostat] 0.4 mg SL Q5MIN PRN 12/10/19 Quetiapine Fumarate 75 mg PO BID 12/10/19 Valsartan 40 mg PO DAILY 12/10/19
[2019-12-12] MEDS ORDERED: MORPHINE 2 MG/ML CARPUJECT IVP PRN ×2 (17:57→18:16)
[2019-12-12] MEDS ORDERED: HALOPERIDOL 5 MG/ML VIAL IVP ONE (20:22)
[2019-12-12] MEDS ORDERED: FUROSEMIDE 40 MG/4 ML VIAL IVP STA (21:01)
[2019-12-12] MEDS ORDERED: AZITHROMYCIN INJ 250 MG in SODIUM CHLORIDE 0.9% 250 ML IV SCH ×4 (22:00)
--- NOTE | 2019-12-13 00:33 | PROVIDER PROGRESS NOTE ---
Spring Former Machine Note - Spring Former Machine Note Spring Former Machine Note: Overnight, the patient became increasingly hypoxic saturating 88% on 15 L via nonrebreather mask. The patient is a DNR/DNI and so intubation is not an option. She is being treated for pneumonia and possible COVID-19. Her x-ray today showed worsening bilateral infiltrates. Trial with the patient on BiPAP given her hypoxia and on FiO2 of 80% and 13/5, her saturations were around 94%. Unfortunately, the patient became more agitated with a BiPAP on and kept pulling at the mask and she pulled the tubing twice. I discussed with her guardian, Anabell, her current condition. I informed her that given she is a DNR/DNI, her only 2 options are BiPAP or nonrebreather mask. I informed her that although her oxygen saturations are better on BiPAP, she is not tolerating it well and is making her more agitated. I also told Anabell that her oxygen durations are not adequate on just a nonrebreather mask as she is saturating 88%. I discussed her overall decline over these past few days despite us treating her for pneumonia. Anabell stated that she would like us to focus more on comfort and therefore she would prefer a nonrebreather mask to the BiPAP since it is making her agitated. Anabell stated she will speak with her family to update them on the patient's me dical condition. This time, we will keep her on med surge and continue the nonrebreather mask at 15 L. Her oxygen saturations are 88%. I do not feel repeating an x-ray would be of benefit given she had 1 2 days ago that showed worsening bilateral infiltrates. Her BNP was normal on admission but I did discontinue her IV fluids and gave her a one-time dose of Lasix 40 mg IV. She was started on vancomycin and cefepime IV yesterday and I will resume azithromycin as this was discontinued to cover for atypicals. We will continue to monitor her respiratory status.
[2019-12-13] MEDS ORDERED: MORPHINE 2 MG/ML CARPUJECT IVP STA (00:48)
[2019-12-13] MEDS: SODIUM CHLORIDE FLUSH 0.9% 10 ML SYRINGE IVP SCH ×4 (00:56→21:11)
[2019-12-13] MEDS: MORPHINE 2 MG/ML CARPUJECT IVP PRN ×2 (03:56→08:31)
--- NOTE | 2019-12-13 04:16 | XRAY Report ---
Reason: Abdominal pain. Constipation. Procedure Date: 12/13/2019 Accession Number: [id number] / [id number] Procedure: XR - Abdomen 1 View X-Ray CPT Code: 78503 Final Report FULL RESULT: EXAM: ABDOMEN RADIOGRAPHY EXAM DATE: 12/13/2019 03:31 AM. CLINICAL HISTORY: Abdominal pain. Constipation. COMPARISON: CHEST 1 VIEW 12/11/2019 1:17 PM CHEST 1 VIEW 12/10/2019 12:41 PM. TECHNIQUE: 1 view of chest and 2 views of abdomen. FINDINGS: Lungs: Diffuse interstitial opacities in the lungs, most prominent at left base. No pleural effusion or pneumothorax. Mild elevation of right hemidiaphragm. Mediastinum: Mild cardiac silhouette enlargement. Atherosclerosis along thoracic aorta. Bowel Gas Pattern: Nonspecific bowel gas pattern. No significantly dilated small bowel loops evident. Air-filled colon present in mid abdomen. Other: None. IMPRESSION: 1. Nonspecific bowel gas pattern. No radiographic evidence of SBO. 2. Diffuse interstitial opacities in the lungs, stable compared to prior CXR. RADIA
[2019-12-13] MEDS: IPRATROPIUM/ALBUTEROL 3 ML NEB INH PRN (04:47)
[2019-12-13] MEDS: HALOPERIDOL 5 MG/ML VIAL IVP PRN ×2 (05:01→09:25)
[2019-12-13 05:35] LABS: BASOPHILS % (AUTO) 0.2 %; EOSINOPHILS % (AUTO) 0.8 %; HGB - HEMOGLOBIN 11.1 g/dL (12.0-16.0); LYMPHOCYTES # (AUTO) 0.7 10^3/uL (1.5-3.5); LYMPHOCYTES % (AUTO) 15.4 %; MEAN CORPUSCULAR HEMOGLOBIN 30.7 pg (27.0-31.0); MEAN CORPUSCULAR HGB CONC 30.9 g/dL (32.0-36.0); MEAN CORPUSCULAR VOLUME 99.4 fL (81.0-99.0); MEAN PLATELET VOLUME 8.9 fL (7.9-10.8); MONOCYTES # (AUTO) 0.5 10^3/uL (0.0-1.0); MONOCYTES % (AUTO) 10.6 %; NEUTROPHILS # (AUTO) 3.4 10^3/uL (1.5-6.6); NEUTROPHILS % (AUTO) 71.5 %; PLT - PLATELET COUNT 199 10^3/uL (130-450); RED BLOOD COUNT 3.61 10^6/uL (4.20-5.40); RED CELL DISTRIBUTION WIDTH 12.6 % (12.0-15.0); WHITE BLOOD COUNT 4.8 x10^3/uL (4.8-10.8)
[2019-12-13 06:06] LABS: ALBUMIN 2.8 g/dL (3.2-5.5); ALBUMIN/GLOBULIN RATIO 0.8 (1.0-2.2); BILIRUBIN,TOTAL 0.9 mg/dL (0.2-1.0); CALCIUM 8.3 mg/dL (8.5-10.3); CREATININE 1.3 mg/dL (0.4-1.0); CRP - C-REACTIVE PROTEIN 20.5 mg/dL (0-1.0); TOTAL PROTEIN 6.2 g/dL (6.7-8.2)
[2019-12-13] MEDS: CEFEPIME 2 GM in SODIUM CHLORIDE 0.9% MINIBAG 100 ML IV SCH (08:35)
[2019-12-13] MEDS: ENOXAPARIN 40 MG/0.4 ML SYRINGE SUBQ SCH (08:39)
[2019-12-13] MEDS ORDERED: CARBOXYMETHYLCELLULOSE OPHTH DROPS EACHEYE PRN (08:55)
[2019-12-13] MEDS ORDERED: GI COCKTAIL 120 ML BOTTLE PO PRN (08:55)
[2019-12-13] MEDS ORDERED: LORazepam 1 MG TABLET PO PRN (08:55)
[2019-12-13] MEDS ORDERED: ACETAMINOPHEN 650 MG SUPP PR PRN (08:55)
[2019-12-13] MEDS ORDERED: GLYCOPYRROLATE 1 MG/5 ML VIAL SUBQ PRN (08:55)
[2019-12-13] MEDS ORDERED: HYDROmorphone 2 MG TABLET PO PRN (09:05)
[2019-12-13] MEDS ORDERED: SODIUM CHLORIDE 0.9% 1,000 ML IV ONE (09:19)
[2019-12-13] MEDS: HYDROmorphone 0.5 MG/0.5 ML SYRINGE IVP PRN ×2 (09:24→21:10)
[2019-12-13] MEDS ORDERED: VANCOMYCIN INJ 1.5 GM in SODIUM CHLORIDE 0.9% 500 ML IV SCH (10:00)
[2019-12-13] MEDS: DOCUSATE SODIUM 250 MG CAPSULE PO SCH (12:58)
[2019-12-13] MEDS: polyethylene glycoL 3350 17 GM PACKET PO SCH (12:58)
[2019-12-13] MEDS: QUEtiapine 25 MG TABLET PO SCH ×2 (12:58→21:10)
[2019-12-13] MEDS: SENNA 8.6 MG TABLET PO SCH (12:58)
[2019-12-13] MEDS: traMADol 50 MG TABLET PO SCH ×2 (12:58→21:10)
[2019-12-13] MEDS: LORazepam 2 MG/ML VIAL IVP PRN ×2 (13:40→18:51)
--- NOTE | 2019-12-13 15:33 | PROVIDER PROGRESS NOTE ---
Subjective - Prog Note Date Prog Note Date: 12/13/19 Prog Note Time: 15:30 - Subjective Subjective: Refer to dope sprayer note for overnight events. Pt reports feeling "bad." Denies abdominal or chest pain but per RN, pt has been holding her abdomen as if in pain in the AM. She remains confused. O2 saturation in 80s despite 15L NRB. Intermittently pulling off oxygen mask and at lines. Updated guardian Anabell this AM regarding persistent hypoxemia and confusion, who declined restraint use and opted for transition to comfort care Current Medications - Current Medications Current Medications: Acetaminophen (Tylenol) 650 mg FL Q6HR PRN PRN Reason: Pain or Fever > 38C (100.4F) Last Admin: 12/12/19 09:45 Dose: 650 mg Acetaminophen (Tylenol) 650 mg FL Q4H PRN PRN Reason: Fever >101 Albuterol () 2.5 mg INH RTQ4H PRN PRN Reason: Wheezing Albuterol/Ipratropium (Duoneb) 3 ml INH RTQID PRN PRN Reason: Shortness of Air/Wheezing Last Admin: 12/13/19 04:47 Dose: 3 ml Atropine Sulfate (Isopto Atropine 1% Ophth Drops) 1 - 4 drops SL Q2H PRN PRN Reason: Excessive secretions Carboxymethylcellulose (Refresh 1% Ophth Drops) 1 drops EACHEYE QID PRN PRN Reason: Dry Eye Docusate Sodium (Colace 250mg Capsule) 250 - 500 mg PO DAILY TERRA Last Admin: 12/13/19 12:58 Dose: Not Given Glycopyrrolate (Robinul) 0.2 mg SUBQ Q4H PRN PRN Reason: Excessive secretions Haloperidol (Haldol Inj) 1 mg IVP Q6H PRN PRN Reason: Agitation Last Admin: 12/13/19 09:25 Dose: 1 mg Haloperidol (Haldol Inj) 0.5 mg IVP Q2H PRN PRN Reason: Agitation Hydromorphone HCl (Dilaudid) 2 mg PO Q4HR PRN PRN Reason: Shortness of Air/Wheezing Hydromorphone HCl (Dilaudid Inj Syringe) 0.5 mg IVP Q2H PRN PRN Reason: PAIN OR SHORTNESS OF BREATH Last Admin: 12/13/19 09:24 Dose: 0.5 mg Lorazepam (Ativan) 1 mg PO Q6H PRN PRN Reason: Anxiety/Agitation Lorazepam (Ativan Inj (Vial)) 1 mg IVP Q6H PRN PRN Reason: Anxiety/Agitation Last Admin: 12/13/19 13:40 Dose: 1 mg Multi-Ingredient Mouthwash/Gargle () 5 ml PO Q2H PRN PRN Reason: Mucositis Ondansetron HCl (Zofran Inj) 4 mg IVP Q6HR PRN PRN Reason: Nausea / Vomiting Polyethylene Glycol (Miralax) 17 gm PO DAILY [facility] Last Admin: 12/13/19 12:58 Dose: Not Given Quetiapine Fumarate (Seroquel) 75 mg PO BID [facility] Last Admin: 12/13/19 12:58 Dose: Not Given Senna (Senokot) 8.6 - 17.2 mg PO DAILY [facility] Last Admin: 12/13/19 12:58 Dose: Not Given Sodium Chloride (Normal Saline Flush 0.9%) 10 ml IVP PRN PRN PRN Reason: NEEDED PER PROVIDER ORDERS Sodium Chloride (Normal Saline Flush 0.9%) 10 ml IVP 0100,0900,1700 [facility] Last Admin: 12/13/19 13:41 Dose: 10 ml Tramadol HCl (Ultram) 25 mg PO BID [facility] Last Admin: 12/13/19 12:58 Dose: Not Given Objective - Vital Signs/Intake & Output Vital Signs: Vital Signs x48h Temp Pulse Pulse Resp BP Pulse Ox 12/13/19 13:23 38 C H 110 H 24 91 L 12/13/19 08:42 38.0 C H 110 H 24 141/72 H 85 L Intake & Output: Intake & Output 12/10/19 12/11/19 12/12/19 12/13/19 23:59 23:59 23:59 23:59 Intake Total 500 2453.75 2917.50 141.25 Output Total 200 1250 1875 950 Balance 300 1203.75 1042.50 -808.75 - Objective General Appearance: positive: Lethargic Eyes Bilateral: positive: EOMI, No scleral icterus Respiratory: positive: Rhonchi, Other (Tachypnea) Cardiovascular: positive: Tachycardia (Regular rhythm) Abdomen: positive: Non-tender, No distention, Other (Soft) Skin: positive: No rash Extremities: positive: No pedal edema Neurologic/Psychiatric: positive: Slurred/abnml speech, Other (Disoriented to place, time, and situation) - Lab Results Fish Bones: 12/13/19 05:20 12/13/19 05:20 Other Labs: Lab Results x24hrs 12/13/19 12/13/19 Range/Units 05:20 05:20 WBC 4.8 (4.8-10.8) x10^3/uL RBC 3.61 L (4.20-5.40) 10^6/uL Hgb 11.1 L (12.0-16.0) g/dL Hct 35.9 L (37.0-47.0) % MCV 99.4 H (81.0-99.0) fL MCH 30.7 (27.0-31.0) pg MCHC 30.9 L (32.0-36.0) g/dL RDW 12.6 (12.0-15.0) % Plt Count 199 (130-450) 10^3/uL MPV 8.9 (7.9-10.8) fL Neut # (Auto) 3.4 (1.5-6.6) 10^3/uL Lymph # (Auto) 0.7 L (1.5-3.5) 10^3/uL [facility] # (Auto) 0.5 (0.0-1.0) 10^3/uL Eos # (Auto) 0.0 (0.0-0.7) 10^3/uL Baso # (Auto) 0.0 (0.0-0.1) 10^3/uL Absolute Nucleated RBC 0.00 x10^3/uL Nucleated RBC % 0.0 /100WBC Sodium 143 (135-145) mmol/L Potassium 3.8 (3.5-5.0) mmol/L Chloride 112 H (101-111) mmol/L Carbon Dioxide 21 (21-32) mmol/L Anion Gap 10.0 (6-13) BUN 21 H (6-20) mg/dL Creatinine 1.3 H (0.4-1.0) mg/dL Estimated GFR (MDRD) 39 L (>89) Glucose 108 H (70-100) mg/dL Calcium 8.3 L (8.5-10.3) mg/dL Total Bilirubin 0.9 (0.2-1.0) mg/dL AST 48 H (10-42) IU/L ALT 19 (10-60) IU/L Alkaline Phosphatase 60 (42-121) IU/L C-Reactive Protein 20.5 H (0-1.0) mg/dL Total Protein 6.2 L (6.7-8.2) g/dL Albumin 2.8 L (3.2-5.5) g/dL Globulin 3.4 (2.1-4.2) g/dL Albumin/Globulin Ratio 0.8 L (1.0-2.2) - Diagnostic Imaging Diagnostic Imaging Results: positive: Final report reviewed, Other (Personally reviewed KUB--air filled colon but no SBO) ABX Reporting Has patient been on IV antibiotics over the past 48 hours?: Yes Assessment/Plan - Problem List (1) Acute hypoxemic respiratory failure Impression: Significant worsening in the past 24 hours. Did not tolerate BIPAP trial. Persistent hypoxemia despite 15L NRB, so guardian Anabell opted to initiate comfort care measures on AM of 12/13/2019 Plan: -D/C IV broad spectrum antibiotics -F/U COVID 19 -Comfort care measures initiated -Hospice referral placed -Discussed with case management. Pending possible D/C back to SNF complicated by pending COVID 19 results for this patient in addition to known positive COVID patients at SNF. SNF awaiting recommendations from [facility] (2) Sepsis Impression: Identified on 12/12 at 1530. Tachycardia, tachypnea, fever suspect due to PNA (bacterial vs. viral e.g. ?COVID 19) +/- UTI. Already on comfort care measures. Qualifiers: Sepsis type: sepsis due to unspecified organism Sepsis acute organ dysfunction status: with acute organ dysfunction Acute respiratory failure type: with hypoxia Severe sepsis shock status: without septic shock (3) UTI (urinary tract infection) Impression: Plan: -Comfort care measures -F/U urine culture Qualifiers: Urinary tract infection type: acute cystitis Hematuria presence: without hematuria Qualified Code(s): N30.00 - Acute cystitis without hematuria (4) Atypical pneumonia Impression: Plan: -Comfort care -F/U COVID 19 (5) COPD (chronic obstructive pulmonary disease) Impression: Exacerbation due to pneumonia as above Plan: -PRN bronchodilators -Comfort care Qualifiers: COPD type: COPD with acute exacerbation Qualified Code(s): J44.1 - Chronic obstructive pulmonary disease with (acute) exacerbation (6) Altered mental status Impression: Suspect due to acute illness in setting of dementia and schizophrenia. Most consistent with acute metabolic/septic encephalopathy Plan: -Comfort care measures as above -PRN Haldol -Continue home Seroquel -Change IV morphine to Dialudid in setting of CKD Qualifiers: Altered mental status type: transient alteration of awareness Qualified Code(s): R40.4 - Transient alteration of awareness
[2019-12-14 00:47] VITALS: BP 108/51
[2019-12-14] MEDS: SODIUM CHLORIDE FLUSH 0.9% 10 ML SYRINGE IVP SCH ×2 (00:52→19:37)
[2019-12-14] MEDS: HYDROmorphone 0.5 MG/0.5 ML SYRINGE IVP PRN ×5 (00:52→19:37)
[2019-12-14] MEDS: SODIUM CHLORIDE FLUSH 0.9% 10 ML SYRINGE IVP PRN ×5 (00:53→13:36)
[2019-12-14] MEDS: HALOPERIDOL 5 MG/ML VIAL IVP PRN ×2 (00:53→10:06)
[2019-12-14] MEDS: LORazepam 2 MG/ML VIAL IVP PRN ×3 (04:41→19:57)
[2019-12-14] MEDS: IPRATROPIUM/ALBUTEROL 3 ML NEB INH PRN (04:59)
[2019-12-14] MEDS ORDERED: LEVOTHYROXINE 100 MCG TABLET PO SCH (07:00)
[2019-12-14] MEDS: ATROPINE 1% OPHTH DROPS 2 ML SL PRN ×2 (10:08→13:38)
[2019-12-14] MEDS: QUEtiapine 25 MG TABLET PO SCH ×2 (10:33→21:19)
[2019-12-14] MEDS: DOCUSATE SODIUM 250 MG CAPSULE PO SCH (10:33)
[2019-12-14] MEDS: polyethylene glycoL 3350 17 GM PACKET PO SCH (10:33)
[2019-12-14] MEDS: SENNA 8.6 MG TABLET PO SCH (10:33)
[2019-12-14] MEDS: traMADol 50 MG TABLET PO SCH ×2 (10:34→21:19)
--- NOTE | 2019-12-14 14:17 | PROVIDER PROGRESS NOTE ---
Subjective - Prog Note Date Prog Note Date: 12/14/19 Prog Note Time: 14:14 - Subjective Subjective: Today, pt lethargic but with gentle touch, began moaning and appeared uncomfortable. Discussed with RN regarding this and administer Dilaudid PRN. Current Medications - Current Medications Current Medications: Acetaminophen (Tylenol) 650 mg GA Q6HR PRN PRN Reason: Pain or Fever > 38C (100.4F) Last Admin: 12/12/19 09:45 Dose: 650 mg Acetaminophen (Tylenol) 650 mg GA Q4H PRN PRN Reason: Fever >101 Albuterol () 2.5 mg INH RTQ4H PRN PRN Reason: Wheezing Albuterol/Ipratropium (Duoneb) 3 ml INH RTQID PRN PRN Reason: Shortness of Air/Wheezing Last Admin: 12/14/19 04:59 Dose: 3 ml Atropine Sulfate (Isopto Atropine 1% Ophth Drops) 1 - 4 drops SL Q2H PRN PRN Reason: Excessive secretions Last Admin: 12/14/19 13:38 Dose: 4 drops Carboxymethylcellulose (Refresh 1% Ophth Drops) 1 drops EACHEYE QID PRN PRN Reason: Dry Eye Docusate Sodium (Colace 250mg Capsule) 250 - 500 mg PO DAILY [facility] Last Admin: 12/14/19 10:33 Dose: Not Given Glycopyrrolate (Robinul) 0.2 mg SUBQ Q4H PRN PRN Reason: Excessive secretions Haloperidol (Haldol Inj) 1 mg IVP Q6H PRN PRN Reason: Agitation Last Admin: 12/13/19 09:25 Dose: 1 mg Haloperidol (Haldol Inj) 0.5 mg IVP Q2H PRN PRN Reason: Agitation Last Admin: 12/14/19 10:06 Dose: 0.5 mg Hydromorphone HCl (Dilaudid) 2 mg PO Q4HR PRN PRN Reason: Shortness of Air/Wheezing Hydromorphone HCl (Dilaudid Inj Syringe) 0.5 mg IVP Q2H PRN PRN Reason: PAIN OR SHORTNESS OF BREATH Last Admin: 12/14/19 13:36 Dose: 0.5 mg Lorazepam (Ativan) 1 mg PO Q6H PRN PRN Reason: Anxiety/Agitation Lorazepam (Ativan Inj (Vial)) 1 mg IVP Q6H PRN PRN Reason: Anxiety/Agitation Last Admin: 12/14/19 13:36 Dose: 1 mg Multi-Ingredient Mouthwash/Gargle () 5 ml PO Q2H PRN PRN Reason: Mucositis Ondansetron HCl (Zofran Inj) 4 mg IVP Q6HR PRN PRN Reason: Nausea / Vomiting Polyethylene Glycol (Miralax) 17 gm PO DAILY [facility] Last Admin: 12/14/19 10:33 Dose: Not Given Quetiapine Fumarate (Seroquel) 75 mg PO BID [facility] Last Admin: 12/14/19 10:33 Dose: Not Given Senna (Senokot) 8.6 - 17.2 mg PO DAILY [facility] Last Admin: 12/14/19 10:33 Dose: Not Given Sodium Chloride (Normal Saline Flush 0.9%) 10 ml IVP PRN PRN PRN Reason: NEEDED PER PROVIDER ORDERS Last Admin: 12/14/19 13:36 Dose: 10 ml Sodium Chloride (Normal Saline Flush 0.9%) 10 ml IVP 0100,0900,1700 [facility] Last Admin: 12/14/19 00:52 Dose: 10 ml Tramadol HCl (Ultram) 25 mg PO BID [facility] Last Admin: 12/14/19 10:34 Dose: Not Given Objective - Vital Signs/Intake & Output Intake & Output: Intake & Output 12/11/19 12/12/19 12/13/19 12/14/19 23:59 23:59 23:59 23:59 Intake Total 2453.75 2917.50 141.25 Output Total 1250 1875 950 125 Balance 1203.75 1042.50 -808.75 -125 - Objective General Appearance: positive: Lethargic, Other (Mild discomfort with minmal touch) Respiratory: positive: No respiratory distress, Breath sounds nml Cardiovascular: positive: Tachycardia, Systolic murmur Skin: positive: Other (Cyanosis, bluish perioral discoloration) Extremities: positive: No pedal edema Neurologic/Psychiatric: positive: Disoriented to person, Disoriented to place, Disoriented to time - Lab Results Fish Bones: 12/13/19 05:20 12/13/19 05:20 Assessment/Plan - Problem List (1) Acute hypoxemic respiratory failure Impression: Significant worsening hypoxemia on 12/12. Did not tolerate BIPAP trial. Persist ent hypoxemia despite 15L NRB, so guardian Anabell opted to initiate comfort care measures. Etiology of hypoxemia thought to be secondary to pneumonia, possibly COVID-19 Plan: -F/U COVID 19 -Comfort care measures initiated on AM of 12/13/2019 -Hospice referral placed -Discussed with case management. Pending possible D/C back to SNF, which is complicated by pending COVID 19 results for this patient in addition to known positive COVID patients at SNF. SNF awaiting further recommendations from [facility] (2) Sepsis Identified on 12/12 at 1530. Tachycardia, tachypnea, fever suspect due to PNA (bacterial vs. viral e.g. ?COVID 19) and UTI. Qualifiers: Sepsis type: sepsis due to unspecified organism Sepsis acute organ dysfunction status: with acute organ dysfunction Acute respiratory failure type: with hypoxia Severe sepsis shock status: without septic shock (3) Citrobacter and Klebsiella UTI (urinary tract infection) Urine culture 12/09 Qualifiers: Urinary tract infection type: acute cystitis Hematuria presence: without hematuria Qualified Code(s): N30.00 - Acute cystitis without hematuria (4) Atypical pneumonia CXR with bilateral densities. Possibly viral etiology, e.g. COVID-19? (5) COPD (chronic obstructive pulmonary disease) Exacerbation due to pneumonia as above Qualifiers: COPD type: COPD with acute exacerbation Qualified Code(s): J44.1 - Chronic obstructive pulmonary disease with (acute) exacerbation (6) Acute metabolic encephalopathy Impression: Suspect due to acute illness in setting of dementia and schizophrenia. M Plan: -Comfort care measures as above -PRN Haldol -PRN bronchodilators -Continue home Seroquel -Changed IV morphine to PRN Dialudid in setting of CKD Qualifiers: Altered mental status type: transient alteration of awareness Qualified Code(s): R40.4 - Transient alteration of awareness
--- NOTE | 2019-12-14 21:53 | Discharge Plan ---
Discharge Plan Problem Reviewed?: Yes Disposition: 20 No Smoking: If you smoke, Please STOP! Call for help. Follow-up with: Roberto Odom, [Primary Care Provider] -
--- NOTE | 2019-12-14 21:55 | DISCHARGE SUMMARY ---
"Discharge Summary Admit Date: 12/10/19 Discharge Date: 12/14/19 Discharging Provider: Marcin Rivero Primary Care Provider: Roberto Odom Code Status: Do Not Attempt Resuscitation Discharge Disposition: 20 - DIAGNOSES Admission Diagnoses: Altered mental status Atypical pneumonia UTI COPD Schizophrenia Hypertension Hypothyroidism History of myocardial infarction Dementia Discharge Diagnoses with Status of Each Condition: Acute hypoxemic respiratory failure Altered mental status Atypical pneumonia Suspect COVID-19 Fever Citrobacter and Klebsiella UTI COPD Schizophrenia Hypertension Hypothyroidism History of myocardial ischemia Dementia Sepsis - HPI History of Present Illness: H&P per [facility] Child on 12/10/2019: This is 79-yrs-old female with a PMH significant for Hypertension, hx of Pulmonary embolism, [place], Asthma, Dementia, schizophrenia, hypothyroidism, alcoholic abuse, COPD with hx of cigarette smoker, who present ER for dyspnea. pt is confused today and she could not provide information. Per ER provider's report from [facility] patient has became hypoxic and tachypneic at rest, and her symptoms including shortness of breath progressed rapidly. CXR reveals interval development of interstitial opacities in the lungs bilaterally in which Differential diagnosis includes pulmonary edema and interstitial pneumonia, with no evidence for pulmonary vascular congestion or pleural effusions. In route lab test in ER, pt has WBC 2.9, elevated creatinine 1.4, slight AST 53, and slight elevated D-dimer 375. pt is afebrile now and require 2 liter of O2 to remain 98% sats now. ER provider ordered Covid 19 virus lung infection, and result is pen ding. pt is admitted for further evaluation and treatment in medical floor. pt has new PLOST which reveal full code status. - CONSULTS | PROCEDURES Consultations: Social work. - HOSPITAL COURSE Hospital Course: Patient was admitted to the floor for encephalopathy and atypical pneumonia. Given her presentation, the concern was for a viral pneumonia secondary to COVID-19. She was leukopenic with lymphopenia and slightly elevated AST and d- dimer. She was initially afebrile on admission. She treated with ceftriaxone and azithromycin for her pneumonia and urinary tract infection. During her hospitalization, her oxygen requirements began to increase from 3 L to 6 L of oxygen via nasal cannula. Repeat chest x-ray showed worsening infiltrates. She began to spike low-grade fevers. Her antibiotics were broadened to vancomycin, cefepime, azithromycin. We did discuss with her guardian, Anabell regarding goals of care as the patient was initially a full code. Anabell stated that the patient would not want to be intubated or resuscitated if her condition were to decline. Unfortunately her hypoxia continue became more severe and she required 15 L of oxygen via nonrebreather mask. Her O2 sats remained in the high 80s and low 90s. We did trial BiPAP but unfortunately the patient not tolerat it well and kept pulling at the mask and removing it. This was discussed with Anabell who stated that we discontinue BiPAP therapy and continue with a nonrebreather mask as the patient was tolerating that. Unfortunately, her oxygen saturations continued to decline. This was discussed with her guardian, Anabell who decided to focus on the patient's comfort. Se was started on Dilaudid, Ativan, Haldol as needed and the focus was comfort. Antibiotics were discontinued. Patient on December 13 at 2142. Her guardian, Anabell was notified and she will attempt to get a hold of the family. We still have not had the COVID-19 PCR resulted but it is assumed to be positive given her clinical picture. - ALLERGIES Allergies/Adverse Reactions: Allergies Allergy/AdvReac Type Severity Reaction Status Date / Time egg Allergy Severe Anaphylaxis Verified 12/10/19 16:44 Influenza Virus Vaccines Allergy Severe Anaphylaxis Verified 12/10/19 16:44 lisinopril Allergy Intermediate Edema Verified 12/10/19 12:42 - MEDICATIONS Home Medications: Ambulatory Orders Medication Instructions Recorded Confirmed Aspirin Chewable [[facility] [place]ucky 81 mg PO DAILY 01/14/18 12/10/19 Aspirin] Levothyroxine Sodium [Synthroid] 50 mcg PO [id number] 01/14/18 12/10/19 Levothyroxine Sodium [Synthroid] 100 mcg PO MATTHEWS 01/14/18 12/10/19 Metoprolol Succinate [Toprol Xl] 25 mg PO DAILY 01/14/18 12/10/19 Saccharomyces Boulardii [Florastor] 250 mg PO DAILY 01/14/18 12/10/19 traMADol [Ultram] 25 mg PO BID 01/14/18 12/10/19 Acetaminophen [Tylenol Extra 1,000 mg PO TID 12/10/19 12/10/19 Strength] Ipratropium/Albuterol Sulfate 3 ml IH Q6H PRN 12/10/19 12/10/19 [Iprat-Albut 0.5-3(2.5) mg/3 ml] Melatonin 3 mg PO QPM 12/10/19 12/10/19 Menthol [Cough Drops] 1 brynn MM Q2H PRN 12/10/19 12/10/19 Mirabegron [Myrbetriq] 25 mg PO DAILY 12/10/19 12/10/19 Nitroglycerin [Nitrostat] 0.4 mg SL Q5MIN PRN 12/10/19 12/10/19 Quetiapine Fumarate 75 mg PO BID 12/10/19 12/10/19 Valsartan 40 mg PO DAILY 12/10/19 12/10/19 - PHYSICAL EXAM AT DISCHARGE Eyes Bilateral: positive: Other (Pupils are fixed and dilated.) Respiratory: positive: Other (There are no spontaneous respirations.) Cardiovascular: positive: Other (No heart sounds present.) Peripheral Pulses: positive: 0 Skin: positive: Cyanosis, Pallor - LABS Result Diagrams: 12/13/19 05:20 12/13/19 05:20"
== END 2019-12-14 21:43 | disposition expired | DRG 193 ==
LOC: EDUNIT# → ED 12:26 → MS2 15:40
PROVIDERS: ADMIT Nurse Practitioner Gerontology; ATTEND Internal Medicine
DX: J12.89 Other viral pneumonia (principal); R09.02 Hypoxemia; R91.8 Other nonspecific abnormal finding of lung field; D72.810 Lymphocytopenia; A41.89 Other specified sepsis; F17.200 Nicotine dependence, unspecified, uncomplicated; J96.01 Acute respiratory failure with hypoxia; J45.909 Unspecified asthma, uncomplicated; R65.20 Severe sepsis without septic shock; G93.41 Metabolic encephalopathy; N30.00 Acute cystitis without hematuria; J44.0 Chronic obstructive pulmonary disease with (acute) lower respiratory infection; J44.1 Chronic obstructive pulmonary disease with (acute) exacerbation; B97.29 Other coronavirus as the cause of diseases classified elsewhere; B96.1 Klebsiella pneumoniae [K. pneumoniae] as the cause of diseases classified elsewhere; B96.89 Other specified bacterial agents as the cause of diseases classified elsewhere; I10 Essential (primary) hypertension; F20.9 Schizophrenia, unspecified; E03.9 Hypothyroidism, unspecified; F03.90 Unspecified dementia, unspecified severity, without behavioral disturbance, psychotic disturbance, mood disturbance, and anxiety; F17.211 Nicotine dependence, cigarettes, in remission; F10.10 Alcohol abuse, uncomplicated; Z66 Do not resuscitate; Z79.82 Long term (current) use of aspirin; Z79.891 Long term (current) use of opiate analgesic; Z95.5 Presence of coronary angioplasty implant and graft; Z86.711 Personal history of pulmonary embolism; I25.2 Old myocardial infarction
CPT/HCPCS: 36415; 71045; 74018; 80053; 81001; 81599; 82550; 83036; 83605; 83690; 83735; 83880; 84443; 84484; 85025; 85379; 85610; 86140; 87040; 87077; 87086; 87181; 87275; 87276; 94640; 99285; A9270; J1170; J1650; J2060; J3370; 81003; 82803